=== PATIENT | female | born 1955 | race Caucasian/White ===

== ENCOUNTER 2020-07-20 13:57 | Outpatient (REF) | payer MEDICARE, SELFPAY | END 2020-07-20 13:58 | disposition home or self-care (01) | LOC: HO.LNP 13:57 | PROVIDERS: Visit Provider Hospitalist | DX: N39.0 Urinary tract infection, site not specified (principal) | CPT/HCPCS: 87086; 87088; 87186 ==

== ENCOUNTER 2020-11-23 07:56 | Outpatient (REF) | payer MEDICARE, SELFPAY ==
[2020-11-23 08:25] LABS: Glucose Urine UA NEG (NEG); Leukocyte Esterase Urine 1+ (NEG); Nitrite Urine POS (NEG); PH 5.5 (5.0-8.0); Urine Blood NEG (NEG); Urine Ketones NEG (NEG); Urine Protein NEG (NEG-TRACE)
[2020-11-23 08:26] LABS: Appearance Urine CLOUDY; Color Urine YELLOW
[2020-11-23 08:36] LABS: Bacteria Urine 4+ /LPF; RBC Urine 0 /HPF (0); Squamous Epithelial Cell Urine 1+ /LPF; Urine Talc Crystals 4+ /LPF
[2020-11-23 08:48] LABS: MANUAL DIFF FLAG NO
[2020-11-23 09:03] LABS: Basophils Absolute Auto 0.1 X10*3/uL (0.0-0.2); Basophils Percent Auto 0.8 % (0-2); Eosinophils Absolute Auto 0.3 X10*3/uL (0.0-0.4); Eosinophils Percent Auto 3.1 % (0-4); Hematocrit 47.1 % (37-47); Hemoglobin 15.6 g/dl (12.0-16.0); Imm Gran Abs Auto 0.02 X10*3/uL (0.00-0.03); Imm Gran Pct Auto 0.2 % (0.0-0.4); Lymphocytes Absolute Auto 3.2 X10*3/uL (1.2-4.9); Lymphocytes Percent Auto 37.9 % (20-40); Mean Corpuscular HGB Conc 33.1 g/dl (31.0-35.0); Mean Corpuscular Hemoglobin 30.2 pg (27.0-33.0); Mean Corpuscular Volume 91.3 fL (80-98); Mean Platelet Volume 9.6 fL (9.4-12.3); Monocytes Absolute Auto 0.8 X10*3/uL (0.1-1.2); Monocytes Percent Auto 9.6 % (2-11); Neutrophils Absolute Auto 4.1 X10*3/uL (2.0-8.3); Neutrophils Percent Auto 48.4 % (45-73); Platelet Count 308 X10*3/uL (160-400); Red Blood Count 5.16 X10*6/uL (4.20-5.50); Red Cell Distribution Width 13.6 % (11.0-16.0); White Blood Count 8.5 X10*3/uL (4.8-10.8)
[2020-11-23 09:15] LABS: Estimated Average Glucose 108 mg/dL; Hemoglobin A1c % 5.4 %
[2020-11-23 09:27] LABS: Alanine Aminotransferase 13 U/L (0-31); Albumin Level 4.6 g/dL (3.5-5.0); Alkaline Phosphatase 102 U/L (39-117); Anion Gap 12 (12-20); Aspartate Amino Transferase 17 U/L (5-31); Bilirubin Total 0.7 mg/dL (0.0-1.0); Blood Urea Nitrogen 14 mg/dL (9-16); Calcium 9.7 mg/dL (8.4-10.2); Carbon Dioxide 27 mmol/L (22-29); Chloride 105 mmol/L (96-108); Cholesterol 235 mg/dL; Estimated Glomerular Filt Rate > 60; Glucose Random 92 mg/dL (60-115); HDL Cholesterol 74 mg/dL; LDL Cholesterol Calculated 135 mg/dl; Potassium 4.3 mmol/L (3.3-5.1); Sodium 140 mmol/L (135-145); Total Protein 7.3 g/dL (6.5-8.0); Triglycerides 132 mg/dL
[2020-11-23 09:48] LABS: Free T4 (Free Thyroxine) 0.95 ng/dL (0.71-1.85); Thyroid Stimulating Hormone 1.79 uIU/mL (0.32-4.0); Vitamin D 25-OH Total 25.4 ng/mL (>30)
[2020-11-23 09:58] LABS: Folate 12.7 ng/mL (> or = 4.0); Vitamin B12 713 pg/mL (200-900)
== END 2020-11-23 07:57 | disposition home or self-care (01) ==
LOC: HO.LAB 07:56
PROVIDERS: PCP Internal Medicine; Visit Provider Internal Medicine
DX: E78.00 Pure hypercholesterolemia, unspecified (principal); R30.0 Dysuria
CPT/HCPCS: 36415; 80053; 80061; 81001; 82306; 82607; 82746; 83036; 84439; 84443; 85025; 87086; 87088; 87186

== ENCOUNTER 2021-02-19 14:42 | Outpatient (REF) | payer MEDICARE, SELFPAY ==
--- NOTE | ~2021-02-19 | US_ITS ---
EXAMINATION: US ABDOMEN LIMITED CLINICAL INFORMATION: Abnormal LFTs. COMPARISON: None TECHNIQUE: Real-time imaging of the right upper quadrant abdominal viscera. FINDINGS: PANCREAS: Normal. LIVER: Liver is of increased echogenicity consistent with fatty infiltration. The liver is normal in size. The liver contour is normal. No focal hepatic lesion. There is no intrahepatic biliary duct dilatation seen. GALLBLADDER: Normal. The gallbladder is physiologically distended without evidence of stones, sludge, polyps, wall thickening or pericholecystic fluid. COMMON BILE DUCT: Normal in caliber measuring 0.60 cm in diameter. RIGHT KIDNEY: Normal. No hydronephrosis. No renal calculi or focal parenchymal lesions. The kidney measures 9.9 cm in maximum dimension. FREE FLUID: None. US/US abdomen limited IMPRESSION: Fatty infiltration of the liver.
== END 2021-02-19 14:43 | disposition home or self-care (01) ==
LOC: HO.HMGCX 14:42
PROVIDERS: PCP Internal Medicine; Visit Provider Internal Medicine
DX: R10.11 Right upper quadrant pain (principal); R79.89 Other specified abnormal findings of blood chemistry
CPT/HCPCS: 76705

== ENCOUNTER 2021-11-12 07:57 | Outpatient (REF) | payer MEDICARE, SELFPAY ==
[2021-11-12 08:51] LABS: MANUAL DIFF FLAG NO
[2021-11-12 08:53] LABS: Basophils Absolute Auto 0.1 X10*3/uL (0.0-0.2); Basophils Percent Auto 1.2 % (0-2); Eosinophils Absolute Auto 0.4 X10*3/uL (0.0-0.4); Eosinophils Percent Auto 4.7 % (0-4); Hematocrit 47.3 % (37.0-47.0); Hemoglobin 15.5 g/dl (12.0-16.0); Imm Gran Abs Auto 0.01 X10*3/uL (0.00-0.03); Imm Gran Pct Auto 0.1 % (0.0-0.4); Lymphocytes Absolute Auto 3.1 X10*3/uL (1.2-4.9); Lymphocytes Percent Auto 40.6 % (20-40); Mean Corpuscular HGB Conc 32.8 g/dl (31.0-35.0); Mean Corpuscular Hemoglobin 30.3 pg (27.0-33.0); Mean Corpuscular Volume 92.6 fL (80.0-98.0); Mean Platelet Volume 9.1 fL (9.4-12.3); Monocytes Absolute Auto 0.8 X10*3/uL (0.1-1.2); Monocytes Percent Auto 9.9 % (2-11); Neutrophils Absolute Auto 3.3 x10*3/uL (2.0-8.3); Neutrophils Percent Auto 43.5 % (45-73); Platelet Count 289 X10*3/uL (160-400); Red Blood Count 5.11 X10*6/uL (4.20-5.50); Red Cell Distribution Width 13.4 % (11.0-16.0); White Blood Count 7.7 X10*3/uL (4.8-10.8)
[2021-11-12 09:17] LABS: Estimated Average Glucose 108 mg/dL; Hemoglobin A1c % 5.4 %
[2021-11-12 09:23] LABS: Alanine Aminotransferase 11 U/L (0-31); Albumin Level 4.4 g/dL (3.5-5.0); Alkaline Phosphatase 88 U/L (39-117); Anion Gap 11 (12-20); Aspartate Amino Transferase 18 U/L (5-31); Bilirubin Total 0.7 mg/dL (0.0-1.0); Blood Urea Nitrogen 14 mg/dL (9-16); Calcium 9.7 mg/dL (8.4-10.2); Carbon Dioxide 30 mmol/L (22-29); Chloride 106 mmol/L (96-108); Cholesterol 222 mg/dL; Estimated Glomerular Filt Rate > 60; Glucose Random 98 mg/dL (60-115); HDL Cholesterol 70 mg/dL; LDL Cholesterol Calculated 125 mg/dl; Potassium 4.5 mmol/L (3.3-5.1); Sodium 142 mmol/L (135-145); Total Protein 7.1 g/dL (6.5-8.0); Triglycerides 135 mg/dL
[2021-11-12 09:38] LABS: Free T4 (Free Thyroxine) 1.04 ng/dL (0.71-1.85); Vitamin D 25-OH Total 39.9 ng/mL (>30)
[2021-11-12 09:40] LABS: Appearance Urine HAZY; Color Urine YELLOW; Glucose Urine UA NEG (NEG); Leukocyte Esterase Urine 1+ (NEG); Nitrite Urine NEG (NEG); PH 5.5 (5.0-8.0); Specific Gravity - Urine <= 1.005 (1.005-1.025); Urine Blood TRACE (NEG); Urine Ketones NEG (NEG); Urine Protein NEG (NEG-TRACE)
[2021-11-12 10:01] LABS: RBC Urine 0-2 /HPF (0); Squamous Epithelial Cell Urine 2+ /LPF
[2021-11-12 10:06] LABS: Bacteria Urine 1+ /LPF; Mucus Urine 1+ /LPF
[2021-11-12 10:08] LABS: Folate 17.2 ng/mL (> or = 4.0); Vitamin B12 619 pg/mL (200-900)
== END 2021-11-12 07:58 | disposition home or self-care (01) ==
LOC: HO.LAB 07:57
PROVIDERS: PCP Internal Medicine; Visit Provider Internal Medicine
DX: E78.00 Pure hypercholesterolemia, unspecified (principal); R73.01 Impaired fasting glucose; R30.0 Dysuria
CPT/HCPCS: 36415; 80053; 80061; 81001; 82306; 82607; 82746; 83036; 84439; 84443; 85025

== ENCOUNTER 2022-04-23 08:41 | Outpatient (REF) | payer MEDICARE, SELFPAY ==
[2022-04-23 08:56] LABS: MANUAL DIFF FLAG NO
[2022-04-23 09:26] LABS: Basophils Absolute Auto 0.1 X10*3/uL (0.0-0.2); Basophils Percent Auto 0.7 % (0-2); Eosinophils Absolute Auto 0.1 X10*3/uL (0.0-0.4); Eosinophils Percent Auto 1.5 % (0-4); Hematocrit 45.8 % (37.0-47.0); Hemoglobin 15.1 g/dl (12.0-16.0); Imm Gran Abs Auto 0.03 X10*3/uL (0.00-0.03); Imm Gran Pct Auto 0.4 % (0.0-0.4); Lymphocytes Percent Auto 35.4 % (20-40); Mean Corpuscular Hemoglobin 30.5 pg (27.0-33.0); Mean Corpuscular Volume 92.5 fL (80.0-98.0); Mean Platelet Volume 9.4 fL (9.4-12.3); Monocytes Absolute Auto 0.9 X10*3/uL (0.1-1.2); Neutrophils Absolute Auto 4.4 x10*3/uL (2.0-8.3); Platelet Count 287 X10*3/uL (160-400); Red Blood Count 4.95 X10*6/uL (4.20-5.50); Red Cell Distribution Width 13.7 % (11.0-16.0); White Blood Count 8.5 X10*3/uL (4.8-10.8)
[2022-04-23 10:36] LABS: Folate 16.9 ng/mL (> or = 4.0); Vitamin B12 542 pg/mL (200-900)
[2022-04-23 10:54] LABS: Appearance Urine CLEAR; Color Urine STRAW; Glucose Urine UA NEG (NEG); Leukocyte Esterase Urine 1+ (NEG); Nitrite Urine NEG (NEG); Specific Gravity - Urine <= 1.005 (1.005-1.025); Urine Blood NEG (NEG); Urine Ketones NEG (NEG); Urine Protein NEG (NEG-TRACE)
[2022-04-23 11:09] LABS: Bacteria Urine TRACE /LPF; RBC Urine 0-2 /HPF (0); Squamous Epithelial Cell Urine 2+ /LPF
[2022-04-23 13:55] LABS: Alanine Aminotransferase 16 U/L (0-31); Albumin Level 4.5 g/dL (3.5-5.0); Alkaline Phosphatase 79 U/L (39-117); Anion Gap 15 (12-20); Aspartate Amino Transferase 20 U/L (5-31); Bilirubin Total 0.7 mg/dL (0.0-1.0); Blood Urea Nitrogen 16 mg/dL (9-16); Calcium 9.3 mg/dL (8.4-10.2); Carbon Dioxide 27 mmol/L (22-29); Chloride 105 mmol/L (96-108); Cholesterol 234 mg/dL; Estimated Glomerular Filt Rate > 60; Glucose Random 96 mg/dL (60-115); HDL Cholesterol 72 mg/dL; LDL Cholesterol Calculated 137 mg/dl; Potassium 4.5 mmol/L (3.3-5.1); Sodium 142 mmol/L (135-145); Triglycerides 127 mg/dL
[2022-04-23 14:00] LABS: Estimated Average Glucose 105 mg/dL; Hemoglobin A1c % 5.3 %
[2022-04-23 14:03] LABS: Free T4 (Free Thyroxine) 0.94 ng/dL (0.71-1.85); Vitamin D 25-OH Total 39.6 ng/mL (>30)
== END 2022-04-23 08:42 | disposition home or self-care (01) ==
LOC: HO.LAB 08:41
PROVIDERS: PCP Internal Medicine; Visit Provider Internal Medicine
DX: R73.01 Impaired fasting glucose (principal); R30.0 Dysuria; E78.00 Pure hypercholesterolemia, unspecified
CPT/HCPCS: 36415; 80053; 80061; 81001; 82306; 82607; 82746; 83036; 84439; 84443; 85025

== ENCOUNTER 2022-07-04 07:19 | Emergency (ER) | payer MEDICARE, SELFPAY ==
--- NOTE | ~2022-07-04 | XR_ITS ---
EXAMINATION: XR WRIST, LEFT XR FOREARM, LEFT CLINICAL INFORMATION: Status post fall. COMPARISON: None TECHNIQUE: 3 views of the left wrist. 2 views of the left forearm. FINDINGS: Mild osseous demineralization is noted. Although not clearly appreciated on the wrist x-rays I do suspect nondisplaced fracture of the distal radial metaphysis on the lateral view of the forearm, with questionable intra-articular extension. No additional definite acute fractures are noted in the left wrist and left forearm. Elbow joint and wrist joint alignments are maintained. No evidence of soft tissue air or radiopaque foreign body. No evidence of elbow joint effusion. XR/XR forearm LT 2V IMPRESSION: Nondisplaced left distal radial metaphyseal fracture with probable intra-articular extension is suspected. Recommend clinical correlation. No additional acute fractures are noted in the left wrist and left forearm.
--- NOTE | ~2022-07-04 | XR_ITS ---
EXAMINATION: XR WRIST, LEFT XR FOREARM, LEFT CLINICAL INFORMATION: Status post fall. COMPARISON: None TECHNIQUE: 3 views of the left wrist. 2 views of the left forearm. FINDINGS: Mild osseous demineralization is noted. Although not clearly appreciated on the wrist x-rays I do suspect nondisplaced fracture of the distal radial metaphysis on the lateral view of the forearm, with questionable intra-articular extension. No additional definite acute fractures are noted in the left wrist and left forearm. Elbow joint and wrist joint alignments are maintained. No evidence of soft tissue air or radiopaque foreign body. No evidence of elbow joint effusion. XR/XR wrist LT 2V IMPRESSION: Nondisplaced left distal radial metaphyseal fracture with probable intra-articular extension is suspected. Recommend clinical correlation. No additional acute fractures are noted in the left wrist and left forearm.
[2022-07-04 07:26] VITALS: BP 147/94; PULSE 84; RESP 16; TEMP 36.8; O2SAT 94; BMI 26.0
[2022-07-04 07:37] VITALS: BP 150/92; PULSE 91; RESP 14; TEMP 36.7; O2SAT 94
[2022-07-04] MEDS: Acetaminophen 325 MG TABLET 975 MG PO (08:40)
[2022-07-04] MEDS: Ibuprofen 400 MG TABLET PO (08:41)
--- NOTE | 2022-07-04 08:42 | PC.NURSE ---
patient a/ox4 . jimrla . heart rate regular at 88 beats per minute . lungs clear . skin pink warm and dry . patient came in for a fall out of bed this AM onto left wrist , reports pain 8 out of 10 .Obtained order for Tylenol 975 and 400mg of Motrin administered to patient as ordered . positive CMS . Patient has had Xray done . patient aware of plan of care .
--- NOTE | 2022-07-04 09:46 | ED_ITS ---
HPI - Extremity Problem General Chief complaint: Extremity Injury, Upper Stated complaint: fall L hand INJ/swollen Time Seen by Provider: 07/04/22 08:05 Source: patient Mode of arrival: ambulatory History of Present Illness HPI Narrative: 67-year-old female with history of COPD presents with left wrist pain after she states she fell out of bed catching herself on her left wrist. She notes that it was painful thereafter but denies any numbness or tingling. Related Data Home Medications Medication Instructions Recorded Confirmed diazepam 10 mg tablet 10 mg PO TID PRN 07/20/20 04/29/22 fluticasone furoate 200 inhalation 07/20/20 04/29/22 mcg-vilanterol 25 mcg/dose inhalation powder ipratropium 0.5 mg-albuterol 3 mg ml inhalation Q6H 07/20/20 04/29/22 (2.5 mg base)/3 mL nebulization soln ipratropium 20 mcg-albuterol 100 inhalation 07/20/20 04/29/22 mcg/actuation mist for inhalation ipratropium bromide 0.02 % 1 inhalation Q8H 07/20/20 04/29/22 solution for inhalation Allergies Allergy/AdvReac Type Severity Reaction Status Date / Time doxycycline Allergy Intermediate unknown Verified 07/04/22 07:26 meperidine [Demerol] Allergy Intermediate nausea and Verified 07/04/22 07:26 vomiting morphine [MORPHINE] Allergy Intermediate NAUSEA & Verified 07/04/22 07:26 VOMITING, nausea and vomiting oxycodone [OXYCODONE] Allergy Intermediate NAUSEA & Verified 07/04/22 07:26 VOMITING OxyContin Allergy Unknown nausea and Uncoded 04/29/22 09:46 vomiting Review of Systems Review of Systems: Pertinent positives and negatives as stated in HPI 10 point review of systems is otherwise negative. PMFSH Past Medical History Source: nursing notes reviewed Medical History Allergic rhinitis COPD (chronic obstructive pulmonary disease) Generalized anxiety disorder Hypercholesterolemia Right rib fracture Surgical History History of ankle surgery History of pubovaginal sling History of repair of rotator cuff History of tonsillectomy History of tubal ligation Family History Family History Father CVD (cardiovascular disease) Myocardial infarction Mother Hypertension Sister No problems noted. Son No problems noted. Son No problems noted. Daughter No problems noted. Daughter No problems noted. Social History Social History Housing: House Alcohol intake: never Patient Tobacco Use Status: Former Tobacco user e-Cigarette/Vaping Use: Never Used Advance Directives: Yes Advance Directives Information Provided: Yes Advance Directives on File: No service: No Cognitive needs: No Hearing needs: No Vision needs: Yes Physical Exam Vital Signs: Vital Signs: Last Vital Signs Temp 98.1 F 07/04/22 07:37 Pulse 91 07/04/22 07:37 Resp 14 07/04/22 07:37 BP 150/92 H 07/04/22 07:37 Pulse Ox 94 07/04/22 07:37 O2 Del Method 07/04/22 07:37 BMI result Body Mass Index 26.0 VITAL SIGNS: Reviewed. GENERAL: Well developed, well nourished, in no acute distress. HEAD: Normocephalic/atraumatic EYES: PERRLA, EOMI EARS: Ext canals without abnormality OROPHARYNX: no oral lesions noted, posterior pharynx clear LUNGS: Normal breath sounds. No adventitious sounds or accessory muscle use. SpO2<94> CARDIOVASCULAR: Regular rate and rhythm without noted murmurs ABDOMEN: Soft, non-tender, non-distended with bowel sounds. MUSCULOSKELETAL: No tenderness, deformities, or effusions noted on gross inspection. EXTREMITIES: No cyanosis, clubbing or edema;LUE: Mild swelling at the radial aspect of left upper extremity minimal deformity sensation pulses intact hand is warm. SKIN: Inspection of the skin reveals no rashes NEUROLOGIC: Alert and oriented x 4. Strength and sensation to light touch were grossly intact x 4. Course Course Course Narrative: 67-year-old female with history and clinical presentation consistent with suspected fracture and on review of imaging studies there is in nondisplaced distal radial fracture, patient received combination analgesics as well as ice for pain control and on re-evaluation her pain has completely resolved. Sugar- tong splint was put in place and patient will receive a referral to follow-up with orthopedic surgery. She is aware of all results and acknowledges the plan. Discharge Plan Discharge Clinical Impression: Nondisplaced fracture of head of left radius Patient Disposition: Home, Self-Care Instructions: Arm Fracture in Adults (ED), Splint Care (ED) Additional Instructions: 1. Resume all home medications as prescribed. 2. Recommend [id number] Tylenol/ibuprofen as needed for pain control. Also apply ice to unexposed skin for 10-15 minutes, 3 to 4 times a day. 3. You have been provided with a referral to follow-up with orthopedic surgery. Return to the ER for worsening symptoms. Prescriptions: No Action Breo Ellipta 200-25 mcg/dose blister with device inhalation Combivent Respimat 20-100 mcg/actuation mist inhalation diazepam 10 mg tablet 10 mg PO TID PRN ipratropium bromide 0.02 % solution 1 inhalation Q8H ipratropium-albuterol 0.5 mg-3 mg(2.5 mg base)/3 mL solution for nebulization inhalation Q6H Referrals: Otoniel Maki MD [Physician] - (Left is nondominant hand, not displaced left radius fracture, sugar-tong splint is in place) Po,Daniel Lowery MD [Primary Care Provider] -
[2022-07-04 10:41] VITALS: BP 148/88; PULSE 88; RESP 16; TEMP 36.7; O2SAT 96
--- NOTE | 2022-07-04 10:42 | PC.NURSE ---
patient a/ox4 . went over discharge instructions as ordered by provider . patient given contact information for follow up with orthopedics . Given education on CMS checks on left hand and when to return to ED . Patient has no questions at this time .
== END 2022-07-04 10:45 | disposition home or self-care (01) ==
PROVIDERS: Emergency Provider Student in an Organized Health Care Education/Training Program; PCP Internal Medicine
DX: S52.122A Displaced fracture of head of left radius, initial encounter for closed fracture (principal); W06.XXXA Fall from bed, initial encounter; Y93.9 Activity, unspecified; Y92.003 Bedroom of unspecified non-institutional (private) residence as the place of occurrence of the external cause; Y99.9 Unspecified external cause status; Z79.899 Other long term (current) drug therapy; Z87.891 Personal history of nicotine dependence
CPT/HCPCS: 29105; 73090; 73100; 99284

== ENCOUNTER 2022-07-09 05:17 | Outpatient (REF) | payer MEDICARE, SELFPAY ==
--- NOTE | ~2022-07-09 | XR_ITS ---
EXAMINATION: XR WRIST, LEFT CLINICAL INFORMATION: Pain. COMPARISON: Left wrist radiograph 07/04/2022. TECHNIQUE: PA, lateral, and oblique views of the left wrist. FINDINGS: Again noted very subtle nondisplaced distal radial fracture with intra-articular extension. No new injuries. Anatomic alignment is maintained. 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 No erosions. Nonspecific diffuse soft tissue swelling. XR/XR wrist LT min 3V IMPRESSION: 1. Redemonstration of a very subtle nondisplaced distal radial fracture with intra-articular extension. 2. No new injuries.
== END 2022-07-09 05:18 | disposition home or self-care (01) ==
LOC: HO.HOSX 05:17
PROVIDERS: Visit Provider Physician Assistant
DX: M25.532 Pain in left wrist (principal); S52.502A Unspecified fracture of the lower end of left radius, initial encounter for closed fracture; W06.XXXA Fall from bed, initial encounter; Y93.9 Activity, unspecified; Y92.9 Unspecified place or not applicable; Y99.8 Other external cause status
CPT/HCPCS: 29085; 73110; 99202

== ENCOUNTER 2022-08-20 08:07 | Outpatient (REF) | payer MEDICARE, SELFPAY ==
--- NOTE | ~2022-08-20 | XR_ITS ---
EXAMINATION: XR WRIST, LEFT CLINICAL INFORMATION: Left wrist pain. COMPARISON: July 09, 2022 and July 04, 2022. TECHNIQUE: PA, lateral, and oblique views of the left wrist. XR/XR wrist LT min 3V FINDINGS/IMPRESSION: Decreased bone mineral density limits sensitivity for subtle fracture. Lucencies overlying the distal radius and ulna appear to represent skin folds. No definite acute fracture is identified as such. If clinical suspicion for nondisplaced fracture persists, nuclear bone scan or MRI may be of use for further evaluation. The trapezium appears surgically absent. No dislocation is seen. The soft tissues appear unremarkable.
== END 2022-08-20 08:08 | disposition home or self-care (01) ==
LOC: HO.HOSX 08:07
PROVIDERS: Visit Provider Physician Assistant
DX: M25.532 Pain in left wrist (principal)
CPT/HCPCS: 73110; 99212

== ENCOUNTER → 2022-08-20 13:17 | Outpatient (BNVA) | payer MEDICARE, SELFPAY | PROVIDERS: PCP Internal Medicine; Visit Provider Physician Assistant | DX: S52.502D Unspecified fracture of the lower end of left radius, subsequent encounter for closed fracture with routine healing (principal) | CPT/HCPCS: 99212 ==

== ENCOUNTER 2022-09-16 09:18 | Outpatient (REF) | payer MEDICARE, SELFPAY ==
--- NOTE | ~2022-09-16 | XR_ITS ---
EXAMINATION: XR HAND, RIGHT CLINICAL INFORMATION: Pain. COMPARISON: None TECHNIQUE: PA, lateral, and oblique views of the right hand. FINDINGS: There is diffuse osteopenia. No visible fracture, dislocation or subluxation seen. There is loss of PIP and DIP joint space. The soft tissues are normal. XR/XR hand RT min 3V IMPRESSION: Mild degenerative osteoarthritic changes without any acute fracture or dislocation. Diffuse osteopenia.
== END 2022-09-16 09:19 | disposition home or self-care (01) ==
LOC: HO.HOSX 09:18
PROVIDERS: Visit Provider Orthopaedic Surgery
DX: S52.502A Unspecified fracture of the lower end of left radius, initial encounter for closed fracture (principal); M18.11 Unilateral primary osteoarthritis of first carpometacarpal joint, right hand
CPT/HCPCS: 20600; 73130; 99212; J1020

== ENCOUNTER 2022-10-01 06:17 | Outpatient (REF) | payer MEDICARE, SELFPAY ==
--- NOTE | ~2022-10-01 | XR_ITS ---
EXAMINATION: XR WRIST, LEFT CLINICAL INFORMATION: Left wrist pain COMPARISON: 08/20/2022 TECHNIQUE: PA, lateral, and oblique views of the left wrist. FINDINGS: Subtle residual evidence with linear sclerosis of the healed distal radius fracture. There has been resection of the trapezium with radiocarpal and carpal degenerative changes that appear similar. Calcinosis at the radial aspect of the 5th metacarpal head again noted. There is no acute osseous abnormality. XR/XR wrist LT min 3V IMPRESSION: Healed distal radius fracture. No acute osseous abnormality. Degenerative and postoperative changes as described.
== END 2022-10-01 06:18 | disposition home or self-care (01) ==
LOC: HO.HOSX 06:17
PROVIDERS: Visit Provider Physician Assistant
DX: S52.502D Unspecified fracture of the lower end of left radius, subsequent encounter for closed fracture with routine healing (principal); X58.XXXD Exposure to other specified factors, subsequent encounter; Z98.890 Other specified postprocedural states
CPT/HCPCS: 73110; 99212

== ENCOUNTER 2023-01-28 06:56 | Outpatient (REF) | payer MEDICARE, SELFPAY ==
--- NOTE | ~2023-01-28 | XR_ITS ---
EXAMINATION: XR SHOULDER, RIGHT CLINICAL INFORMATION: Pain in right shoulder COMPARISON: None available. TECHNIQUE: AP external rotation, Grashey, scapular Y, and axillary views of the right shoulder. FINDINGS: Patient is status post rotator cuff tear repair with 3 anchors in the region of greater tuberosity. The joint space is preserved. There is widening of right acromioclavicular joint. There are mild degenerative changes at greater tuberosity. XR/XR shoulder RT min 2V IMPRESSION: Postsurgical changes. AC joint degenerative changes
== END 2023-01-28 06:57 | disposition home or self-care (01) ==
LOC: HO.HOSX 06:56
PROVIDERS: Visit Provider Physician Assistant
DX: M75.81 Other shoulder lesions, right shoulder (principal); M25.511 Pain in right shoulder
CPT/HCPCS: 20610; 73030; 99212; J1040

== ENCOUNTER 2023-02-03 10:06 | Outpatient (REF) | payer MEDICARE, SELFPAY ==
--- NOTE | ~2023-02-03 | MM_ITS ---
EXAMINATION: MM SCREENING DIGITAL BREAST TOMOSYNTHESIS, BILATERAL CLINICAL INFORMATION: Screening. Asymptomatic. The lifetime risk of breast cancer based on the Tyrer-Cuzick Model is 3%. COMPARISON: Mammography: 10/25/2019, 06/13/2014 TECHNIQUE: Digital breast tomosynthesis is performed in both the craniocaudal and mediolateral oblique views along with computer-aided detection (CAD). Synthesized 2D images are generated from the tomosynthesis. FINDINGS: There are scattered areas of fibroglandular density (ACR BI-RADS breast composition Category b). There are no significant masses, abnormal calcifications, or other abnormalities. Parenchymal pattern is similar to prior studies. There is no developing density or architectural abnormality. The axilla and skin contours are unremarkable. No significant changes. MM/MM tomosynthesis screening BI IMPRESSION: No mammographic evidence of malignancy. ASSESSMENT: BI-RADS 1: Negative RECOMMENDATION: Routine annual mammography screening. This patient's information was entered into a reminder system with a target due date for their next mammogram.
--- NOTE | ~2023-02-03 | MM_ITS ---
EXAMINATION: BONE DENSITOMETRY CLINICAL INDICATION: Age-related osteoporosis without current pathological fracture. COMPARISON: Baseline BD dated 10/25/2019. TECHNIQUE: Using a [employer]uff[employer] DXA System (software version: 13.1) manufactured by [employer], dual-energy x-ray absorptiometry was performed of the lumbar spine and left hip. The images are of good technical quality. Summary results are attached. FINDINGS: AP SPINE L1-L3 (excluding L4): The data of L1-L4 has been changed to exclude the L4 vertebral body, because degenerative changes at this level may cause overestimation of lumbar spine density. Current: BMD 0.880 g/cm2, Z-score -1.0, T-score -2.4, osteopenia, 0.7% decrease from baseline (<5% change is not significant). Baseline: BMD 0.886 g/cm2. LEFT FEMUR, NECK: Current: BMD 0.673 g/cm2, Z-score -1.2, T-score -2.6, osteoporosis. Baseline: BMD 0.851 g/cm2. LEFT FEMUR, TOTAL: Current: BMD 0.760 g/cm2, Z-score -0.8, T-score -2.0, osteopenia, 8.8% decrease from baseline (<5% change is not significant). Baseline: BMD 0.833 g/cm2. IDENTIFIED RISK FACTORS: Early menopause, secondary osteoporosis, history of fracture (adult), glucocorticoids (chronic). HISTORY OF FRACTURE: Wrist. Rib. MEDICATIONS: None listed. MM/XR DEXA axial skeleton IMPRESSION: 1. DIAGNOSIS: Osteoporosis based on the lowest T-score value of -2.6 in the femoral neck applying World Health Organization criteria. 2. 10-YEAR FRACTURE RISK PREDICTION, FRAX: According to the guidelines, FRAX calculation should only be performed on patients in the osteopenia bone density category. Therefore, FRAX was not performed on this patient. 3. Treatment Recommendations: NOF guidelines recommend consideration for treatment in postmenopausal women and men age 50 and older presenting with the following: -A hip or vertebral (clinical or morphometric) fracture. -T-score less than or equal to -2.5 at the femoral neck or spine after appropriate evaluation to exclude secondary causes. -Low bone mass at the hip or spine and a 10-year fracture probability by FRAX of greater than or equal to 3% for hip fracture or greater than or equal to 20% for major osteoporotic fracture based on the [place] adapted WHO algorithm. 4. Other Recommendations: All treatment decisions require clinical judgment and consideration of individual patient factors, including patient preferences, comorbidities, previous drug use, risk factors not captured in the FRAX model (e.g. frailty, falls, vitamin D deficiency, increased bone turnover, interval significant decline in bone density) and possible under or overestimation of fracture risk by FRAX. Additional medical evaluation for secondary cause of low bone mineral density may be appropriate. FUTURE SCAN RECOMMENDATION: People with diagnosed cases of osteoporosis or at high risk for fracture should have regular bone mineral density tests. For patients eligible for Medicare, routine testing is allowed once every 2 years. The testing frequency can be increased to one year for patients who have rapidly progressing disease, those who are receiving or discontinuing medical therapy to restore bone mass, or have additional risk factors.
== END 2023-02-03 10:07 | disposition home or self-care (01) ==
LOC: HO.MAMMO 10:06
PROVIDERS: PCP Internal Medicine; Visit Provider Internal Medicine
DX: Z12.31 Encounter for screening mammogram for malignant neoplasm of breast (principal); Z13.820 Encounter for screening for osteoporosis; Z78.0 Asymptomatic menopausal state; M81.0 Age-related osteoporosis without current pathological fracture
CPT/HCPCS: 77063; 77067; 77080

== ENCOUNTER 2023-02-08 10:01 | Emergency (ER) | payer MEDICARE, SELFPAY ==
--- NOTE | ~2023-02-08 | XR_ITS ---
EXAMINATION: XR CHEST CLINICAL INFORMATION: Cough, shortness of breath. COMPARISON: 09/15/2019 chest and rib radiographs. TECHNIQUE: 2 views of the chest were obtained. FINDINGS: A small hazy opacity overlies the right lower lung. Mild linear markings are seen at the left lung base. The upper lung rosas are clear. There are no pleural effusions. The heart and mediastinal structures are unremarkable. XR/XR chest 2V IMPRESSION: Right middle lobe infiltrate.
[2023-02-08 10:08] VITALS: BP 149/84; PULSE 77; RESP 18; TEMP 36.8; O2SAT 96; BMI 27.7
--- NOTE | 2023-02-08 10:50 | ED_ITS ---
HPI - General Adult General Chief complaint: Upper Respiratory Symptoms Stated complaint: Diff breathing Time Seen by Provider: 02/08/23 10:34 Source: patient Limitations: no limitations History of Present Illness HPI narrative: 68-year-old female with longstanding history of COPD presents with increasing cough congestion since sick contacts with at home. Patient denies history of hypertension or diabetes. Patient quit smoking many years prior. Cough is mostly nonproductive and she has chest wall discomfort with coughing. No recent travel history. Symptoms mild to moderate. No other complaints at this time. Related Data Home Medications Medication Instructions Recorded Confirmed diazepam 10 mg tablet 10 mg PO TID PRN 07/20/20 12/18/22 fluticasone furoate 200 inhalation 07/20/20 12/18/22 mcg-vilanterol 25 mcg/dose inhalation powder ipratropium 0.5 mg-albuterol 3 mg ml inhalation Q6H 07/20/20 12/18/22 (2.5 mg base)/3 mL nebulization soln ipratropium 20 mcg-albuterol 100 inhalation 07/20/20 12/18/22 mcg/actuation mist for inhalation ipratropium bromide 0.02 % 1 inhalation Q8H 07/20/20 12/18/22 solution for inhalation Previous Rx's Medication Instructions Recorded azithromycin 250 mg tablet 250 mg PO DAILY 5 days #6 tabs 02/08/23 benzonatate 100 mg capsule 100 mg PO BID PRN cough #10 caps 02/08/23 prednisone 20 mg tablet 40 mg PO DAILY 5 days #10 tabs 02/08/23 Allergies Allergy/AdvReac Type Severity Reaction Status Date / Time doxycycline Allergy Intermediate unknown Verified 02/08/23 10:08 meperidine [Demerol] Allergy Intermediate nausea and Verified 02/08/23 10:08 vomiting morphine [MORPHINE] Allergy Intermediate NAUSEA & Verified 02/08/23 10:08 VOMITING, nausea and vomiting oxycodone [OXYCODONE] Allergy Intermediate NAUSEA & Verified 02/08/23 10:08 VOMITING OxyContin Allergy Unknown nausea and Uncoded 08/20/22 13:34 vomiting Review of Systems Review of Systems: General: No fever, no chills Ophthalmology: No vision changes, no discharge ENT: No sore throat, no ear pain Cardiovascular: Chest wall pain with coughing slight Respiratory: Positive cough positive shortness of breath sputum production minimal Muscle skeletal: No malaise, no back pain, no neck pain, no extremity pain GI: No abdominal pain: no nausea vomiting, no diarrhea Skin: No rash PMFSH Past Medical History Attestation statement: The following information was validated with the patient. Medical History Allergic rhinitis COPD (chronic obstructive pulmonary disease) Generalized anxiety disorder Hypercholesterolemia Right rib fracture Surgical History History of ankle surgery History of pubovaginal sling History of repair of rotator cuff History of tonsillectomy History of tubal ligation Family History Family History Father CVD (cardiovascular disease) Myocardial infarction Mother Hypertension Sister No problems noted. Son No problems noted. Son No problems noted. Daughter No problems noted. Daughter No problems noted. Social History Social History Housing: House Alcohol intake: never Patient Tobacco Use Status: Former Tobacco user e-Cigarette/Vaping Use: Never Used Advance Directives: No Advance Directives Information Provided: Yes service: No Current occupational status: retired Cognitive needs: No Hearing needs: No Vision needs: Yes Physical Exam ED Vital Signs: Vital Signs - 24 hr 02/08/23 10:08 Temperature 98.2 F Pulse Rate 77 Respiratory Rate 18 Blood Pressure 149/84 H Pulse Oximetry 96 Oxygen Delivery Method Room Air BMI result Body Mass Index 27.7 General appearance: Awake, alert, cooperative, in no acute distress Skin: Warm, dry, no rash Eyes: PERRL, EOMI, no icterus ENT: Oropharynx normal, uvula midline bilateral ear is no erythema TM intact Neck: Soft supple full range of motion Pulmonary: S sounds coarse few wheezes no accessory muscle use Cardiovascular: Regular rate and rhythm, no murmurs and rubs Abdomen: Soft nontender, no rebound or guarding, positive bowel sounds Extremities: No deformity, nontender, no peripheral edema noted Neuro: Alert oriented x3, no focal deficit Psych: Normal affect Course Course Course Narrative: Pneumonia Acute bronchitis COPD exacerbation Viral syndrome COVID-19 Influenza 68-year-old female with longstanding history of COPD presents with asthma simil ar symptoms cough chest congestion and wheezes. Difficulty sleeping at night cough is mostly nonproductive DuoNeb x1 40 mg prednisone Chest x-ray pending 100 mg Tessalon Perles 11:44 improved aeration status post treatments patient's x-ray showed right middle lobe pneumonia will treat with Z-Yuval at this time Tessalon Perles for cough and a short course of prednisone. Will also treat as he has been, contaminated with her. Although his chest x-ray was negative case discussed with both and at length. Medications Administered Discontinued Medications Generic Name Dose Route Start Last Admin Trade Name Curtis PRN Reason Stop Dose Admin Benzonatate 200 mg 02/08/23 10:44 02/08/23 10:59 Benzonatate 100 Mg Capsule PO 02/08/23 10:45 200 mg ONCE ONE Administration Benzonatate 200 mg 02/08/23 10:48 02/08/23 10:59 Benzonatate 100 Mg Capsule PO 02/08/23 10:49 Not Given ONCE ONE Albuterol Sulfate 2.5 mg/ 0 mg 02/08/23 10:42 02/08/23 10:53 Albuterol/Ipratropium 3 ml INHALE 02/08/23 10:43 1 each ONCE ONE Administration Prednisone 40 mg 02/08/23 10:42 02/08/23 10:59 Prednisone 20 Mg Tablet PO 02/08/23 10:43 40 mg ONCE ONE Administration Medical Decision Making Lab Data Labs: Lab Results 02/08/23 Range/Units 10:20 Influenza Type A (PCR) NEGATIVE (Negative) Influenza Type B (PCR) NEGATIVE (Negative) RSV RNA Qual (PCR) NEGATIVE (Negative) SARS-CoV-2 RNA (RT-PCR) NEGATIVE (Negative) Radiology Impression Discussion of test interpretation with radiology: I have reviewed the radiologist's reading. Radiologist Impression: Chest x-ray right middle lobe pneumonia Discharge Plan Discharge Clinical Impression: Pneumonia, COPD exacerbation Patient Disposition: Home, Self-Care Instructions: COPD (Chronic Obstructive Pulmonary Disease) (ED), Community Acquired Pneumonia (ED) Additional Instructions: Respiratory swab swab was negative for COVID-19 influenza and RSV Symptoms are consistent with COPD exacerbation with a right middle lobe pneumonia that was seen on chest x-ray Increase fluids rest call PCP for follow-up Return if symptoms worsen Prescriptions: New azithromycin 250 mg tablet 250 mg PO DAILY 5 Days Qty: 6 0RF Rx Instructions: 500 mg day 1 250mg day 2 through 5 benzonatate 100 mg capsule 100 mg PO BID PRN (Reason: cough) Qty: 10 0RF prednisone 20 mg tablet 40 mg PO DAILY 5 Days Qty: 10 0RF Rx Instructions: Start prednisone 02/09/2023 No Action Breo Ellipta 200-25 mcg/dose blister with device inhalation Combivent Respimat 20-100 mcg/actuation mist inhalation diazepam 10 mg tablet 10 mg PO TID PRN ipratropium bromide 0.02 % solution 1 inhalation Q8H ipratropium-albuterol 0.5 mg-3 mg(2.5 mg base)/3 mL solution for nebulization inhalation Q6H
[2023-02-08] MEDS: predniSONE 20 MG TABLET 40 MG PO (10:59)
[2023-02-08] MEDS: Benzonatate 100 MG CAPSULE 200 MG PO (10:59)
--- NOTE | 2023-02-08 11:00 | PC.NURSE ---
patient a&ox3, lungs clear/diminished pt medicated per order, RT at bedside for updraft, will continue to monitor
[2023-02-08 11:05] LABS: Influenza A PCR NEGATIVE (Negative); Influenza B PCR NEGATIVE (Negative); Resp Syncy Virus RNA Qual PCR NEGATIVE (Negative); SARS COV2 PCR INHOUSE NEGATIVE (Negative)
== END 2023-02-08 12:11 | disposition home or self-care (01) ==
PROVIDERS: Emergency Provider Emergency Medicine Emergency Medical Services; PCP Internal Medicine
DX: J18.9 Pneumonia, unspecified organism (principal); J44.1 Chronic obstructive pulmonary disease with (acute) exacerbation; R06.02 Shortness of breath; Z87.891 Personal history of nicotine dependence; Z20.822 Contact with and (suspected) exposure to COVID-19; Z20.828 Contact with and (suspected) exposure to other viral communicable diseases
CPT/HCPCS: 0241U; 71046; 94640; 99283

== ENCOUNTER 2023-02-17 09:37 | Emergency (ER) | payer MEDICARE, SELFPAY ==
--- NOTE | ~2023-02-17 | XR_ITS ---
EXAMINATION: XR CHEST CLINICAL INFORMATION: Cough. COMPARISON: Chest 02/08/2023 TECHNIQUE: 2 views of the chest were obtained. FINDINGS: The lungs are well-expanded with minimal platelike atelectatic changes in the lingula.. The heart size and pulmonary vascularity is normal. No gross bony abnormality seen. XR/XR chest 2V IMPRESSION: Platelike atelectasis in the lingula. No acute infiltrate.
[2023-02-17 09:50] VITALS: BP 119/83; PULSE 74; RESP 16; TEMP 36.4; O2SAT 96; BMI 26.4
[2023-02-17 10:19] VITALS: O2SAT 96
[2023-02-17] MEDS: Albuterol/Iprat 2.5/0.5MG 3 ML AMPUL.NEB INHALE (11:23)
[2023-02-17 12:04] LABS: COVID-19 Test Negative (Negative); IDNOW Serial# BCCEAD1C
--- NOTE | 2023-02-17 13:05 | ED.URI ---
HPI - URI/Sore Throat General Chief Complaint: Upper Respiratory Symptoms Stated Complaint: Wheezing/Congestion Time Seen by Provider: 02/17/23 10:11 History of Present Illness HPI Narrative: Patient complains of cough and wheezing for past week now cough is productive of sputum, she does have a history of COPD and asthma, she has been using albuterol at home with some relief of symptoms She denies fever chills she has no chest pain, no abdominal pain no nausea or vomiting no fainting or feeling faint no dysuria no leg pain no leg swelling Related Data Home Medications Medication Instructions Recorded Confirmed diazepam 10 mg tablet 10 mg PO TID PRN 07/20/20 12/18/22 fluticasone furoate 200 inhalation 07/20/20 12/18/22 mcg-vilanterol 25 mcg/dose inhalation powder ipratropium 0.5 mg-albuterol 3 mg ml inhalation Q6H 07/20/20 12/18/22 (2.5 mg base)/3 mL nebulization soln ipratropium 20 mcg-albuterol 100 inhalation 07/20/20 12/18/22 mcg/actuation mist for inhalation ipratropium bromide 0.02 % 1 inhalation Q8H 07/20/20 12/18/22 solution for inhalation Previous Rx's Medication Instructions Recorded azithromycin 250 mg tablet 250 mg PO DAILY 5 days #6 tabs 02/08/23 benzonatate 100 mg capsule 100 mg PO BID PRN cough #10 caps 02/08/23 prednisone 20 mg tablet 40 mg PO DAILY 5 days #10 tabs 02/08/23 amoxicillin 875 mg-potassium 1 tab PO Q12H 5 days #10 tabs 02/17/23 clavulanate 125 mg tablet benzonatate 200 mg capsule 200 mg PO BID PRN cough #14 caps 02/17/23 prednisone 20 mg tablet 60 mg PO DAILY 4 days #12 tabs 02/17/23 Allergies Allergy/AdvReac Type Severity Reaction Status Date / Time doxycycline Allergy Intermediate unknown Verified 02/08/23 10:08 meperidine [Demerol] Allergy Intermediate nausea and Verified 02/08/23 10:08 vomiting morphine [MORPHINE] Allergy Intermediate NAUSEA & Verified 02/08/23 10:08 VOMITING, nausea and vomiting oxycodone [OXYCODONE] Allergy Intermediate NAUSEA & Verified 02/08/23 10:08 VOMITING OxyContin Allergy Unknown nausea and Uncoded 08/20/22 13:34 vomiting PMF Past Medical History Source: nursing notes reviewed Medical History Allergic rhinitis COPD (chronic obstructive pulmonary disease) Generalized anxiety disorder Hypercholesterolemia Right rib fracture Surgical History History of ankle surgery History of pubovaginal sling History of repair of rotator cuff History of tonsillectomy History of tubal ligation Family History Family History Father CVD (cardiovascular disease) Myocardial infarction Mother Hypertension Sister No problems noted. Son No problems noted. Son No problems noted. Daughter No problems noted. Daughter No problems noted. Social History Social History Housing: House Alcohol intake: never Patient Tobacco Use Status: Former Tobacco user e-Cigarette/Vaping Use: Never Used service: No Current occupational status: retired Cognitive needs: No Hearing needs: No Vision needs: Yes Physical Exam Vital Signs: Vital Signs: Last Vital Signs Temp 97.5 F 02/17/23 09:50 Pulse 74 02/17/23 09:50 Resp 16 02/17/23 09:50 BP 119/83 02/17/23 09:50 Pulse Ox 96 02/17/23 10:19 O2 Del Method Room Air 02/17/23 10:19 BMI result Body Mass Index 26.4 General appearance no distress The eyes no redness or discharge The pharynx is clear no redness swelling or exudate Neck is supple Chest had faint wheezing bilaterally but good air entry The heart no murmur Abdomen soft nontender Extremities no edema no calf swelling or tenderness Skin no rash Course Course Course Narrative: COVID testing was negative Chest x-ray negative Patient's wheezing was treated with albuterol with relief of all shortness of breath, on rear exam wheezing he is gone and chest exam is clear to auscultation bilateral Patient is discharged with treatment for bronchitis and asthma Medications Administered Discontinued Medications Generic Name Dose Route Start Last Admin Trade Name Freq PRN Reason Stop Dose Admin Albuterol/Ipratropium 3 ml 02/17/23 11:08 02/17/23 11:23 Albuterol/Iprat 2.5/0.5mg 3 Ml Ampul.Neb INHALE 02/17/23 11:09 3 ml ONCE ONE Administration Prednisone 60 mg 02/17/23 13:15 02/17/23 13:22 Prednisone 20 Mg Tablet PO 02/17/23 13:16 60 mg ONCE ONE Administration Medical Decision Making Lab Data Labs: Lab Results 02/17/23 Range/Units 11:43 COVID-19 (DEANNA) Negative (Negative) COVID-19 Clin Com See Note Discharge Plan Discharge Clinical Impression: Bronchitis, COPD (chronic obstructive pulmonary disease) Patient Disposition: Home, Self-Care Additional Instructions: COVID test was negative Chest x-ray no pneumonia today We treated wheezing with albuterol and prednisone For the possibility that you have a bacterial bronchitis I wrote for doxycycline, but there is a good chance this is viral and it may not help and may have to run its course Follow with primary doctor Return any time for difficulty breathing any worse condition or any concerns Prescriptions: New prednisone 20 mg tablet 60 mg PO DAILY 4 Days Qty: 12 0RF benzonatate 200 mg capsule 200 mg PO BID PRN (Reason: cough) Qty: 14 0RF amoxicillin-pot clavulanate 875-125 mg tablet 1 tab PO Q12H 5 Days Qty: 10 0RF No Action azithromycin 250 mg tablet 250 mg PO DAILY 5 Days Qty: 6 0RF Rx Instructions: 500 mg day 1 250mg day 2 through 5 benzonatate 100 mg capsule 100 mg PO BID PRN (Reason: cough) Qty: 10 0RF prednisone 20 mg tablet 40 mg PO DAILY 5 Days Qty: 10 0RF Rx Instructions: Start prednisone 02/09/2023 Breo Ellipta 200-25 mcg/dose blister with device inhalation Combivent Respimat 20-100 mcg/actuation mist inhalation diazepam 10 mg tablet 10 mg PO TID PRN ipratropium bromide 0.02 % solution 1 inhalation Q8H ipratropium-albuterol 0.5 mg-3 mg(2.5 mg base)/3 mL solution for nebulization inhalation Q6H Interventions: ED Discharge Assessment Last Done: 02/17/23 13:29 Discharge Date/Time: 02/17/23 13:29
[2023-02-17] MEDS: predniSONE 20 MG TABLET 60 MG PO (13:22)
--- NOTE | 2023-02-17 13:29 | PC.NURSE ---
pt medicated per MAR.
== END 2023-02-17 13:29 | disposition home or self-care (01) ==
PROVIDERS: Physician Assistant Medical; Emergency Provider Emergency Medicine; PCP Internal Medicine
DX: J44.9 Chronic obstructive pulmonary disease, unspecified (principal); Z20.822 Contact with and (suspected) exposure to COVID-19; Z79.899 Other long term (current) drug therapy; Z87.891 Personal history of nicotine dependence
CPT/HCPCS: 71046; 87635; 99283; 99284

== ENCOUNTER 2023-03-09 09:16 | Outpatient (REF) | payer MEDICARE, SELFPAY | END 2023-03-09 09:17 | disposition home or self-care (01) | LOC: HO.HOSX 09:16 | PROVIDERS: Visit Provider Physician Assistant | DX: Z13.89 Encounter for screening for other disorder (principal) ==

== ENCOUNTER 2023-03-11 09:23 | Outpatient (REF) | payer MEDICARE, SELFPAY | END 2023-03-11 09:24 | disposition home or self-care (01) | LOC: HO.HOSX 09:23 | PROVIDERS: PCP Internal Medicine; Visit Provider Physician Assistant | DX: M22.2X2 Patellofemoral disorders, left knee (principal); M22.2X1 Patellofemoral disorders, right knee | CPT/HCPCS: 20610; 73560; 73562; 73565; 99212; J1040 ==

== ENCOUNTER 2023-04-30 10:34 | Outpatient (AMB) | payer MEDICARE, SELFPAY ==
--- NOTE | 2023-04-30 10:38 | MHC.PC.OV ---
Vital Signs 04/30/23 10:39 Height 5 ft 1 in Weight 147 lb 8 oz BMI 27.9 BP 108/64 Blood Pressure Location Rt brachial Position Sitting Pulse 61 Pulse Source Pulse Oximeter Pulse Oximetry (%) 98 Intake Visit Reasons: COPD Intake Note: pt is here for COPD Senior Controller Required: No Accompanied by: Self / Same As Patient Allergies doxycycline Allergy (Intermediate, Verified 04/30/23 10:39) unknown meperidine [Demerol] Allergy (Intermediate, Verified 04/30/23 10:39) nausea and vomiting morphine [MORPHINE] Allergy (Intermediate, Verified 04/30/23 10:39) NAUSEA & VOMITING, nausea and vomiting oxycodone [OXYCODONE] Allergy (Intermediate, Verified 04/30/23 10:39) NAUSEA & VOMITING OxyContin Allergy (Unknown, Uncoded 03/11/23 09:29) nausea and vomiting Tobacco use date assessed: 02/26/23 Fall risk assessment: No Falls in past year Last assessed Fall Risk: 04/30/23 Dental Screening Dental Screen Date: 04/30/23 Did you have a dental visit in the last 12 months?: Yes Did you have a dental problem in the last 6 months where you did not have access to dental care?: No Was dental information given to patient?: Patient has dentist HPI HPI Comments History of Present Illness Details 68-year-old female past medical history significant for impaired fasting glucose, hypercholesteremia, COPD and generalized anxiety disorder.?Patient last seen in February for hospital discharge follow-up for COPD exacerbation and pneumonia, patient presents today for follow-up visit. Patient reports overall her breathing is doing better. Patient states due to humidity still having some sob at times. Patient reports occasionally takes have a Benadryl at bedtime if she is having allergy symptoms. Recommended daily allergy pill however patient reports that she does not like the side effects of Claritin, Nreeida does not work for her and Zyrtec puts her to sleep. Recommended trying Xyzal however patient states she is unable to afford this medication. Patient also reports previously on singular but it was causing her to have leg cramping. Patient advised to follow-up with pulmonology to see the recommend restarting singular. FORMERLY [facility], [facility] Medical History Allergic rhinitis COPD (chronic obstructive pulmonary disease) Generalized anxiety disorder Hypercholesterolemia Right rib fracture Surgical History History of ankle surgery History of pubovaginal sling History of repair of rotator cuff History of tonsillectomy History of tubal ligation Family History Father CVD (cardiovascular disease) Myocardial infarction Mother Hypertension Sister No problems noted. Son No problems noted. Son No problems noted. Daughter No problems noted. Daughter No problems noted. Social History Housing: House Alcohol intake: never Patient Tobacco Use Status: Former Tobacco user e-Cigarette/Vaping Use: Never Used service: No Current occupational status: retired Cognitive needs: No Hearing needs: No Vision needs: Yes Questionnaire Thrive Questionnaire Date Thrive assessed: 02/26/23 KENZIE-7 AMB Questionnaire KENZIE-7 Date KENZIE - 7 assessed: 02/26/23 Source: Developed by Drs. Fredrick Peter, Ashwini Mckeon, Isma Santiago and colleagues, with an educational albino from [employer]. Review of Systems Const Denies chills, Denies fatigue, Denies fever(s) and Denies poor appetite Eyes Denies no additional complaints ENT Reports Normal hearing present Card Denies chest pain, Denies syncope, Denies rapid heart rate and Denies dyspnea Resp Denies cough and Denies dyspnea GI Denies change in stool character, Denies constipation, Denies diarrhea, Denies nausea and Denies vomiting Denies urinary frequency, Denies dysuria and Denies urinary urgency Neuro Reports Normal hearing present, Denies confusion and Denies syncope Psych Denies confusion Endo Denies fatigue Physical exam (Primary Care) Vital Signs: Last Vital Signs Pulse 61 04/30/23 10:39 BP 108/64 04/30/23 10:39 Pulse Ox 98 04/30/23 10:39 BMI result Body Mass Index 27.9 Tobacco/Smoking Status: Tobacco use Status Tobacco use date assessed 02/26/23 04/30/23 10:39 Patient Tobacco Use Status Former Tobacco user 04/30/23 10:39 e-Cigarette/Vaping Use Never Used 04/30/23 10:39 Thrive Assessment: Date of Thrive Assessment Date Thrive assessed 02/26/23 04/30/23 10:39 Const General: No confusion Orientation/consciousness: No confusion HENMT Head: Yes normocephalic and Yes atraumatic Eyes Conjunctivae: conjunctivae normal Chest Chest palpation & inspection: normal inspection of the chest Resp Effort & Inspection: normal respiratory effort Auscultation: clear to auscultation bilaterally, no crackles, no rhonchi and no wheezes Cardio Rate: regular rate Rhythm: regular rhythm Heart sounds: S1 normal heart sound present and S2 normal heart sound present GI Inspection: Yes normal to inspection Neuro General: No confusion Cranial nerves: Yes Normal hearing present Extrem General: No edema Assessment and Plan Assessment & Plan (1) COPD (chronic obstructive pulmonary disease): Code(s): J44.9 - Chronic obstructive pulmonary disease, unspecified Qualifiers: COPD type: emphysema Emphysema type: panlobular Qualified Code(s): J43.1 - Panlobular emphysema Plan: Continue on current inhalers. Continue to follow-up with kiln door repairer. (2) Hypercholesterolemia: Code(s): E78.00 - Pure hypercholesterolemia, unspecified Plan: Avoid fried foods, chicken skin, eggs, butter,margarine, pastries and? red meat. Coding Level of Care Code Est Pt Level 3 (23720) Diagnoses COPD (chronic obstructive pulmonary disease) J43.1 COPD type: emphysema Emphysema type: panlobular Hypercholesterolemia E78.00
[2023-04-30 10:39] VITALS: BP 108/64; PULSE 61; O2SAT 98; BMI 27.9
== END 2023-04-30 11:14 | disposition home or self-care (01) ==
PROVIDERS: PCP Internal Medicine; Visit Provider Nurse Practitioner Family
DX: J43.1 Panlobular emphysema (principal); E78.00 Pure hypercholesterolemia, unspecified
CPT/HCPCS: 99213

== ENCOUNTER 2023-06-11 07:36 | Outpatient (REF) | payer MEDICARE, SELFPAY ==
[2023-06-11 07:52] LABS: MANUAL DIFF FLAG NO
[2023-06-11 09:14] LABS: Basophils Absolute Auto 0.1 X10*3/uL (0.0-0.2); Basophils Percent Auto 1.1 % (0-2); Eosinophils Absolute Auto 0.2 X10*3/uL (0.0-0.4); Eosinophils Percent Auto 2.3 % (0-4); Hematocrit 43.2 % (37.0-47.0); Hemoglobin 14.4 g/dl (12.0-16.0); Imm Gran Abs Auto 0.01 X10*3/uL (0.00-0.03); Imm Gran Pct Auto 0.2 % (0.0-0.4); Lymphocytes Absolute Auto 2.5 X10*3/uL (1.2-4.9); Lymphocytes Percent Auto 39.4 % (20-40); Mean Corpuscular HGB Conc 33.3 g/dl (31.0-35.0); Mean Corpuscular Hemoglobin 31.2 pg (27.0-33.0); Mean Corpuscular Volume 93.5 fL (80.0-98.0); Mean Platelet Volume 9.7 fL (9.4-12.3); Monocytes Absolute Auto 0.7 X10*3/uL (0.1-1.2); Monocytes Percent Auto 10.2 % (2-11); Neutrophils Percent Auto 46.8 % (45-73); Platelet Count 287 X10*3/uL (160-400); Red Blood Count 4.62 X10*6/uL (4.20-5.50); Red Cell Distribution Width 13.8 % (11.0-16.0); White Blood Count 6.4 X10*3/uL (4.8-10.8)
[2023-06-11 09:20] LABS: Appearance Urine Clear; Color Urine Yellow; Glucose Urine UA Negative (Negative); Leukocyte Esterase Urine Moderate (2+) (Negative); Nitrite Urine Negative (Negative); Specific Gravity - Urine <= 1.005 (1.005-1.025); UMIC TRIGGER UA YES; Urine Blood Negative (Negative); Urine Ketones Negative (Negative); Urine Protein Negative (Neg-Trace)
[2023-06-11 09:25] LABS: Bacteria Urine None Seen (None Seen); Hyaline Casts Urine 0-2 /LPF (0-2); RBC Urine 0-2 /HPF (0-2)
[2023-06-11 10:02] LABS: Alanine Aminotransferase 12 U/L (0-31); Alkaline Phosphatase 80 U/L (39-117); Anion Gap 14 (12-20); Aspartate Amino Transferase 16 U/L (5-31); Bilirubin Total 0.6 mg/dL (0.0-1.0); Blood Urea Nitrogen 11 mg/dL (9-16); Carbon Dioxide 27 mmol/L (22-29); Chloride 104 mmol/L (96-108); Cholesterol 212 mg/dL (<200); Estimated Glomerular Filt Rate > 60; Glucose Random 94 mg/dL (60-115); HDL Cholesterol 65 mg/dL (>40); LDL Cholesterol Calculated 124 mg/dL (<100); Potassium 3.9 mmol/L (3.3-5.1); Sodium 141 mmol/L (135-145); Total Protein 6.6 g/dL (6.5-8.0); Triglycerides 119 mg/dL (<150)
[2023-06-11 10:03] LABS: Free T4 (Free Thyroxine) 0.93 ng/dL (0.71-1.85); Thyroid Stimulating Hormone 1.88 uIU/mL (0.32-4.0); Vitamin D 25-OH Total 39.3 ng/mL (>30)
[2023-06-11 10:28] LABS: Folate 12.2 ng/mL (> or = 4.0); Vitamin B12 616 pg/mL (200-900)
== END 2023-06-11 07:37 | disposition home or self-care (01) ==
LOC: HO.LAB 07:36
PROVIDERS: PCP Internal Medicine; Visit Provider Internal Medicine
DX: E78.00 Pure hypercholesterolemia, unspecified (principal); M81.0 Age-related osteoporosis without current pathological fracture
CPT/HCPCS: 36415; 80053; 80061; 81001; 82306; 82607; 82746; 84439; 84443; 85025

== ENCOUNTER 2023-07-02 08:19 | Outpatient (AMB) | payer MEDICARE, SELFPAY ==
[2023-07-02 08:24] VITALS: BP 130/78; PULSE 75; O2SAT 98; BMI 27.0
--- NOTE | 2023-07-02 08:24 | A.OFFPC_ITS ---
Vital Signs 07/02/23 08:24 Height 5 ft 1 in Weight 64.864 kg BMI 27.0 BP 130/78 Blood Pressure Location Lt brachial Position Sitting Pulse 75 Pulse Source Pulse Oximeter Pulse Oximetry (%) 98 Oxygen Delivery Method Room Air Intake Visit Reasons: COPD Intake Note: Patient has not taken BP med yet. Allergies doxycycline Allergy (Intermediate, Verified 07/02/23 08:24) unknown meperidine [Demerol] Allergy (Intermediate, Verified 07/02/23 08:24) nausea and vomiting morphine [MORPHINE] Allergy (Intermediate, Verified 07/02/23 08:24) NAUSEA & VOMITING, nausea and vomiting oxycodone [OXYCODONE] Allergy (Intermediate, Verified 07/02/23 08:24) NAUSEA & VOMITING OxyContin Allergy (Unknown, Uncoded 07/02/23 08:24) nausea and vomiting Medication List - Last Reconciled 07/02/23 by Daniel Lowery Po, diazepam 10 mg PO TID PRN fluticasone furoate-vilanterol 200-25 mcg/dose inhalation ipratropium bromide 1 inhalation Q8H ipratropium-albuterol 0.5 mg-3 mg(2.5 mg base)/3 mL mL inhalation Q6H ipratropium-albuterol 20-100 mcg/actuation inhalation Tobacco use date assessed: 02/26/23 Fall risk assessment: No Falls in past year Last assessed Fall Risk: 07/02/23 Dental Screening Dental Screen Date: 07/02/23 Did you have a dental visit in the last 12 months?: Yes Did you have a dental problem in the last 6 months where you did not have access to dental care?: No Was dental information given to patient?: Patient has dentist HPI COPD HPI Details 68-year-old overweight female with histo ry of COPD hypercholesterolemia impaired glucose tolerance and generalized anxiety disorder last seen in April 2023. Patient had declined colonoscopy mammograms up-to-date bone density is up-to-date. Patient follows up with Pulmonary also seen in May 2023 patient is interested in lung cancer screening program and will be getting the CT low-dose patient is on Breo 200 mcg once a day and Combivent Respimat. Patient did follow-up with nurse practitioner in April continuing with the inhalers. Patient also saw the Orthopedics February 2023 for the bilateral knee patellofemoral disorders injections given. Also was seen in January 2023 for right rotator cuff tendonitis and also an injection. Also was a follow-up from ER visits COPD exacerbation and pneumonia FORMERLY [facility] Medical History Allergic rhinitis COPD (chronic obstructive pulmonary disease) Generalized anxiety disorder Hypercholesterolemia Right rib fracture Surgical History History of ankle surgery History of pubovaginal sling History of repair of rotator cuff History of tonsillectomy History of tubal ligation Family History Father CVD (cardiovascular disease) Myocardial infarction Mother Hypertension Sister No problems noted. Son No problems noted. Son No problems noted. Daughter No problems noted. Daughter No problems noted. Social History Housing: House Alcohol intake: never Patient Tobacco Use Status: Former Tobacco user Tobacco use type: Cigarette e-Cigarette/Vaping Use: Never Used service: No Current occupational status: retired Cognitive needs: No Hearing needs: No Vision needs: Yes Questionnaire PHQ-9 Over the last 2 weeks, how often have you been bothered by any of the following problems? 1. Little interest or pleasure in doing things: not at all 2. Feeling down, depressed, or hopeless: not at all 3. Trouble falling or staying asleep, or sleeping too much: not at all 4. Feeling tired or having little energy: several days 5. Poor appetite or overeating: not at all 6. Feeling bad about yourself - or that you are a failure or have let yourself or your family down: not at all 7. Trouble concentrating on things, such as reading the newspaper or watching television: not at all 8. Moving or speaking so slowly that other people could have noticed. Or the opposite - being so fidgety or restless that you have been moving around a lot more than usual: not at all 9. Thoughts that you would be better off or of hurting yourself in some way: not at all Total score: 1 Depression Screening Interpretation: Positive Depression Screening Done: Yes Source: Developed by Chay Oliveret B.W. Mike, Isma Santiago and colleagues, with an educational albino from [employer]. Thrive Questionnaire Date Thrive assessed: 02/26/23 AUDIT C Alcohol Use Questionnaire (AUDIT-C) 1. How often do you have a drink containing alcohol?: Never 3. How often do you have six or more drinks on one occasion?: Never Total Score: 0 KENZIE-7 AMB Questionnaire KENZIE-7 Date KENZIE - 7 assessed: 02/26/23 Source: Developed by Drs. Fredrick Peter, Ashwini Mckeon, Isma Santiago and colleagues, with an educational albino from [employer]. Physical exam (Primary Care) Vital Signs: Last Vital Signs Pulse 75 07/02/23 08:24 BP 130/78 07/02/23 08:24 Pulse Ox 98 07/02/23 08:24 Oxygen Delivery Method Room Air 07/02/23 08:24 BMI result Body Mass Index 27.0 Tobacco/Smoking Status: Tobacco use Status Tobacco use date assessed 02/26/23 07/02/23 08:26 Patient Tobacco Use Status Former Tobacco user 07/02/23 08:26 Tobacco use type Cigarette 07/02/23 08:26 e-Cigarette/Vaping Use Never Used 07/02/23 08:26 PHQ-9: PHQ-9 Score PHQ-9: Total score 1 07/02/23 09:18 Depression Screening Interpretation: Positive Thrive Assessment: Date of Thrive Assessment Date Thrive assessed 02/26/23 07/02/23 08:26 Const General: alert; No acute distress Eyes Conjunctivae: conjunctivae normal Resp Auscultation: clear to auscultation bilaterally Cardio Rate: regular rate Rhythm: regular rhythm GI Inspection: Yes normal to inspection Extrem General: Yes normal to inspection and No edema Office Procedures Flu Questionnaire Does the patient have a severe egg allergy?: No Does the patient have severe life threatening allergies?: No Does the patient have a fever or illness today?: No Has the patient ever had Guillain-[place] Syndrome?: No Has the patient ever had any past reaction to a flu shot?: No Results AMB Urinalysis, Automated UA Leukoctes 125 [place]/uL Last Edit by Shira Aragon CMA on 07/02/23 09: 19 UA Nitrite Negative Last Edit by Shira Aragon CMA on 07/02/23 09:19 UA Urobilinogen 0.2 mg/dL Last Edit by Shira Aragon, SERENA on 07/02/23 0 9: 19 UA Protein 0 mg/dL Last Edit by Shira Aragon, SERENA on 07/02/23 09:19 UA pH 6.0 Last Edit by Shira Aragon, SERENA on 07/02/23 09:19 UA Blood 0 Yovanny/uL Last Edit by Shira Aragon, SERENA on 07/02/23 09:19 UA Specific [place] 1.010 Last Edit by Shira Aragon, SERENA on 07/02/23 09:19 UA Ketone Negative Last Edit by Shira Aragon, SERENA on 07/02/23 09:19 UA Bilirubin 0 mg/dL Last Edit by Shira Aragon, SERENA on 07/02/23 09:19 UA Glucose 0 mg/dL Last Edit by Shira Aragon CMA on 07/02/23 09:19 Immunizations flu vacc [id number] 6mos up(PF) 60 mcg(15 mcgx4)/0.5 mL IM syringe Performing Provider: Daniel García MD [facility] Administered by: Shira Aragon CMA on 07/02/23 09:30 Dose Route Admin Location Dispensed Lot Number Expiration Date NDC Batch Freezer Operator 0.5 mL IM Left Deltoid 0.5 mL [id number] 03/20/24 86360-476-13 [employer] VIS Given Date VIS Provided VIS Publication Date 07/02/23 Single Vaccine 21 Eligibility Eligibility Date Funding Source Not [facility] Eligible 07/02/23 Private Results Reviewed Results Reviewed: Laboratory Last Values Urine pH (Auto) 6.0 07/02/23 09:18 Specific [place] (Auto) 1.010 07/02/23 09:18 Urine Protein (Auto) 0 mg/dL 07/02/23 09:18 Glucose (UA)(Auto) 0 mg/dL 07/02/23 09:18 Urine Ketones (Auto) Negative 07/02/23 09:18 Urine Blood (Auto) 0 Yovanny/uL 07/02/23 09:18 Urine Nitrite (Auto) Negative 07/02/23 09:18 Urine Bilirubin (Auto) 0 mg/dL 07/02/23 09:18 Urine Urobilinogen (Auto) 0.2 mg/dL 07/02/23 09:18 Leukocyte Esterase (Auto) 125 [place]/uL 07/02/23 09:18 Assessment and Plan Assessment & Plan (1) COPD (chronic obstructive pulmonary disease): Code(s): J44.9 - Chronic obstructive pulmonary disease, unspecified Qualifiers: COPD type: emphysema Emphysema type: panlobular Qualified Code(s): J43.1 - Panlobular emphysema Plan: Patient follows up with Pulmonary with Valery and Chirag (2) Hypercholesterolemia: Code(s): E78.00 - Pure hypercholesterolemia, unspecified Plan: Avoid fried foods, chicken skin, eggs, butter margarine, pastries and meat. Be it pork or beef they have a lot of cholesterol LDL goal of less than 130 and triglyceride of less than 150 patient Cynthia blood work is good (3) Impaired fasting glucose: Code(s): R73.01 - Impaired fasting glucose Plan: Decrease the amount of carbohydrate intake, pasta, bread, rice and potatoes are all sugar and that is aside from all the sweet stuff, remember that fruits are good but they are Sweet also. (4) Generalized anxiety disorder: Comment: Maria Teresa Santos once a year counselling Code(s): F41.1 - Generalized anxiety disorder Plan: Continue with as a Leigh as needed (5) Overweight (BMI 25.0-29.9): Code(s): E66.3 - Overweight Plan: Diet and exercise (6) Tendinitis of right rotator cuff: Code(s): M75.81 - Other shoulder lesions, right shoulder Plan: Patient follows up with Orthopedics January 2023 had injections done (7) Patellofemoral arthralgia of both knees: Code(s): M22.2X1 - Patellofemoral disorders, right knee; M22.2X2 - Patellofemoral disorders, left knee Plan: Patient follows up with orthopedics had injections done (8) Osteoporosis: Code(s): M81.0 - Age-related osteoporosis without current pathological fracture Plan: Discussed about vitamin-D and calcium and treatments. (9) UTI (urinary tract infection): Code(s): N39.0 - Urinary tract infection, site not specified Orders: Orders Influenza [id number] Immunization Today Z23 - Encounter for immunization AMB Urinalysis Automated Today N39.0 - Urinary tract infection, site not specified Medications: New diazepam 10 mg PO TID PRN 90 tabs 0RF anxiety F41.1 - Generalized anxiety disorder sulfamethoxazole-trimethoprim 800-160 mg (Bactrim DS) 1 tab PO BID 10 tabs 0RF N39.0 - Urinary tract infection, site not specified Coding Level of Care Code Est Pt Level 4 (35473) Diagnoses 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 Emphysema type: panlobular Hypercholesterolemia E78.00 Impaired fasting glucose R73.01 Generalized anxiety disorder F41.1 Overweight (BMI 25.0-29.9) E66.3 Tendinitis of right rotator cuff M75.81 Patellofemoral arthralgia of both knees M22.2X1; M22.2X2 Osteoporosis M81.0 UTI (urinary tract infection) N39.0 Additional Codes PHQ-9 - 18034 - PHQ-9 Billing: ([id number])
== END 2023-07-02 09:45 | disposition home or self-care (01) ==
PROVIDERS: Visit Provider Internal Medicine
DX: Z23 Encounter for immunization (principal); J43.1 Panlobular emphysema; E78.00 Pure hypercholesterolemia, unspecified; N39.0 Urinary tract infection, site not specified; F41.1 Generalized anxiety disorder
CPT/HCPCS: 81003; 90471; 90686; 99214

== ENCOUNTER 2023-08-17 11:35 | Outpatient (AMB) | payer MEDICARE, SELFPAY ==
[2023-08-17 13:03] VITALS: BP 122/70; PULSE 76; TEMP 36.1; O2SAT 96; BMI 27.2
--- NOTE | 2023-08-17 13:03 | MHC.OFFWIV ---
Intake Vital Signs 08/17/23 13:03 Height 5 ft 1 in Weight 144 lb BMI 27.2 BP 122/70 Blood Pressure Location Lt brachial Position Sitting Pulse 76 Pulse Source Pulse Oximeter Temp 97.0 F Temp Source Temporal Artery Scan Pulse Oximetry (%) 96 Intake Visit Reasons: est/UPPER RESP? [id number] Intake Note: pt is here for c/o upper resp issues Patient Tobacco Use Status: Former Tobacco user Allergies doxycycline Allergy (Intermediate, Verified 08/17/23 13:04) unknown meperidine [Demerol] Allergy (Intermediate, Verified 08/17/23 13:04) nausea and vomiting morphine [MORPHINE] Allergy (Intermediate, Verified 08/17/23 13:04) NAUSEA & VOMITING, nausea and vomiting oxycodone [OXYCODONE] Allergy (Intermediate, Verified 08/17/23 13:04) NAUSEA & VOMITING sulfamethoxazole [From Bactrim] Adverse Reaction (Intermediate, Verified 08/17/23 13:04) Rash trimethoprim [From Bactrim] Adverse Reaction (Intermediate, Verified 08/17/23 13:04) Rash OxyContin Allergy (Unknown, Uncoded 07/02/23 08:24) nausea and vomiting Do you need a note to return to daycare/school/sports/work: Yes HPI HPI Comments History of Present Illness Details The patient presents to urgent care for evaluation of cough and shortness of breath nasal congestion. She feels as though she has a COPD exacerbation. Both her and her present with similar symptoms. They were outside in the cold several days ago and both came down with similar shortness of breath. She has been using her albuterol inhaler and occasional nebulizer but infrequently. Denies fever chills denies chest pain [facility] Medical History Allergic rhinitis COPD (chronic obstructive pulmonary disease) Generalized anxiety disorder Hypercholesterolemia Right rib fracture Surgical History History of ankle surgery History of pubovaginal sling History of repair of rotator cuff History of tonsillectomy History of tubal ligation Family History Father CVD (cardiovascular disease) Myocardial infarction Mother Hypertension Sister No problems noted. Son No problems noted. Son No problems noted. Daughter No problems noted. Daughter No problems noted. Housing: House Alcohol intake: never Patient Tobacco Use Status: Former Tobacco user Tobacco use type: Cigarette e-Cigarette/Vaping Use: Never Used service: No Current occupational status: retired Cognitive needs: No Hearing needs: No Vision needs: Yes Review of Systems Card Denies rapid heart rate, Denies dyspnea and Denies dyspnea on exertion Resp Denies dyspnea and Denies dyspnea on exertion GI Denies dyspepsia and Denies heartburn Musc Denies arthralgias and Denies muscle cramps Neuro Denies focal weakness and Denies Other visual disturbances Physical Exam Vital Signs: Last Vital Signs Temp 97.0 F 08/17/23 13:03 Pulse 76 08/17/23 13:03 BP 122/70 08/17/23 13:03 Pulse Ox 96 08/17/23 13:03 BMI result Body Mass Index 27.2 Const General: healthy appearing and no acute distress HEENT Mouth: Normal oral and palatal mucosa present Resp Other: Bilateral expiratory wheezes Effort & Inspection: normal respiratory effort and able to speak in complete sentences Cardio Rate: regular rate Rhythm: regular rhythm Assessment & Plan Assessment & Plan (1) COPD exacerbation: Code(s): J44.1 - Chronic obstructive pulmonary disease with (acute) exacerbation Plan Symptoms consistent with COPD exacerbation. Recommend course of oral steroids for patient. Recommend increased use of albuterol nebulizer. Patient feels strongly that she needs an antibiotic for her symptoms today. Will prescribe azithromycin. Medications: New prednisone Take 4 tabs p.o. daily x4 days 10 mg PO DAILY 16 tabs 0RF azithromycin For 250 mg dose pack: take 500 mg today (day 1), then 250 mg for 4 days (days 2-5) PO 6 tabs 0RF Coding Level of Care Code Est Pt Level 3 (32153) Diagnoses COPD exacerbation J44.1
== END 2023-08-17 13:47 | disposition home or self-care (01) ==
PROVIDERS: PCP Internal Medicine; Visit Provider Emergency Medicine
DX: J44.1 Chronic obstructive pulmonary disease with (acute) exacerbation (principal)
CPT/HCPCS: 99213

== ENCOUNTER 2023-09-08 14:26 | Outpatient (AMB) | payer MEDICARE, SELFPAY ==
--- NOTE | 2023-09-08 15:32 | MHC.OFFWIV ---
Intake Vital Signs 09/08/23 15:39 Height 5 ft 1 in Weight 142 lb 8 oz BMI 26.9 BP 128/76 Blood Pressure Location Lt brachial Position Sitting Pulse 96 Pulse Source Pulse Oximeter Temp 97.6 F Temp Source Oral Pulse Oximetry (%) 98 Oxygen Delivery Method Room Air Intake Visit Reasons: EP sinus congestion pressure [id number] Intake Note: Pt is here today c/o sinus congestion x1week Patient Tobacco Use Status: Former Tobacco user Allergies doxycycline Allergy (Intermediate, Verified 09/08/23 15:54) unknown meperidine [Demerol] Allergy (Intermediate, Verified 09/08/23 15:54) nausea and vomiting morphine [MORPHINE] Allergy (Intermediate, Verified 09/08/23 15:54) NAUSEA & VOMITING, nausea and vomiting oxycodone [OXYCODONE] Allergy (Intermediate, Verified 09/08/23 15:54) NAUSEA & VOMITING sulfamethoxazole [From Bactrim] Adverse Reaction (Intermediate, Verified 09/08/23 15:54) Rash trimethoprim [From Bactrim] Adverse Reaction (Intermediate, Verified 09/08/23 15:54) Rash OxyContin Allergy (Unknown, Uncoded 09/08/23 15:54) nausea and vomiting Medication List - Last Reconciled 09/08/23 by Kirill Modi MD diazepam 10 mg PO TID PRN fluticasone furoate-vilanterol 200-25 mcg/dose inhalation ipratropium-albuterol 0.5 mg-3 mg(2.5 mg base)/3 mL mL inhalation Q6H ipratropium-albuterol 20-100 mcg/actuation inhalation HPI EP sinus congestion pressure [id number] HPI Details Patient presents for a sick visit. Reporting symptoms of sinus congestion, sore throat and difficulty swallowing. Low-grade fever. No family member is sick. No recent travel. Patient reports symptoms of malaise and fatigue. [facility] Medical History Allergic rhinitis COPD (chronic obstructive pulmonary disease) Generalized anxiety disorder Hypercholesterolemia Right rib fracture Surgical History History of ankle surgery History of pubovaginal sling History of repair of rotator cuff History of tonsillectomy History of tubal ligation Family History Father CVD (cardiovascular disease) Myocardial infarction Mother Hypertension Sister No problems noted. Son No problems noted. Son No problems noted. Daughter No problems noted. Daughter No problems noted. Social History Housing: House Alcohol intake: never Patient Tobacco Use Status: Former Tobacco user Tobacco use type: Cigarette e-Cigarette/Vaping Use: Never Used service: No Current occupational status: retired Cognitive needs: No Hearing needs: No Vision needs: Yes Physical Exam Vital Signs: Last Vital Signs Temp 97.6 F 09/08/23 15:39 Pulse 96 09/08/23 15:39 BP 128/76 09/08/23 15:39 Pulse Ox 98 09/08/23 15:39 Oxygen Delivery Method Room Air 09/08/23 15:39 BMI result Body Mass Index 26.9 Const General: cooperative and healthy appearing Nutritional Appearance: well nourished Orientation/consciousness: patient oriented x3 Limitations: no limitations HEENT Head: Yes normal to inspection Eyes General: appearance normal, both eyes and all related structures Neck Neck: Yes normal visual inspection Chest Chest palpation & inspection: normal palpation of entire chest wall Resp Effort & Inspection: normal respiratory effort Neuro General: patient oriented x3 Assessment & Plan Assessment & Plan (1) Upper respiratory tract infection: Code(s): J06.9 - Acute upper respiratory infection, unspecified Plan: Antibiotics ordered. Increase fluid intake. Tylenol for aches and pains. If symptoms worsen, follow-up here for a recheck. Coding Level of Care Code Est Pt Level 3 (94054) Diagnoses Upper respiratory tract infection J06.9
[2023-09-08 15:39] VITALS: BP 128/76; PULSE 96; TEMP 36.4; O2SAT 98; BMI 26.9
== END 2023-09-08 16:18 | disposition home or self-care (01) ==
PROVIDERS: PCP Internal Medicine; Visit Provider Internal Medicine
DX: J06.9 Acute upper respiratory infection, unspecified (principal)
CPT/HCPCS: 99213

== ENCOUNTER 2023-10-07 08:15 | Outpatient (AMB) | payer MEDICARE, SELFPAY ==
[2023-10-07 08:23] VITALS: BP 124/78; PULSE 75; TEMP 36.4; O2SAT 97
--- NOTE | 2023-10-07 08:23 | AM.OFFWIN_ITS ---
Intake Vital Signs 10/07/23 08:23 Height 5 ft 1 in BP 124/78 Blood Pressure Location Lt brachial Position Sitting Pulse 75 Pulse Source Pulse Oximeter Temp 97.6 F Temp Source Oral Pulse Oximetry (%) 97 Oxygen Delivery Method Room Air Intake Visit Reasons: EP, sinus congestion ([phone]) Intake Note: pt is for c/o sinus, congestion since thursday Patient Tobacco Use Status: Former Tobacco user Allergies doxycycline Allergy (Intermediate, Verified 10/07/23 08:23) unknown meperidine [Demerol] Allergy (Intermediate, Verified 10/07/23 08:23) nausea and vomiting morphine [MORPHINE] Allergy (Intermediate, Verified 10/07/23 08:23) NAUSEA & VOMITING, nausea and vomiting oxycodone [OXYCODONE] Allergy (Intermediate, Verified 10/07/23 08:23) NAUSEA & VOMITING sulfamethoxazole [From Bactrim] Adverse Reaction (Intermediate, Verified 10/07/23 08:23) Rash trimethoprim [From Bactrim] Adverse Reaction (Intermediate, Verified 10/07/23 08:23) Rash OxyContin Allergy (Unknown, Uncoded 09/08/23 15:54) nausea and vomiting Do you need a note to return to daycare/school/sports/work: No HPI HPI Comments History of Present Illness Details This is a 68-year-old female with a past medical history of COPD not currently oxygen-dependent presenting for evaluation of sinus congestion that she has had for the past 4 days. Patient denies having any fevers but has had intermittent chills and right ear pain. Patient denies coughing or feeling short of breath. Patient has used steam baths only without relief of her sinus congestion. [facility] Medical History Generalized anxiety disorder Right rib fracture Hypercholesterolemia Allergic rhinitis COPD (chronic obstructive pulmonary disease) Surgical History History of ankle surgery History of pubovaginal sling History of repair of rotator cuff History of tonsillectomy History of tubal ligation Family History Father CVD (cardiovascular disease) Myocardial infarction Mother Hypertension Sister No problems noted. Son No problems noted. Son No problems noted. Daughter No problems noted. Daughter No problems noted. Social History Housing: House Alcohol intake: never Patient Tobacco Use Status: Former Tobacco user Tobacco use type: Cigarette e-Cigarette/Vaping Use: Never Used service: No Current occupational status: retired Cognitive needs: No Hearing needs: No Vision needs: Yes Review of Systems Const All systems reviewed & are unremarkable except as noted in HPI and below Reports chills (Intermittent), Denies fatigue and Denies fever(s) Eyes Reports as per HPI ENT Reports no additional complaints, Reports otalgia (right), Denies hoarseness, Reports nasal congestion and Reports sinus pressure Card Reports as per HPI and Denies dyspnea Resp Reports as per HPI, Denies cough and Denies dyspnea Endo Denies fatigue Physical Exam Vital Signs: Last Vital Signs Temp 97.6 F 10/07/23 08:23 Pulse 75 10/07/23 08:23 BP 124/78 10/07/23 08:23 Pulse Ox 97 10/07/23 08:23 Oxygen Delivery Method Room Air 10/07/23 08:23 Afebrile, 97% on room air Const General: cooperative, healthy appearing, comfortable and no acute distress Nutritional Appearance: average body habitus Orientation/consciousness: patient oriented x3 Limitations: no limitations HEENT Head: Yes normal to inspection Ears: hearing grossly normal bilaterally, external ears normal, right TM abnormal (erythema, bulging), TM normal on the left and EAC's normal General nose exam: Normal external nose present Face and sinus: Yes normal facial exam, No sinus tenderness and No Facial tenderness on exam of face and sinuses Mouth: Normal oral and palatal mucosa present Throat: Yes posterior oropharynx normal and No postnasal drainage Neck Lymphatic: no lymphadenopathy noted Resp Effort & Inspection: normal respiratory effort and no use of accessory muscles Auscultation: clear to auscultation bilaterally and diminished lung sounds bilateral Cardio Rate: regular rate Rhythm: regular rhythm Neuro General: patient oriented x3 Psych Appearance: grossly normal Mental Status: mental status grossly normal Insight: Good insight present (Psych) Judgement: Good judgement present (Psych) Assessment & Plan Assessment & Plan (1) Acute viral sinusitis: Code(s): J01.90 - Acute sinusitis, unspecified; B97.89 - Other viral agents as the cause of diseases classified elsewhere Plan: Increase fluids daily, ibuprofen as needed and nasal sinus spray daily. (2) Otitis media of right ear: Code(s): H66.91 - Otitis media, unspecified, right ear Plan: Amoxicillin t.i.d. x7 days, ibuprofen or Tylenol as needed. Medications: New amoxicillin 500 mg PO TID 21 caps 0RF Coding Level of Care Code Est Pt Level 3 (48258) Diagnoses Acute viral sinusitis J01.90; B97.89 Otitis media of right ear H66.91 Time Spent (min) 20
== END 2023-10-07 09:30 | disposition home or self-care (01) ==
PROVIDERS: PCP Internal Medicine; Visit Provider Physician Assistant
DX: J01.90 Acute sinusitis, unspecified (principal); B97.89 Other viral agents as the cause of diseases classified elsewhere; H66.91 Otitis media, unspecified, right ear
CPT/HCPCS: 99213

== ENCOUNTER 2023-11-10 09:41 | Outpatient (REF) | payer MEDICARE, SELFPAY ==
--- NOTE | ~2023-11-10 | XR_ITS ---
EXAMINATION: XR HAND, RIGHT CLINICAL INFORMATION: Pain in right hand, attention basal joint. COMPARISON: Right hand 09/16/2022. TECHNIQUE: PA, lateral, and oblique views of the right hand. FINDINGS: The bones are diffusely demineralized. Severe degenerative changes in the first carpometacarpal joint with joint space narrowing, hypertrophic change and subluxation. Narrowing of the radiocarpal space. Evaluation of the digits is limited due to overlap. Mild osteoarthritic changes in scattered IP joints. Moderate degenerative changes in the IP and MCP joints of the thumb with hypertrophic change and joint space narrowing. XR/XR hand RT min 3V IMPRESSION: 1. Severe degenerative changes first carpometacarpal joint. 2. Moderate degenerative changes IP and MCP joints of the thumb. Recommend follow-up imaging in 10-14 days if fracture is suspected.
== END 2023-11-10 09:42 | disposition home or self-care (01) ==
LOC: HO.HOSX 09:41
PROVIDERS: PCP Internal Medicine; Visit Provider Orthopaedic Surgery
DX: M18.11 Unilateral primary osteoarthritis of first carpometacarpal joint, right hand (principal)
CPT/HCPCS: 20600; 73130; 99212; J1020

== ENCOUNTER 2023-11-10 09:41 | Outpatient (AMB) | payer MEDICARE, SELFPAY ==
--- NOTE | 2023-11-10 10:22 | A.OFFVIS_ITS ---
Intake Vital Signs 11/10/23 10:23 Height 5 ft 1 in Weight 142 lb BMI 26.8 Intake Visit Reasons: O/V rt hand CMC jt s/p injecti Intake Note: Tiffanie 68 yr old female who is right hand dominant presents today for her right thumb basal joint pain s/p injection from 09/16/[address] Cisneros. States injection lasted about 6 months and would like to discuss repeat of injection vs surgical intervention. Allergies doxycycline Allergy (Intermediate, Verified 11/10/23 10:41) unknown meperidine [Demerol] Allergy (Intermediate, Verified 11/10/23 10:41) nausea and vomiting morphine [MORPHINE] Allergy (Intermediate, Verified 11/10/23 10:41) NAUSEA & VOMITING, nausea and vomiting oxycodone [OXYCODONE] Allergy (Intermediate, Verified 11/10/23 10:41) NAUSEA & VOMITING sulfamethoxazole [From Bactrim] Adverse Reaction (Intermediate, Verified 11/10/23 10:41) Rash trimethoprim [From Bactrim] Adverse Reaction (Intermediate, Verified 11/10/23 10:41) Rash OxyContin Allergy (Unknown, Uncoded 11/10/23 10:41) nausea and vomiting HPI O/V rt hand CMC jt s/p injecti HPI Details Tiffanie is a 68 year old right hand dominant woman who returns to discuss her right basal joint OA. She was last seen, and injected, on 09/16/22, which she says was helpful for ~6 months. She reports pain for 15+ years at the base of her right thumb, worse with pinching or gripping. 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 She found her duties caused her increased pain. She tries to stay active but does limit her activity when possible. She enjoys cooking, but finds this painful & difficult at times. She would like to discuss repeat injections vs surgery. She has a Hx of left CMC joint arthroplasty many years ago by Dr. Ferreira, this was after finding no relief from steroid injections. [facility] Medical History Generalized anxiety disorder Right rib fracture Hypercholesterolemia Allergic rhinitis COPD (chronic obstructive pulmonary disease) Surgical History History of pubovaginal sling History of repair of rotator cuff History of ankle surgery History of tonsillectomy History of tubal ligation Family History Father CVD (cardiovascular disease) Myocardial infarction Mother Hypertension Sister No problems noted. Son No problems noted. Son No problems noted. Daughter No problems noted. Daughter No problems noted. Social History (Updated 11/10/23 @ 10:42 by Raina [facility]) Housing: House Alcohol intake: never Patient Tobacco Use Status: Former Tobacco user Tobacco use type: Cigarette e-Cigarette/Vaping Use: Never Used service: No Current occupational status: retired Current occupation: rt hand Cognitive needs: No Hearing needs: No Vision needs: Yes Review of Systems Const All systems reviewed & are unremarkable except as noted in HPI and below Physical Exam Vital Signs: BMI result Body Mass Index 26.8 Const General: no acute distress and alert Orientation/consciousness: patient oriented x3 Neuro General: patient oriented x3 Extrem Other: Evaluation of Right Upper Extremity: The patient is alert, oriented, and in no acute distress Neuro: Median, Ulnar, Radial nerves motor and sensory intact and sensation is normal to the tips of all digits Vascular: Cap refill brisk ROM: Can bring fingers closed to a fist and back out to full extension. No locking or catching Mild tenderness over the right basal joint + shoulder sign + CMC grind Not particularly tender over the 1st dorsal compartment Not particularly tender over the MCP joint Radiographs: 3 views of the right hand were taken and viewed by me today in clinic. They show right Basal joint arthritis with joint space narrowing and early osteophyte formation. She also has some IP joint arthritis. No fractures or dislocations. Psych Appearance: grossly normal Affect: normal affect Attitude: cooperative Office Procedures Fracture Care Details: No fracture, injection Fracture Billing Code: Fracture Billing Code Assessment & Plan Assessment & Plan (1) Arthritis of carpometacarpal (CMC) joint of right thumb: Code(s): M18.11 - Unilateral primary osteoarthritis of first carpometacarpal joint, right hand Plan Assessment & Plan: 1. Right Basal joint arthritis, S/P injection Date of injections: 11/10/23, 09/16/22 I educated her about this condition I discussed operative and non-operative treatment options The patient would like to proceed with a repeat injection I discussed activity modification, she should limit or avoid any heavy pinching, gripping, or lifting activities. I discussed the use of gadgets to assist with daily activities, including in the kitchen as she likes to cook. She was fitted for a new [employer]fort Cool thumb brace to wear when symptomatic Injection #1 : The risks and benefits of a steroid injection including but not limited to risk of damage to blood vessels, nerve, tendon, infection, skin bleaching, persistent or worsening pain, and failure to improve symptoms were discussed with the patient and they wish to proceed with the steroid injection. Once consent was obtained the skin over the dorsum of the right basal joint was sterilely prepped. The joint was then injected with a combination of 1 mL of (40 mg/ml} Depo-Medrol and 1% plain Lidocaine. The patient appears to have tolerated the procedure well and with no complications. She had good early relief before leaving clinic today. She knows that they may not have another steroid injection into this joint for least 4 months. 2. Left Distal Radius fracture, intra-articular, minimally displaced DOI: 07/04/22 No complaints at this time 3. History of left Basal joint arthroplasty Performed by Dr. Ferreira several years ago, with good resolution. Scribed for Darlyn Cisneros MD by Gerald Narayan, certified medical technician, on 11/10/23 at 10:55 AM, EST. Orders: Orders XR hand RT min 3V Today M79.641 - Pain in right hand Coding Level of Care Code Est Pt Level 3 (84075) Diagnoses Arthritis of carpometacarpal (CMC) joint of right thumb M18.11 CPT Codes Fracture Care - Fracture Billing Code: Fracture Billing Code ([id number])
[2023-11-10 10:23] VITALS: BMI 26.8
== END 2023-11-10 11:32 | disposition home or self-care (01) ==
PROVIDERS: PCP Internal Medicine; Visit Provider Orthopaedic Surgery
DX: M18.11 Unilateral primary osteoarthritis of first carpometacarpal joint, right hand (principal)
CPT/HCPCS: 20600; 99213

== ENCOUNTER 2023-12-11 14:42 | Outpatient (AMB) | payer MEDICARE, SELFPAY ==
--- NOTE | 2023-12-11 14:44 | A.OFFPC_ITS ---
Vital Signs 12/11/23 14:46 Height 5 ft 1 in Weight 138 lb 8 oz BMI 26.2 BP 100/66 Blood Pressure Location Lt brachial Position Sitting Pulse 104 H Pulse Source Pulse Oximeter Pulse Oximetry (%) 95 Oxygen Delivery Method Room Air Intake Visit Reasons: COPD Intake Note: Patient is here to follow up on COPD. 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 Accompanied by: Spouse Allergies doxycycline Allergy (Intermediate, Verified 12/11/23 14:46) unknown meperidine [Demerol] Allergy (Intermediate, Verified 12/11/23 14:46) nausea and vomiting morphine [MORPHINE] Allergy (Intermediate, Verified 12/11/23 14:46) NAUSEA & VOMITING, nausea and vomiting oxycodone [OXYCODONE] Allergy (Intermediate, Verified 12/11/23 14:46) NAUSEA & VOMITING sulfamethoxazole [From Bactrim] Adverse Reaction (Intermediate, Verified 12/11/23 14:46) Rash trimethoprim [From Bactrim] Adverse Reaction (Intermediate, Verified 12/11/23 14:46) Rash OxyContin Allergy (Unknown, Uncoded 11/10/23 10:41) nausea and vomiting Medication List - Last Reconciled 12/11/23 by Daniel Lowery Po, amoxicillin-pot clavulanate 875-125 mg 1 tab PO BID azelastine (Astepro Allergy) 2 sprays intranasal BID diazepam 10 mg PO TID PRN fluticasone propion-salmeterol 250-50 mcg/dose (Wixela Inhub) 1 ea inhalation BID ipratropium-albuterol 0.5 mg-3 mg(2.5 mg base)/3 mL mL inhalation Q6H ipratropium-albuterol 20-100 mcg/actuation inhalation Tobacco use date assessed: 12/11/23 Fall risk assessment: No Falls in past year Last assessed Fall Risk: 12/11/23 Dental Screening Dental Screen Date: 12/11/23 Did you have a dental visit in the last 12 months?: Yes Did you have a dental problem in the last 6 months where you did not have access to dental care?: No Was dental information given to patient?: Patient has dentist HPI COPD HPI Details 68-year-old overweight female with COPD hypercholesterolemia impaired glucose tolerance generalized anxiety disorder coming in for follow-up last seen in June 2023. Patient has declined colonoscopy mammogram is up-to-date bone density done in January 2023 showing osteoporosis. Review of the notes has seen Orthopedics in October 2023 follow-up for right hand carpometacarpal osteoarthritis injections done August [address] Cisneros. Seen in the Urgent Center in September for sinus congestion treated with amoxicillin. August 2023 for sinus congestion again. July 2023 for COPD and was given Bactrim. Patient did see Pulmonary in May 2023 patient continues to use the Breo and Combivent ordered for CT scan by Dr. Ascencio patient also follows up with ortho for the knee pains. [facility] Medical History Generalized anxiety disorder Right rib fracture Hypercholesterolemia Allergic rhinitis COPD (chronic obstructive pulmonary disease) Surgical History History of pubovaginal sling History of repair of rotator cuff History of ankle surgery History of tonsillectomy History of tubal ligation Family History Father CVD (cardiovascular disease) Myocardial infarction Mother Hypertension Sister No problems noted. Son No problems noted. Son No problems noted. Daughter No problems noted. Daughter No problems noted. Social History Housing: House Alcohol intake: never Patient Tobacco Use Status: Former Tobacco user Tobacco use type: Cigarette e-Cigarette/Vaping Use: Never Used Second Hand Smoke Exposure: Yes service: No Current occupational status: retired Current occupation: rt hand Cognitive needs: No Hearing needs: No Vision needs: Yes Questionnaire PHQ-9 Over the last 2 weeks, how often have you been bothered by any of the following problems? 1. Little interest or pleasure in doing things: not at all 2. Feeling down, depressed, or hopeless: not at all 3. Trouble falling or staying asleep, or sleeping too much: not at all 4. Feeling tired or having little energy: not at all 5. Poor appetite or overeating: not at all 6. Feeling bad about yourself - or that you are a failure or have let yourself or your family down: not at all 7. Trouble concentrating on things, such as reading the newspaper or watching television: not at all 8. Moving or speaking so slowly that other people could have noticed. Or the opposite - being so fidgety or restless that you have been moving around a lot more than usual: not at all 9. Thoughts that you would be better off or of hurting yourself in some way: not at all Total score: 0 Depression Screening Interpretation: Negative Depression Screening Done: Yes Source: Developed by Drs. Fredrick Peter, Ashwini Mckeon, Isam Santiago and colleagues, with an educational albino from [employer]. Thrive Questionnaire Date Thrive assessed: 12/11/23 I am a: Patient What is your living situation today?: I have a steady place to live Within the past 12 months, did the food you bought not last and you didn't have the money to get more?: Never true Within the past 12 months, did you worry whether your food would run out before you got money to buy more?: Never true Do you have trouble paying for medicines?: No Do you have trouble getting transportation to medical appointments?: No Do you have trouble paying your heating and electricity bill?: No Do you have trouble taking care of your child, family member or friend?: No Do you have trouble with day-to-day activities such as bathing, preparing meals, shopping, managing finances, etc.?: No Are you currently unemployed and looking for a job?: No Are you interested in more education?: No Currently or been in a relationship where the following occur: no concerns reported THRIVE Score: 0 AUDIT C Alcohol Use Questionnaire (AUDIT-C) 1. How often do you have a drink containing alcohol?: Never Total Score: 0 KENZIE-7 AMB Questionnaire KENZIE-7 Date KENZIE - 7 assessed: 12/11/23 Feeling nervous, anxious, or on edge: 0 = Not at all Not being able to stop or control worryin = Not at all Worrying too much about different things: 0 = Not at all Trouble relaxin = Not at all Being so restless that it is hard to sit still: 0 = Not at all Becoming easily annoyed or irritable: 0 = Not at all Feeling afraid as if something awful might happen: 0 = Not at all Total KENZIE-7 score (0-4 normal; 5-9 mild; 10-14 moderate; 15-21 severe): 0 Source: Developed by Drs. Fredrick Peter, Ashwini Mckeon, Isma Santiago and colleagues, with an educational albino from [employer]. Physical exam (Primary Care) Vital Signs: Last Vital Signs Pulse 104 H 12/11/23 14:46 BP 100/66 12/11/23 14:46 Pulse Ox 95 12/11/23 14:46 Oxygen Delivery Method Room Air 12/11/23 14:46 BMI result Body Mass Index 26.2 Tobacco/Smoking Status: Tobacco use Status Tobacco use date assessed 12/11/23 12/11/23 14:48 Patient Tobacco Use Status Former Tobacco user 12/11/23 14:48 Tobacco use type Cigarette 12/11/23 14:48 e-Cigarette/Vaping Use Never Used 12/11/23 14:48 PHQ-9: PHQ-9 Score PHQ-9: Total score 0 12/11/23 14:48 Depression Screening Interpretation: Negative Thrive Assessment: Date of Thrive Assessment Date Thrive assessed 12/11/23 12/11/23 14:48 Currently or been in a relationship where the following occur: no concerns reported Const General: alert; No acute distress Eyes Conjunctivae: conjunctivae normal Resp Auscultation: clear to auscultation bilaterally Cardio Rate: regular rate Rhythm: regular rhythm GI Inspection: Yes normal to inspection Extrem General: Yes normal to inspection and No edema Assessment and Plan Assessment & Plan (1) COPD (chronic obstructive pulmonary disease): Code(s): J44.9 - Chronic obstructive pulmonary disease, unspecified Qualifiers: COPD type: emphysema Emphysema type: panlobular Qualified Code(s): J43.1 - Panlobular emphysema Plan: Patient follows up with Pulmonary on Wixela and Combivent (2) Hypercholesterolemia: Code(s): E78.00 - Pure hypercholesterolemia, unspecified Plan: Avoid fried foods, chicken skin, eggs, butter margarine, pastries and meat. Be it pork or beef they have a lot of cholesterol LDL goal of less than 130 and triglyceride of less than 150. May 2023 last blood work (3) Impaired fasting glucose: Code(s): R73.01 - Impaired fasting glucose Plan: Decrease the amount of carbohydrate intake, pasta, bread, rice and potatoes are all sugar and that is aside from all the sweet stuff, remember that fruits are good but they are Sweet also. (4) Generalized anxiety disorder: Comment: [facility] once a year counselling Code(s): F41.1 - Generalized anxiety disorder Plan: Continue with present medication diazepam as needed (5) Arthritis of carpometacarpal (CMC) joint of right thumb: Code(s): M18.11 - Unilateral primary osteoarthritis of first carpometacarpal joint, right hand Plan: Patient follows up with orthopedics and has had injection. (6) Osteoporosis: Code(s): M81.0 - Age-related osteoporosis without current pathological fracture Plan: Calcium vitamin-D discussed as important for the bones and discussion on other treatments. (7) Patellofemoral arthralgia of both knees: Code(s): M22.2X1 - Patellofemoral disorders, right knee; M22.2X2 - Patellofemoral disorders, left knee Plan: Keep active and lose the weight. (8) Sinusitis: Code(s): J32.9 - Chronic sinusitis, unspecified Medications: New amoxicillin-pot clavulanate 875-125 mg 1 tab PO BID 14 tabs 0RF J32.9 - Chronic sinusitis, unspecified azelastine (Astepro Allergy) administer into each nostril 2 sprays intranasal BID 30 mL 0RF J32.9 - Chronic sinusitis, unspecified Refilled diazepam 10 mg PO TID PRN 90 tabs 0RF anxiety F41.1 - Generalized anxiety disorder Coding Level of Care Code Est Pt Level 4 (33774) Diagnoses 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 Emphysema type: panlobular Hypercholesterolemia E78.00 Impaired fasting glucose R73.01 Generalized anxiety disorder F41.1 Arthritis of carpometacarpal (CMC) joint of right thumb M18.11 Osteoporosis M81.0 Patellofemoral arthralgia of both knees M22.2X1; M22.2X2 Sinusitis J32.9
[2023-12-11 14:46] VITALS: BP 100/66; PULSE 104; O2SAT 95; BMI 26.2
== END 2023-12-11 15:40 | disposition home or self-care (01) ==
PROVIDERS: PCP Internal Medicine; Visit Provider Internal Medicine
DX: J43.1 Panlobular emphysema (principal); E78.00 Pure hypercholesterolemia, unspecified; R73.01 Impaired fasting glucose; F41.1 Generalized anxiety disorder; M18.11 Unilateral primary osteoarthritis of first carpometacarpal joint, right hand; M81.0 Age-related osteoporosis without current pathological fracture; M22.2X1 Patellofemoral disorders, right knee; M22.2X2 Patellofemoral disorders, left knee; J32.9 Chronic sinusitis, unspecified
CPT/HCPCS: 99214

== ENCOUNTER 2024-04-13 10:03 | Outpatient (AMB) | payer MEDICARE, SELFPAY ==
[2024-04-13 10:08] VITALS: BP 130/78; PULSE 69; O2SAT 97; BMI 26.6
--- NOTE | 2024-04-13 10:08 | MHC.PC.OV ---
Vital Signs 04/13/24 10:08 Height 5 ft 1 in Weight 141 lb BMI 26.6 BP 130/78 Blood Pressure Location Lt brachial Position Sitting Pulse 69 Pulse Source Pulse Oximeter Pulse Oximetry (%) 97 Oxygen Delivery Method Room Air Intake Visit Reasons: COPD Allergies doxycycline Allergy (Intermediate, Verified 04/13/24 10:09) unknown meperidine [Demerol] Allergy (Intermediate, Verified 04/13/24 10:09) nausea and vomiting morphine [MORPHINE] Allergy (Intermediate, Verified 04/13/24 10:09) NAUSEA & VOMITING, nausea and vomiting oxycodone [OXYCODONE] Allergy (Intermediate, Verified 04/13/24 10:09) NAUSEA & VOMITING sulfamethoxazole [From Bactrim] Adverse Reaction (Intermediate, Verified 04/13/24 10:09) Rash trimethoprim [From Bactrim] Adverse Reaction (Intermediate, Verified 04/13/24 10:09) Rash OxyContin Allergy (Unknown, Uncoded 04/13/24 10:09) nausea and vomiting Medication List - Last Reconciled 04/13/24 by Daniel García MD diazepam 10 mg PO TID PRN fluticasone propion-salmeterol 250-50 mcg/dose (Wixela Inhub) 1 ea inhalation BID ipratropium-albuterol 0.5 mg-3 mg(2.5 mg base)/3 mL mL inhalation Q6H ipratropium-albuterol 20-100 mcg/actuation inhalation ipratropium-albuterol 20-100 mcg/actuation (Combivent Respimat) 1 puff inhalation Q6H loratadine (Claritin) 10 mg PO DAILY tobramycin 0.3% 1 appl ophthalmic (eye) 6XD 7 days Tobacco use date assessed: 12/11/23 Fall risk assessment: No Falls in past year Last assessed Fall Risk: 04/13/24 Dental Screening Dental Screen Date: 12/11/23 HPI COPD HPI Details 69-year-old overweight female with a history of COPD hypercholesterolemia impaired glucose tolerance generalized anxiety disorder coming in for follow-up. Last seen in November 2023. Patient has declined colonoscopy mammogram is due bone density is up-to-date. Patient had a vascular workup by Dr. Gamez in January 2024 showing reflux in the femoral vein with negative DVT. In February had x-ray of the knee showing bilateral degenerative changes with small left knee effusion . Procedure done last week [facility] Medical History Generalized anxiety disorder Right rib fracture Hypercholesterolemia Allergic rhinitis COPD (chronic obstructive pulmonary disease) Surgical History History of pubovaginal sling History of repair of rotator cuff History of ankle surgery History of tonsillectomy History of tubal ligation Family History Father CVD (cardiovascular disease) Myocardial infarction Mother Hypertension Sister No problems noted. Son No problems noted. Son No problems noted. Daughter No problems noted. Daughter No problems noted. Social History Housing: House Alcohol intake: never Patient Tobacco Use Status: Former Tobacco user Tobacco use type: Cigarette e-Cigarette/Vaping Use: Never Used Second Hand Smoke Exposure: Yes service: No Current occupational status: retired Current occupation: rt hand Cognitive needs: No Hearing needs: No Vision needs: Yes Questionnaire PHQ-9 Over the last 2 weeks, how often have you been bothered by any of the following problems? 1. Little interest or pleasure in doing things: not at all 2. Feeling down, depressed, or hopeless: not at all 3. Trouble falling or staying asleep, or sleeping too much: not at all 4. Feeling tired or having little energy: not at all 5. Poor appetite or overeating: not at all 6. Feeling bad about yourself - or that you are a failure or have let yourself or your family down: not at all 7. Trouble concentrating on things, such as reading the newspaper or watching television: not at all 8. Moving or speaking so slowly that other people could have noticed. Or the opposite - being so fidgety or restless that you have been moving around a lot more than usual: not at all 9. Thoughts that you would be better off or of hurting yourself in some way: not at all Total score: 0 Depression Screening Interpretation: Negative Depression Screening Done: Yes Source: Developed by Drs. Fredrick L. RomeAshwini mendoza Kurt Kroenke and colleagues, with an educational albino from [employer]. Thrive Questionnaire Date Thrive assessed: 12/11/23 AUDIT C Alcohol Use Questionnaire (AUDIT-C) 1. How often do you have a drink containing alcohol?: Never Total Score: 0 KENZIE-7 AMB Questionnaire KENZIE-7 Date KENZIE - 7 assessed: 12/11/23 Source: Developed by Ashwini Oliver Kurt Kroenke and colleagues, with an educational albino from [employer]. Physical exam (Primary Care) Vital Signs: Last Vital Signs Pulse 69 04/13/24 10:08 BP 130/78 04/13/24 10:08 Pulse Ox 97 04/13/24 10:08 Oxygen Delivery Method Room Air 04/13/24 10:08 BMI result Body Mass Index 26.6 Tobacco/Smoking Status: Tobacco use Status Tobacco use date assessed 12/11/23 04/13/24 10:09 Patient Tobacco Use Status Former Tobacco user 04/13/24 10:09 Tobacco use type Cigarette 04/13/24 10:09 e-Cigarette/Vaping Use Never Used 04/13/24 10:09 PHQ-9: PHQ-9 Score PHQ-9: Total score 0 04/13/24 10:09 Depression Screening Interpretation: Negative Thrive Assessment: Date of Thrive Assessment Date Thrive assessed 12/11/23 04/13/24 10:09 Const General: alert; No acute distress Eyes Conjunctivae: conjunctivae normal Resp Auscultation: clear to auscultation bilaterally Cardio Rate: regular rate Rhythm: regular rhythm GI Inspection: Yes normal to inspection Extrem General: Yes normal to inspection and No edema Assessment and Plan Assessment & Plan (1) COPD (chronic obstructive pulmonary disease): Code(s): J44.9 - Chronic obstructive pulmonary disease, unspecified Qualifiers: COPD type: emphysema Emphysema type: panlobular Qualified Code(s): J43.1 - Panlobular emphysema Plan: Continue with Combivent inhaler and Wixela. Reminded about rinsing mouth after using it (2) Hypercholesterolemia: Code(s): E78.00 - Pure hypercholesterolemia, unspecified Plan: Avoid fried foods, chicken skin, eggs, butter margarine, pastries and meat. Be it pork or beef they have a lot of cholesterol LDL goal of less than 130 and triglyceride of less than 150 will need blood work. (3) Impaired fasting glucose: Code(s): R73.01 - Impaired fasting glucose Plan: Decrease the amount of carbohydrate intake, pasta, bread, rice and potatoes are all sugar and that is aside from all the sweet stuff, remember that fruits are good but they are Sweet also. (4) Generalized anxiety disorder: Comment: [facility] once a year counselling Code(s): F41.1 - Generalized anxiety disorder Plan: Continue with counseling and therapy (5) Breast cancer screening by mammogram: Code(s): Z. - Encounter for screening mammogram for malignant neoplasm of breast Plan: Patient is reminded about mammogram but declined (6) Chalazion left eye, unspecified eyelid: Code(s): H00.16 - Chalazion left eye, unspecified eyelid Plan: eye ointment sent Orders: Orders Complete Blood Count Auto Diff Today E78.00 - Pure hypercholesterolemia, unspecified Comprehensive Met. Panel Today E78.00 - Pure hypercholesterolemia, unspecified Lipid Panel Today E78.00 - Pure hypercholesterolemia, unspecified Free T4 (Free Thyroxine) Today E78.00 - Pure hypercholesterolemia, unspecified Thyroid Stimulating Hormone Today E78.00 - Pure hypercholesterolemia, unspecified Vitamin B12 and Folate Today E78.00 - Pure hypercholesterolemia, unspecified Vitamin D 25-OH Total Today E78.00 - Pure hypercholesterolemia, unspecified Hemoglobin A1c Today R73.01 - Impaired fasting glucose Medications: New tobramycin 0.3% space evenly during waking hours 1 appl ophthalmic (eye) 6XD 7 days 3.5 grams 0RF H00.16 - Chalazion left eye, unspecified eyelid tobramycin 0.3% space evenly during waking hours 1 appl ophthalmic (eye) 6XD 7 days 3.5 grams 0RF H00.16 - Chalazion left eye, unspecified eyelid Coding Level of Care Code Est Pt Level 4 (64969) Diagnoses 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 Emphysema type: panlobular Hypercholesterolemia E78.00 Impaired fasting glucose R73.01 Generalized anxiety disorder F41.1 Breast cancer screening by mammogram Z. Chalazion left eye, unspecified eyelid H00.16
== END 2024-04-13 11:02 | disposition home or self-care (01) ==
PROVIDERS: PCP Internal Medicine; Visit Provider Internal Medicine
DX: J43.1 Panlobular emphysema (principal); E78.00 Pure hypercholesterolemia, unspecified; R73.01 Impaired fasting glucose; F41.1 Generalized anxiety disorder; Z12.31 Encounter for screening mammogram for malignant neoplasm of breast; H00.16 Chalazion left eye, unspecified eyelid
CPT/HCPCS: 99214

== ENCOUNTER 2024-06-21 08:50 | Outpatient (AMB) | payer MEDICARE, SELFPAY ==
--- NOTE | 2024-06-21 09:06 | AM.OFFVISNUR ---
Intake Visit Reasons: Flu Shot Allergies doxycycline Allergy (Intermediate, Verified 04/13/24 10:09) unknown meperidine [Demerol] Allergy (Intermediate, Verified 04/13/24 10:09) nausea and vomiting morphine [MORPHINE] Allergy (Intermediate, Verified 04/13/24 10:09) NAUSEA & VOMITING, nausea and vomiting oxycodone [OXYCODONE] Allergy (Intermediate, Verified 04/13/24 10:09) NAUSEA & VOMITING sulfamethoxazole [From Bactrim] Adverse Reaction (Intermediate, Verified 04/13/24 10:09) Rash trimethoprim [From Bactrim] Adverse Reaction (Intermediate, Verified 04/13/24 10:09) Rash OxyContin Allergy (Unknown, Uncoded 04/13/24 10:09) nausea and vomiting Office Procedures Flu Questionnaire Does the patient have a severe egg allergy?: No Does the patient have severe life threatening allergies?: No Does the patient have a fever or illness today?: No Has the patient ever had Guillain-[place] Syndrome?: No Has the patient ever had any past reaction to a flu shot?: No Assessment & Plan Assessment & Plan Orders: Orders Influenza [id number] Immunization Today Z23 - Encounter for immunization Medications: New Fluarix Triv [id number] (PF) (flu vacc [id number] 6mos up(PF)) 0.5 mL IM ONCE 0.5 mL 0RF NS Z23 - Encounter for immunization
== END 2024-06-21 09:10 | disposition home or self-care (01) ==
PROVIDERS: PCP Internal Medicine; Visit Provider Internal Medicine
DX: Z23 Encounter for immunization (principal)

== ENCOUNTER → 2024-06-21 08:50 | Outpatient (BNVA) | payer MEDICARE, SELFPAY | PROVIDERS: PCP Internal Medicine; Visit Provider Internal Medicine | DX: Z23 Encounter for immunization (principal) | CPT/HCPCS: 90471; 90656 ==

== ENCOUNTER 2024-08-22 08:00 | Outpatient (REF) | payer MEDICARE, SELFPAY ==
[2024-08-22 08:15] LABS: MANUAL DIFF FLAG NO
[2024-08-22 08:26] LABS: Basophils Absolute Auto 0.1 X10*3/uL (0.0-0.2); Basophils Percent Auto 0.8 % (0-2); Eosinophils Absolute Auto 0.2 X10*3/uL (0.0-0.4); Eosinophils Percent Auto 3.3 % (0-4); Hematocrit 43.9 % (37.0-47.0); Hemoglobin 14.3 g/dl (12.0-16.0); Imm Gran Abs Auto 0.02 X10*3/uL (0.00-0.03); Imm Gran Pct Auto 0.3 % (0.0-0.4); Lymphocytes Absolute Auto 3.1 X10*3/uL (1.2-4.9); Lymphocytes Percent Auto 44.1 % (20-40); Mean Corpuscular HGB Conc 32.6 g/dl (31.0-35.0); Mean Corpuscular Volume 92.2 fL (80.0-98.0); Mean Platelet Volume 8.9 fL (9.4-12.3); Monocytes Absolute Auto 0.8 X10*3/uL (0.1-1.2); Monocytes Percent Auto 11.5 % (2-11); Neutrophils Absolute Auto 2.8 x10*3/uL (2.0-8.3); Platelet Count 255 X10*3/uL (160-400); Red Blood Count 4.76 X10*6/uL (4.20-5.50); Red Cell Distribution Width 14.4 % (11.0-16.0); White Blood Count 7.1 X10*3/uL (4.8-10.8)
[2024-08-22 08:49] LABS: Estimated Average Glucose 108 mg/dL; Hemoglobin A1C 131.8846 umol/L; Hemoglobin A1c % 5.4 % (<6.0); Total Hemoglobin (HGBA1C) 3687.9508 umol/L
[2024-08-22 09:01] LABS: Alanine Aminotransferase 19 U/L (0-31); Albumin Level 4.1 g/dL (3.5-5.0); Alkaline Phosphatase 83 U/L (39-117); Anion Gap 12 (12-20); Aspartate Amino Transferase 27 U/L (5-31); Bilirubin Total 0.4 mg/dL (0.0-1.0); Blood Urea Nitrogen 15 mg/dL (9-16); Calcium 9.7 mg/dL (8.4-10.2); Carbon Dioxide 28 mmol/L (22-29); Chloride 105 mmol/L (96-108); Cholesterol 228 mg/dL (<200); Estimated Glomerular Filt Rate > 60; Glucose Random 105 mg/dL (60-115); HDL Cholesterol 74 mg/dL (>40); LDL Cholesterol Calculated 123 mg/dL (<100); Potassium 4.3 mmol/L (3.3-5.1); Sodium 141 mmol/L (135-145); Total Protein 6.6 g/dL (6.5-8.0); Triglycerides 157 mg/dL (<150)
[2024-08-22 09:20] LABS: Free T4 (Free Thyroxine) 0.94 ng/dL (0.71-1.85); Thyroid Stimulating Hormone 2.89 uIU/mL (0.32-4.0); Vitamin D 25-OH Total 38.3 ng/mL (>30)
[2024-08-22 09:30] LABS: Folate 13.3 ng/mL (> or = 4.0); Vitamin B12 565 pg/mL (200-900)
== END 2024-08-22 08:01 | disposition home or self-care (01) ==
LOC: HO.LAB 08:00
PROVIDERS: PCP Internal Medicine; Visit Provider Internal Medicine
DX: E78.00 Pure hypercholesterolemia, unspecified (principal); R73.01 Impaired fasting glucose
CPT/HCPCS: 36415; 80053; 80061; 82306; 82607; 82746; 83036; 84439; 84443; 85025

== ENCOUNTER 2024-08-24 10:02 | Outpatient (AMB) | payer MEDICARE, SELFPAY ==
[2024-08-24 10:07] VITALS: BP 112/68; PULSE 62; O2SAT 97; BMI 28.7
--- NOTE | 2024-08-24 10:07 | A.OFFPC_ITS ---
Vital Signs 08/24/24 10:07 Height 5 ft 1 in Weight 152 lb BMI 28.7 BP 112/68 Blood Pressure Location Lt brachial Position Sitting Pulse 62 Pulse Source Pulse Oximeter Pulse Oximetry (%) 97 Oxygen Delivery Method Room Air Intake Visit Reasons: Peripheral vascular disease Allergies doxycycline Allergy (Intermediate, Verified 08/24/24 10:07) unknown meperidine [Demerol] Allergy (Intermediate, Verified 08/24/24 10:07) nausea and vomiting morphine [MORPHINE] Allergy (Intermediate, Verified 08/24/24 10:07) NAUSEA & VOMITING, nausea and vomiting oxycodone [OXYCODONE] Allergy (Intermediate, Verified 08/24/24 10:07) NAUSEA & VOMITING sulfamethoxazole [From Bactrim] Adverse Reaction (Intermediate, Verified 08/24/24 10:07) Rash trimethoprim [From Bactrim] Adverse Reaction (Intermediate, Verified 08/24/24 10:07) Rash OxyContin Allergy (Unknown, Uncoded 08/24/24 10:07) nausea and vomiting Medication List - Last Reconciled 08/24/24 by Daniel García MD ascorbate calcium (vitamin C) 500 mg PO DAILY cholecalciferol (vitamin D3) 25 mcg PO DAILY cyanocobalamin (vitamin B-12) 1,000 mcg PO DAILY diazepam 10 mg PO TID PRN fluticasone propion-salmeterol 250-50 mcg/dose (Wixela Inhub) 1 ea inhalation BID ipratropium-albuterol 0.5 mg-3 mg(2.5 mg base)/3 mL mL inhalation Q6H ipratropium-albuterol 20-100 mcg/actuation inhalation ipratropium-albuterol 20-100 mcg/actuation (Combivent Respimat) 1 puff inhalation Q6H loratadine (Claritin) 10 mg PO DAILY magnesium 250 mg PO DAILY tobramycin 0.3% 1 appl ophthalmic (eye) 6XD 7 days Tobacco use date assessed: 08/24/24 Fall risk assessment: No Falls in past year Last assessed Fall Risk: 08/24/24 Dental Screening Dental Screen Date: 08/24/24 Did you have a dental visit in the last 12 months?: Yes Did you have a dental problem in the last 6 months where you did not have access to dental care?: No Was dental information given to patient?: Patient has dentist HPI Peripheral vascular disease HPI Details The patient is a 69-year-old female presenting for a follow-up of her chronic conditions, specifically COPD, hypercholesterolemia, impaired glucose tolerance, generalized anxiety disorder, osteoporosis, peripheral vascular disease, and management of bilateral arthritic thumbs. She reports an 11-pound weight gain, attributed partly to reduced mobility due to sciatica. She has noted an elevated fasting blood sugar although her hemoglobin A1c remains within normal limits. The patient declined both a colonoscopy and mammogram. She had a recent bone density test in January 2023, revealing osteoporosis with a T-score of negative 2.6, specifically affecting the hip. The patient also experienced bilateral arthritic pain in her thumbs, with notable interventions including a left basal joint injection and considerations for right thumb surgery scheduled for October 26. A recent ultrasound of the lower extremities showed no evidence of deep vein thrombosis or significant reflux in saini veins but did reveal occlusion and reflux in certain tributaries. - Reports having a sedentary lifestyle d ue to sciatic nerve pain, influencing her weight gain and reduced mobility. - Takes care of her health by managing h er medications, including the use of vitamin supplements. - Son resides with her occasionally, inf luencing dietary choices, which currently includes increased intake of less healthy foods. - Prefers to manage anxiety without the involvement of therapy or psychiatric consultations. - Musculoskeletal: Reports increased use of Comvivent inhaler this month. - Gastrointestinal: Denies recent issues with bowel movements. - Genitourinary: Occasionally wakes up a t night to urinate, varies between 0 to 2 times. - Respiratory: Reports regular use of Vi xella inhaler and Dooneb nebulizer as needed. [facility] Medical History Generalized anxiety disorder Right rib fracture Hypercholesterolemia Allergic rhinitis COPD (chronic obstructive pulmonary disease) Surgical History History of pubovaginal sling History of repair of rotator cuff History of ankle surgery History of tonsillectomy History of tubal ligation Family History Father CVD (cardiovascular disease) Myocardial infarction Mother Hypertension Sister No problems noted. Son No problems noted. Son No problems noted. Daughter No problems noted. Daughter No problems noted. Social History Housing: House Alcohol intake: never Patient Tobacco Use Status: Former Tobacco user Tobacco use type: Cigarette e-Cigarette/Vaping Use: Never Used Second Hand Smoke Exposure: Yes service: No Current occupational status: retired Current occupation: rt hand Cognitive needs: No Hearing needs: No Vision needs: Yes Questionnaire PHQ-9 Over the last 2 weeks, how often have you been bothered by any of the following problems? 1. Little interest or pleasure in doing things: not at all 2. Feeling down, depressed, or hopeless: not at all 3. Trouble falling or staying asleep, or sleeping too much: not at all 4. Feeling tired or having little energy: not at all 5. Poor appetite or overeating: not at all 6. Feeling bad about yourself - or that you are a failure or have let yourself or your family down: not at all 7. Trouble concentrating on things, such as reading the newspaper or watching television: not at all 8. Moving or speaking so slowly that other people could have noticed. Or the opposite - being so fidgety or restless that you have been moving around a lot more than usual: not at all 9. Thoughts that you would be better off or of hurting yourself in some way: not at all Total score: 0 Depression Screening Interpretation: Negative Depression Screening Done: Yes Source: Developed by Drs. Fredrick Peter, Ashwini Mckeon, Isma Santiago and colleagues, with an educational albino from [employer]. Thrive Questionnaire Date Thrive assessed: 08/24/24 I am a: Patient What is your living situation today?: I have a steady place to live Within the past 12 months, did the food you bought not last and you didn't have the money to get more?: Never true Within the past 12 months, did you worry whether your food would run out before you got money to buy more?: Never true Do you have trouble paying for medicines?: No Do you have trouble getting transportation to medical appointments?: No Do you have trouble paying your heating and electricity bill?: No Do you have trouble taking care of your child, family member or friend?: No Do you have trouble with day-to-day activities such as bathing, preparing meals, shopping, managing finances, etc.?: No Are you currently unemployed and looking for a job?: No Are you interested in more education?: No Currently or been in a relationship where the following occur: No concerns reported THRIVE Score: 0 AUDIT C Alcohol Use Questionnaire (AUDIT-C) 1. How often do you have a drink containing alcohol?: Never Total Score: 0 KENZIE-7 AMB Questionnaire KENZIE-7 Date KENZIE - 7 assessed: 08/24/24 Feeling nervous, anxious, or on edge: 0 = Not at all Not being able to stop or control worryin = Not at all Worrying too much about different things: 0 = Not at all Trouble relaxin = Not at all Being so restless that it is hard to sit still: 0 = Not at all Becoming easily annoyed or irritable: 0 = Not at all Feeling afraid as if something awful might happen: 0 = Not at all Total KENZIE-7 score (0-4 normal; 5-9 mild; 10-14 moderate; 15-21 severe): 0 Source: Developed by Drs. Fredrick Peter, Ashwini Mckeon, Isma Santiago and colleagues, with an educational albino from [employer]. Physical exam (Primary Care) Vital Signs: Last Vital Signs Pulse 62 08/24/24 10:07 BP 112/68 08/24/24 10:07 Pulse Ox 97 08/24/24 10:07 Oxygen Delivery Method Room Air 08/24/24 10:07 BMI result Body Mass Index 28.7 Tobacco/Smoking Status: Tobacco use Status Tobacco use date assessed 08/24/24 08/24/24 10:08 Patient Tobacco Use Status Former Tobacco user 08/24/24 10:08 Tobacco use type Cigarette 08/24/24 10:08 e-Cigarette/Vaping Use Never Used 08/24/24 10:08 PHQ-9: PHQ-9 Score PHQ-9: Total score 0 08/24/24 10:44 Depression Screening Interpretation: Negative Thrive Assessment: Date of Thrive Assessment Date Thrive assessed 08/24/24 08/24/24 10:08 Currently or been in a relationship where the following occur: No concerns reported Coding Level of Care Code Est Pt Level 4 (65626) Diagnoses 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 Emphysema type: panlobular Hypercholesterolemia E78.00 Impaired fasting glucose R73.01 Overweight (BMI 25.0-29.9) E66.3 Generalized anxiety disorder F41.1 Peripheral vascular disease I73.9 Assessment & Plan Assessment & Plan (1) COPD (chronic obstructive pulmonary disease): Code(s): J44.9 - Chronic obstructive pulmonary disease, unspecified Category: Medical Qualifiers: COPD type: emphysema Emphysema type: panlobular Qualified Code(s): J43.1 - Panlobular emphysema Plan: Continue with the inhalers on Wixela and Combivent (2) Hypercholesterolemia: Code(s): E78.00 - Pure hypercholesterolemia, unspecified Category: Medical Plan: Avoid fried foods, chicken skin, eggs, butter margarine, pastries and meat. Be it pork or beef they have a lot of cholesterol LDL goal of less than 130 and triglyceride of less than 150 (3) Impaired fasting glucose: Code(s): R73.01 - Impaired fasting glucose Category: Medical Plan: Decrease the amount of carbohydrate intake, pasta, bread, rice and potatoes are all sugar and that is aside from all the sweet stuff, remember that fruits are good but they are Sweet also. (4) Overweight (BMI 25.0-29.9): Code(s): E66.3 - Overweight Category: Medical Plan: Diet and exercise (5) Generalized anxiety disorder: Comment: Maria Teresa Santos once a year counselling Code(s): F41.1 - Generalized anxiety disorder Category: Medical Plan: Continue with counseling and therapy (6) Peripheral vascular disease: Comment: April 2024 GSV left leg occluded proximal calf and proximal thigh to mid thigh, AAA GSV proximal thigh to mid thigh, reflux posterior proximal calf saphenous tributary Code(s): I73.9 - Peripheral vascular disease, unspecified Category: Medical Plan: When sitting down elevate the legs, exercise, and support stockings Plan - COPD: Continue current inhaler therapy and emphasize cleaning techniques post- use. - Hypercholesterolemia: Maintain lifestyle modifications with routine monitoring of lipid profile. - Impaired Glucose Tolerance: Reinforce dietary modifications to reduce sugar intake and monitor fasting glucose levels periodically. - Generalized Anxiety Disorder: Continue use of diazepam as needed, with provision for a medication refill. - Osteoporosis: Continue vitamin D supplementation, monitor bone health via regular bone density evaluations. - Peripheral Vascular Disease: Monitor for any new symptoms and address within regular follow-up appointments. - Bilateral Arthritic Thumb: Proceed with planned surgery for the right thumb on October 26. - Sciatica: Encourage light activities as tolerated by the patient to manage weight gain and instigate discussion on possible interventions for sciatic nerve pain management. During the consultation, I reviewed the patient's recent laboratory and ultrasound results, clarifying her elevated fasting blood sugar does not currently indicate diabetes but requires attention to diet. We discussed her bone density test results, indicating osteoporosis predominantly in her hip. I addressed her concerns regarding anxiety medication availability and finalized a refill of diazepam. The patient is scheduled for right thumb surgery and was counseled on her current medication regimen and the importance of continuing her vitamin D and other supplements. Preventative measures were reinforced, including flu vaccination adherence despite patient apprehensions regarding other vaccines due to past reactions. - Maintain dietary adjustments targeting reduced sugar and fat intake. - Continue prescribed medications, including inhalers, with proper usage. - Schedule and attend right thumb surgery on October 26. - Engage in physical activities as tolerated to manage weight and alleviate sciatica. - Follow up in six months for routine evaluation and additional laboratory testing if needed. - Report any new symptoms or medication side effects promptly. Medications: Refilled diazepam 10 mg PO TID PRN 90 tabs 0RF anxiety F41.1 - Generalized anxiety disorder
--- OUTSIDE RECORDS SUMMARY | 2024-08-30 17:25 | XMS_ITS | Continuity of Care Document ---
Author Organization [facility] Address [address] [place] [address] Phone Care Team Providers Care Lining Presser Name Role Phone Franco ARNOLD, RVT, LARRY, [...] Diagnoses Date Provider Providers Copied on Encounter [facility] Veronica GUZMAN, [address] [place] [address] [address], [id number], [place] tel:[phone] [facility] Encounter for cosmetic surgery 4 Franco ARNOLD RVT, RPVI Robert. [address] [place] [address], [facility] [place] [id number], [place]. tel:[phone] Referring Provider: Daniel García MD, [address] [place] [address] [address] [facility], [place], [address]. tel:[phone] Office/Outpt E&M Established 15 Mins- [place] & [place] [facility] MD GUZMAN, [address] [place] [address] Dr [address]ata [address]ael [place], [id number], [place] tel:[phone] R [facility] Venous insufficienc y (chronic) (peripheral) 4 Franco ARNOLD RVT, RPVI Robert. [address] [place] [address], [facility] [place] [place], [id number], [place]. tel:[phone] [facility] Veronica ARNOLD [facility], [address] [place] [address] Dr Plata [address]Suite Abimael Ni [place], [id number], [place] tel:[phone] R [facility] Encounter for follow-up examination after completed treatment for conditions other than malignant nePain in left leg 4 Franco ARNOLD RVT, RPVI Robert. [address] [place] [address] [place], [id number], [place]. tel:[phone] Referring Provider: Fredrick Gamez MD, RVT, RPVI, [address] [place] [address], [id number]. tel:[phone] [facility] MD GUZMAN, [address] [place] [address] Dr [address]ata [address]Abimael [place], [id number], [place] tel:[phone] [facility] - [place] [facility] [place] Encounter for follow-up examination after completed treatment for conditions other than malignant neVaricose veins of left lower extremity with pain 4 Franco ARNOLD RVT, RPVI Robert. [address] [facility], Suite [facility], [place], [place], [id number], [place]. tel:[phone] Referring Provider: Fredrick Gamez MD, MARNIE, LARRY, [address] [place] [address], [place], [address]. tel:[phone] [facility], [address] [place] [address] [address]Abimael [place], [id number], [place] tel:[phone] [facility] - [facility] Encounter for follow-up examination after completed treatment for conditions other than malignant neoplasmPain in left leg 4 Franco ARNOLD RVT, RPVI Robert. [address] [place] [address], [place] [address], [place], [place], [id number], [place]. tel:[phone] Referring Provider: Daniel García MD, [address] [place] [address] Dr [address] [facility], [place], [address]. tel:[phone] [facility], [address] [place] [address] [address]Ab[place]el [place], [id number], [place] tel:[phone] [facility] - [facility] Varicose veins of left lower extremity with other complication s 4 Mathew Wick. [facility], Suite [facility], [place], [place], [id number], [place]. tel:[phone] Referring Provider: Shamika Carmona NP, [address] [place] [address], [id number]. tel:[phone] [facility], [address] [place] [address] [address]ael [place], [id number], [place] tel:[phone] CVR - [facility] Varicose veins of left lower extremity with other complication s 4 Franco ARNOLD RVT, RPVI Robert. [address] [place] [address], [place], [place], [id number], [place]. tel:[phone] Offic/outpt E&m Estab 5 Min Trial- Telemedicine CT & [place] [facility], [address] [place] [address] Dr [address]ata [address] 1000[place]imael [place], [id number], [place] tel:[phone] [facility] [place] [facility] [place] Cramp and spasmVenous insufficienc y (chronic) (peripheral) Pruritus, unspecified 4 Mallika Mercedes. [address] [place] [address], [place], [place], [id number], [place]. tel:[phone] [facility], [address] [place] [address] Dr Plata 1000[facility] [address], [id number], [place] tel:[phone] [facility] [place] No Information 4 Franco ARNOLD RVT, LARRY [place]. [address] [place] [address], [facility] [place], [place], [id number], [place]. tel:[phone] Office/Oupt E&M New Pt 45 Mins- [facility] & [place] [facility], [address] [place] [address] Dr [address]ata [address] 1000[place]imael [place], [id number], [place] tel:[phone] [facility] - [place] Varicose veins of bilateral lower extremities with other complication sCramp and spasm 4 Franco ARNLOD RVT, LARRY [place]. [address] [place] [address], [facility] [place], [id number], [place]. tel:[phone] [facility], [address] [place] [address] Dr [address]ata [address] 1000[place]ael [place], [id number], [place] tel:[phone] [facility] - [place] [facility] [place] Chronic venous hypertension (idiopathic) with other complication s of left lower extremity 4 Franco ARNOLD RVT, LARRY [place]. [address] [place] [address], [facility] [place], [id number], [place]. tel:[phone] Referring Provider: Fredrick Gamez MD, RVT, RPVI, [address] [facility] [address], [place], [address]. tel:[phone] Family History Family Member Type Diagnosis Age At Onset No Information Payers Payer name Insurance type Covered green party ID Authoriza tion(s) Medicare DOMINGA NELSON [id number] BCBS DOMINGA JOSIAS [id number] Social History Type Description Quantity Date Captured [...]
== END 2024-08-24 11:20 | disposition home or self-care (01) ==
PROVIDERS: PCP Internal Medicine; Visit Provider Internal Medicine
DX: J43.1 Panlobular emphysema (principal); I73.9 Peripheral vascular disease, unspecified; E78.00 Pure hypercholesterolemia, unspecified; R73.01 Impaired fasting glucose; E66.3 Overweight; F41.1 Generalized anxiety disorder

== ENCOUNTER → 2024-08-24 10:02 | Outpatient (BNVA) | payer MEDICARE, SELFPAY | PROVIDERS: PCP Internal Medicine; Visit Provider Internal Medicine | DX: J43.1 Panlobular emphysema (principal); E78.00 Pure hypercholesterolemia, unspecified; R73.01 Impaired fasting glucose; E66.3 Overweight; F41.1 Generalized anxiety disorder; I73.9 Peripheral vascular disease, unspecified | CPT/HCPCS: 96127; 99212 ==

== ENCOUNTER 2024-10-18 14:39 | Outpatient (REF) | payer MEDICARE, SELFPAY ==
--- OUTSIDE RECORDS SUMMARY | 2024-10-18 15:35 | XMS_ITS | Continuity of Care Document ---
Author Organization [facility] Address [address] [place] [address] Phone Care Team Providers Care Etl Programmer Name Role Phone Franco ARNOLD, RVT, LARRY, [...] Diagnoses Date Provider Providers Copied on Encounter [facility] Veronica GUZMAN, [address] [place] [address] Dr [address]Abimael [place], [id number], [place] tel:[phone] [facility] Encounter for cosmetic surgery 4 Franco ARNOLD RVT, RPVI Robert. [address] [place] [address], [facility] [place] [id number], [place]. tel:[phone] Referring Provider: Daniel García MD, [address] [place] [address] [address] [facility], [place], [address]. tel:[phone] Office/Outpt E&M Established 15 Mins- CT & [place] [facility] MD GUZMAN, [address] [place] [address] Dr [address]ata [address] 1000Abimael [place], [id number], [place] tel:[phone] R [facility] Venous insufficienc y (chronic) (peripheral) 4 Franco ARNOLD RVT, RPVI Robert. [address] [place] [address], [facility] [place] [id number], [place]. tel:[phone] [facility] Veronica ARNOLD [facility], [address] [place] [address] Dr Plata 1000Suite Abimael Ni [place], [id number], [place] tel:[phone] R [facility] Encounter for follow-up examination after completed treatment for conditions other than malignant nePain in left leg 4 Franco ARNOLD RVT, RPVI Robert. [address] [place] [address] [place], [id number], [place]. tel:[phone] Referring Provider: Fredrick Gamez MD, RVT, RPVI, [address] [place] [address], [id number]. tel:[phone] [facility] Hindu MD GUZMAN, [address] [place] [address] Dr [address] 1000Abimael [place], [id number], [place] tel:[phone] [facility] - [place] [facility] Encounter for follow-up examination after completed treatment for conditions other than malignant neVaricose veins of left lower extremity with pain 4 Franco ARNOLD RVT, RPVI Robert. [address] [facility], Suite [facility], [place], [place], [id number], [place]. tel:[phone] Referring Provider: Fredrick Gamez MD, MARNIE, LARRY, [address] [place] [address], [place], [address]. tel:[phone] [facility], [address] [place] [address] [address] 1000Abimael [place], [id number], [place] tel:[phone] [facility] - [facility] Encounter for follow-up examination after completed treatment for conditions other than malignant neoplasmPain in left leg 4 Franco ARNOLD RVT, RPVI Robert. [address] [place] [address], [place] [address], [place], [place], [id number], [place]. tel:[phone] Referring Provider: Daniel García MD, [address] [place] [address] Dr [address] [facility], [place], [address]. tel:[phone] [facility], [address] [place] [address] [address] 1000Abimael [place], [id number], [place] tel:[phone] CVR - [facility] Varicose veins of left lower extremity with other complication s 4 Mathew Wick. [facility], Suite [facility], [place], [place], [id number], [place]. tel:[phone] Referring Provider: Shamika Carmona NP, [address] [place] [address], [id number]. tel:[phone] [facility], [address] [place] [address] [address] 1000Abimael [place], [id number], [place] tel:[phone] CVR - [facility] Varicose veins of left lower extremity with other complication s 4 Franco ARNOLD RVT, RPVI Robert. [address] [place] [address], [place], [place], [id number], [place]. tel:[phone] Offic/outpt E&m Estab 5 Min Trial- Telemedicine CT & [place] [facility], [address] [place] [address] Dr [address]ata [address] 1000Abimael [place], [id number], [place] tel:[phone] [facility] - [place] [facility] Cramp and spasmVenous insufficienc y (chronic) (peripheral) Pruritus, unspecified 4 Mallika Mercedes. [address] [place] [address], [place], [place], [id number], [place]. tel:[phone] [facility], [address] [place] [address] Dr Plata 1000[facility] 1000Abimael [place], [id number], [place] tel:[phone] [facility] - [place] [facility] [place] No Information 4 Franco ARNOLD RVT, LARRY [place]. [address] [place] [address], [facility] [place], [id number], [place]. tel:[phone] Office/Oupt E&M New Pt 45 Mins- CT & [place] [facility], [address] [place] [address] Dr [address]ata 1000[address] 1000Abimael [place], [id number], [place] tel:[phone] CV[facility] - [place] [facility] [place] Varicose veins of bilateral lower extremities with other complication sCramp and spasm 4 Franco ARNODL RVT, LARRY [place]. [address] [place] [address], [facility] [place], [id number], [place]. tel:[phone] [facility]aj[facility], [address] [place] [address] Dr [address] 1000Abimael [place], [id number], [place] tel:[phone] CV[facility] - [place] [facility] [place] Chronic venous hypertension (idiopathic) with other complication s of left lower extremity 4 Franco ARNOLD RVT, LARRY [place]. [address] [place] [address], [facility] [place], [id number], [place]. tel:[phone] Referring Provider: Fredrick Gamez MD, RVT, RPVI, [address] [facility] [address], [place], [address]. tel:[phone] Family History Family Member Type Diagnosis Age At Onset No Information Payers Payer name Insurance type Covered democrat ID Authoriza tion(s) Medicare DOMINGA NELSON [id number] BCBS DOMINGA JOSIAS [id number] Social History Type Description Quantity Date Captured [...]
--- OUTSIDE RECORDS SUMMARY | 2024-10-18 15:35 | XMS_ITS | Encounter Summary ---
Author Organization [facility] Address [address] [place] [address] Care Team Providers Care Boring Machine Operator Double End Name Role Phone Daniel García MD Primary Care Provider [phone] Reason for Visit * Reason Onset Date Comments cancel pre op today 10/18/2024 Encounter Details Date Type Department Care Team ([facility] st Contact Info) Description 10/18/2024 Telephone Orthopedic Surgery - [place] 250 [address] [facility] [address] [place] [address] Liza Ferreira MD 175 [facility] [address] [place] [address] cancel pre op today Social History Tobacco Use Types Packs/Day Years Used Date Smoking Tobacco: Never Assessed Sex and Gender Information Value Date Recorded Sex Assigned at Not on file Gender Identity Not on file Sexual Orientation Not on file Job Start Date Occupation Industry Not on file Not on file Not on file documented as of this encounter Progress Notes * Liza Ferreira MD - 10/18/2024 9:43 AM EST I called the patient. I spoke with her . They both are feeling a little under the weather and are seeing her doctor later today. He said he would let us know what is decided. A lot will dependon if the patient is feeling better come Thursday. If she still not well by Thursday then certainly we should postpone surgery. For right now we will keep her in the schedule but again I informed him that best to wait that ever once feeling better before proceeding. * Isis Wetzel - 10/18/2024 8:47 AM EST Patient is calling to Cancel her Pre Op appt today., her spouse has Covid , and she did test Negative ,but has some symptoms a Cough and Stuffiness. She has an appt with her PCP today @ 1:30 , so sheis requesting a call back after 3:30 PM. to see if she can RS her Pre OP appt depending on the out come of her PCP appt. Her SX date is . Please call her back @ [phone] . Thanks. documented in this encounter Plan of Treatment Upcoming Encounters Date Type Department Care Team (Latest Contact Info) Description 10/26/2024 8:30 AM EST Hospital Encounter [facility] OR [address] [place] [phone] Liza Ferreira MD [address] [phone] 10/26/2024 8:30 AM EST - 10/26/2024 12:00 PM EST Surgery [facility] OR [address] [place] [phone] Liza Ferreira MD [address] [phone] RIGHT THUMB, INTERPOSITIONAL ARTHROPLASTY [20202 (CPT??)] 11/07/2024 10:00 AM EST Office Visit Orthopedic Surgery [place] [address] [phone] Savi Armenta PA [address] [phone] Scheduled Procedures Name Priority Associated Diagnoses Date/Ti me ARTHROPLASTY CARPOMETACARPAL Osteoarthritis of first carpometacarpal joint, unspecified 10/26/2024 8:30 AM EST TRANSFER TENDON Osteoarthritis of first carpometacarpal joint, unspecified 10/26/2024 8:30 AM EST documented as of this encounter Visit Diagnoses Not on filedocumented in this encounter Care Teams Boring Machine Operator Double End Relationship Specialty Start Date End Date Daniel García MD [address] [facility] [place] [address] PCP - General 02/16/24 documented as of this encounter
--- OUTSIDE RECORDS SUMMARY | 2024-10-18 15:35 | XMS_ITS | Clinical Summary ---
Author Organization [facility] Address [address] [place] [address] Phone Care Team Providers Care Automobile Body Repair Chief Name Role Phone Daniel García MD Primary Care Provider [phone] Allergies Active Allergy Reactions Criticality Noted Date Comments Oxycodone 06/07/2024 Avoid opiates, doesn't react well Medications Medication Sig Dispensed Refills Start Date End Date Status ipratropium-albutero L (COMBIVENT RESPIMAT) 20-100 mcg/actuation inhaler Inhale by mouth. Active diazePAM (VALIUM) 10 mg tablet Take 1 tablet (10 mg total) by mouth every 8 (eight) hours if needed. Max Daily Amount: 30 mg Active fluticasone-salmeter ol (ADVAIR DISKUS) 250-50 mcg/dose diskus inhaler Inhale 1 puff by mouth 2 (two) times a day. Rinse mouth with water after use to reduce aftertaste and incidence of candidiasis. Do not swallow. Active cholecalciferol (VITAMIN D-3) 25 mcg (1,000 unit) tablet Take 1 tablet (1,000 Units total) by mouth 1 (one) time each day. Active magnesium 250 mg tablet Take by mouth. Active Encounters Date Type Department Care Team Description 10/18/2024 Telephone Orthopedic Surgery - [place] 250 175 [facility] [address] [place] [address] Liza Ferreira MD cancel pre op today from Last 3 Months Surgical History Surgery Date Site/Laterality Comments HAND SURGERY 2002 Left PROCEDURE: HISTORICAL HAND SURGERY; COMMENT: thumb [facility] Medical History Medical History Date Comments COPD (chronic obstructive pu lmonary disease) ([facility]/HCC) DX:COPD (chronic obstructive pulmonary disease) ([facility]) PONV (postoperative nausea and vomiting) Social History Tobacco Use Types Packs/Day Years Used Date Smoking Tobacco: Never Assessed Sex and Gender Information Value Date Recorded Sex Assigned at Not on file Gender Identity Not on file Sexual Orientation Not on file Job Start Date Occupation Industry Not on file Not on file Not on file Obstetrics History Last Filed Vital Signs Vital Sign Reading Time Taken Comments Blood Pressure - - Pulse - - Temperature - - Respiratory Rate - - Oxygen Saturation - - Inhaled Oxygen Concentration - - Weight 67.1 kg (148 lb) 06/07/2024 10:22 AM EDT Height 154.9 cm (5' 1 ) 06/07/2024 10:22 AM EDT Body Mass Index 27.96 06/07/2024 10:22 AM EDT Plan of Treatment Upcoming Encounters Date Type Department Care Team (Latest Contact Info) Description 10/26/2024 8:30 AM EST Hospital Encounter [facility] OR [address] [place] [phone] Liza Ferreira MD [address] [phone] 10/26/2024 8:30 AM EST - 10/26/2024 12:00 PM EST Surgery [facility] OR [address] [place] [phone] Liza Ferreira MD [address] [phone] RIGHT THUMB, INTERPOSITIONAL ARTHROPLASTY [[id number] (CPT??)] 11/07/2024 10:00 AM EST Office Visit Orthopedic Surgery - [place] [address] [phone] Savi Armenta PA [address] [phone] Scheduled Procedures Name Priority Associated Diagnoses Date/Ti me ARTHROPLASTY CARPOMETACARPAL Osteoarthritis of first carpometacarpal joint, unspecified 10/26/2024 8:30 AM EST TRANSFER TENDON Osteoarthritis of first carpometacarpal joint, unspecified 10/26/2024 8:30 AM EST Health Maintenance Due Date Last Done Comments Breast Cancer Screening 1955 Pneumococcal Vaccine: 65+ Ye ars (1 of 2 - PCV) 1961 DTaP,Tdap,and Td Vaccines (1 - Tdap) 1974 Zoster Vaccines (1 of 2) 2005 RSV Immunization Patients 60 + Years Old (1 - Risk 60-74 years 1-dose series) 2015 Colorectal Cancer Screening: Colonoscopy 04/15/2024 Depression Screening 04/15/2024 Falls Risk Assessment 04/15/2024 Hepatitis C Screening 04/15/2024 Medicare Annual Wellness Visit 04/15/2024 Osteoporosis Screening (Bone Density Screening) 04/15/2024 Social Influencers of Health Screening 04/15/2024 COVID-19 Vaccine ( - 2023-2 5 season) 2024 Influenza Vaccine (#1) 2024 HIB Vaccines Aged Out No longer eligi ble based on patient's age to complete this topic HPV Vaccines Aged Out No longer eligi ble based on patient's age to complete this topic Hepatitis A Vaccines Aged Out No long er eligible based on patient's age to complete this topic Hepatitis B Vaccines Aged Out No long er eligible based on patient's age to complete this topic IPV Vaccines Aged Out No longer eligi ble based on patient's age to complete this topic MMR Vaccines Aged Out No longer eligi ble based on patient's age to complete this topic Meningococcal ACWY Vaccine Aged Out N o longer eligible based on patient's age to complete this topic RSV Immunization Patients Un anuja 20 months Aged Out No longer eligible b ased on patient's age to complete this topic Varicella Vaccines Aged Out No longer eligible based on patient's age to complete this topic Care Teams Automobile Body Repair Chief Relationship Specialty Start Date End Date Daniel García MD [address] [facility] [address] [facility] [place] [id number] PCP - General 02/16/24
[2024-10-18 16:03] LABS: Influenza A PCR NEGATIVE (Negative); Influenza B PCR NEGATIVE (Negative); Resp Syncy Virus RNA Qual PCR NEGATIVE (Negative); SARS COV2 PCR INHOUSE POSITIVE (Negative)
== END 2024-10-18 14:40 | disposition home or self-care (01) ==
LOC: HO.LAB 14:39
PROVIDERS: PCP Internal Medicine; Visit Provider Internal Medicine
DX: U07.1 COVID-19 (principal)
CPT/HCPCS: 0241U; 96127

== ENCOUNTER 2024-10-18 17:08 | Outpatient (AMB) | payer MEDICARE, SELFPAY ==
--- NOTE | 2024-10-18 17:08 | A.OFFPC_ITS ---
Intake Visit Reasons: Exposure to Covid (+) Pipeline Welder Required: No Information Interpreted: non-clinical & clinical Coin Dealer: Not Required per policy Accompanied by: Self / Same As Patient Allergies doxycycline Allergy (Intermediate, Verified 10/18/24 17:09) unknown meperidine [Demerol] Allergy (Intermediate, Verified 10/18/24 17:09) nausea and vomiting morphine [MORPHINE] Allergy (Intermediate, Verified 10/18/24 17:09) NAUSEA & VOMITING, nausea and vomiting oxycodone [OXYCODONE] Allergy (Intermediate, Verified 10/18/24 17:09) NAUSEA & VOMITING sulfamethoxazole [From Bactrim] Adverse Reaction (Intermediate, Verified 10/18/24 17:09) Rash trimethoprim [From Bactrim] Adverse Reaction (Intermediate, Verified 10/18/24 17:09) Rash OxyContin Allergy (Unknown, Uncoded 10/18/24 17:09) nausea and vomiting Tobacco use date assessed: 10/18/24 Dental Screening Dental Screen Date: 08/24/24 HPI Exposure to Covid (+) HPI Details The patient is a 69-year-old female presenting with a confirmed COVID- 19 infection. She reports feeling sick and extremely fatigued, symptoms that have been ongoing for an unspecified duration. She is aware of her diagnosis based on test results communicated to her during the conversation. Antiviral therapy with Paxlovid has been initiated for her COVID-19 infection. She was also provided with instructions regarding adequate hydration and the potential use of mucolytics and antitussives to manage symptoms if needed. Additionally, she mentioned having had to cancel a scheduled surgery due to her current illness to prevent exposure to others. [facility] Medical History Generalized anxiety disorder Right rib fracture Hypercholesterolemia Allergic rhinitis COPD (chronic obstructive pulmonary disease) Surgical History History of pubovaginal sling History of repair of rotator cuff History of ankle surgery History of tonsillectomy History of tubal ligation Family History Father CVD (cardiovascular disease) Myocardial infarction Mother Hypertension Sister No problems noted. Son No problems noted. Son No problems noted. Daughter No problems noted. Daughter No problems noted. Social History Housing: House Alcohol intake: never Patient Tobacco Use Status: Former Tobacco user Tobacco use type: Cigarette e-Cigarette/Vaping Use: Never Used Second Hand Smoke Exposure: Yes service: No Current occupational status: retired Current occupation: rt hand Cognitive needs: No Hearing needs: No Vision needs: Yes Questionnaire PHQ-9 Over the last 2 weeks, how often have you been bothered by any of the following problems? 1. Little interest or pleasure in doing things: not at all 2. Feeling down, depressed, or hopeless: not at all 3. Trouble falling or staying asleep, or sleeping too much: not at all 4. Feeling tired or having little energy: not at all 5. Poor appetite or overeating: not at all 6. Feeling bad about yourself - or that you are a failure or have let yourself or your family down: not at all 7. Trouble concentrating on things, such as reading the newspaper or watching television: not at all 8. Moving or speaking so slowly that other people could have noticed. Or the opposite - being so fidgety or restless that you have been moving around a lot more than usual: not at all 9. Thoughts that you would be better off or of hurting yourself in some way: not at all Total score: 0 Depression Screening Interpretation: Negative Depression Screening Done: Yes 64589 - PHQ-9 Billing: Yes Source: Developed by Drs. Fredrick Peter, Ashwini Mckeon, Isma Santiago and colleagues, with an educational albino from [employer]. Thrive Questionnaire Date Thrive assessed: 10/18/24 I am a: Patient What is your living situation today?: I have a steady place to live Within the past 12 months, did the food you bought not last and you didn't have the money to get more?: Never true Within the past 12 months, did you worry whether your food would run out before you got money to buy more?: Never true Do you have trouble paying for medicines?: No Do you have trouble getting transportation to medical appointments?: No Do you have trouble paying your heating and electricity bill?: No Do you have trouble taking care of your child, family member or friend?: No Do you have trouble with day-to-day activities such as bathing, preparing meals, shopping, managing finances, etc.?: No Are you currently unemployed and looking for a job?: No Are you interested in more education?: No Please select the resources that you would like help with: None Currently or been in a relationship where the following occur: No concerns reported THRIVE Score: 0 AUDIT C Alcohol Use Questionnaire (AUDIT-C) 1. How often do you have a drink containing alcohol?: Never 3. How often do you have six or more drinks on one occasion?: Never Total Score: 0 Score Reviewed/Action Taken: Yes KENZIE-7 AMB Questionnaire KENZIE-7 Date KENZIE - 7 assessed: 10/18/24 Feeling nervous, anxious, or on edge: 0 = Not at all Not being able to stop or control worryin = Not at all Worrying too much about different things: 0 = Not at all Trouble relaxin = Not at all Being so restless that it is hard to sit still: 0 = Not at all Becoming easily annoyed or irritable: 0 = Not at all Feeling afraid as if something awful might happen: 0 = Not at all Total KENZIE-7 score (0-4 normal; 5-9 mild; 10-14 moderate; 15-21 severe): 0 Source: Developed by Drs. Fredrick Peter, Ashwini Mckeon, Isma Santiago and colleagues, with an educational albino from [employer]. KENZIE-7 Assessment Billing KENZIE-7 Assessment Tool: KENZIE-7 Assessment 14429 Physical exam (Primary Care) Tobacco/Smoking Status: Tobacco use Status Tobacco use date assessed 10/18/24 10/18/24 17:09 Patient Tobacco Use Status Former Tobacco user 10/18/24 17:09 Tobacco use type Cigarette 10/18/24 17:09 e-Cigarette/Vaping Use Never Used 10/18/24 17:09 PHQ-9: PHQ-9 Score PHQ-9: Total score 0 10/18/24 17:09 Depression Screening Interpretation: Negative Thrive Assessment: Date of Thrive Assessment Date Thrive assessed 10/18/24 10/18/24 17:09 Currently or been in a relationship where the following occur: No concerns reported Telehealth Telehealth Telehealth Platform: Telephone Location of provider rendering services: practice address Location of patient: address on file Patient Identification confirmed using: Name, : Yes Telehealth method: voice only Patient verbally consented to treatment: Yes Patient verbally consented to billing insurance company: Yes Patient informed of any privacy concerns related to visit: Yes Minutes spent on Phone/Video with Pt.: 15 Coding Level of Care Code Tele Est Pt Level 3 (43652) Diagnoses COVID-19 virus infection U07.1 Additional Codes KENZIE-7 Assessment Billing - KENZIE-7 Assessment Tool: KENZIE-7 Assessment 78790 ([id number]) PHQ-9 - 35460 - PHQ-9 Billing: Yes ([id number]) Assessment & Plan Assessment & Plan (1) COVID-19 virus infection: Comment: 10/18/2024 Code(s): U07.1 - COVID-19 Category: Medical Plan: For the sore throat can take Cepacol lozenges, discussed about Delsym to help with dry cough so she can rest and advised to increase oral fluids. Patient also can take Tylenol for chills and fever. antiviral se Plan - Initiate antiviral treatment with Paxlovid for COVID-19 infection. - Educate on the importance of hydration; recommend water and Gatorade to ensure fluid intake. - Discuss potential use of tessalon pills for cough and Mucinex for phlegm if symptoms arise. - Advise delaying any scheduled surgical procedures due to the current infection to prevent transmission. - Patient was informed and verbally consented to the use of an ambient scribe for clinic note documentation during this visit. During our discussion, I informed the patient of her positive COVID-19 diagnosis and the need for antiviral treatment, specifically Paxlovid. I explained that it should be taken even if it might not be palatable, emphasizing the importance of starting it promptly to manage the infection. We discussed the need to maintain adequate hydration during this period. I advised postponing her scheduled surgery to avoid potential spread to others. The patient acknowledged understanding the connection between her high blood pressure, elevated leonel sterol, and the importance of managing these to prevent further complications. - Take the prescribed Paxlovid as directed. - Stay well-hydrated with water and Gatorade. - Use tessalon pills for cough and Mucinex for phlegm as needed based on symptoms. - Delay any surgery until cleared from COVID-19 to avoid spreading the infection. - - Contact healthcare provider if symptoms worsen or new symptoms develop. Medications: New nirmatrelvir-ritonavir 300 mg (150 mg x 2)-100 mg (Paxlovid) take TWO 150 mg tablets of nirmatrelvir with ONE 100 mg tablet of ritonavir twice daily for 5 days PO 30 ea 0RF U07.1 - COVID-19
--- OUTSIDE RECORDS SUMMARY | 2024-10-18 17:09 | XMS_ITS | Encounter Summary ---
Author Organization [facility] Address [address] [place] [address] Care Team Providers Care Lithograph Press Operator Name Role Phone Daniel García MD Primary Care Provider [phone] Reason for Visit * Reason Onset Date Comments cancel pre op today 10/18/2024 Encounter Details Date Type Department Care Team ([facility] st Contact Info) Description 10/18/2024 Telephone Orthopedic Surgery - [place] 250 175 [facility] [address] [place] [address] Liza Ferreira MD 175 [facility] [address] [place] [address] cancel pre op today Social [...] as of this encounter Progress Notes * Savi [place] - 10/18/2024 4:29 PM EST Pt still pending results and will call when she hears from * Liza Ferreira MD - 10/18/2024 9:43 [...] is . Please call her back @ [phone] . Thanks. documented in this encounter Plan of Treatment Upcoming Encounters Date Type Department Care Team (Latest Contact Info) Description 10/26/2024 8:30 AM EST Hospital Encounter [facility] OR [address] [place] [phone] Liza Ferreira MD [address] [address] 10/26/2024 8:30 AM EST - 10/26/2024 12:00 PM EST Surgery [address] [phone] Liza Ferreira MD [address] [phone] RIGHT THUMB, INTERPOSITIONAL ARTHROPLASTY [[id number] (CPT??)] 11/07/2024 10:00 AM EST Office Visit Orthopedic Surgery [facility] [address] [phone] Savi Armenta PA [address] [phone] Scheduled Procedures Name Priority Associated Diagnoses Date/Ti me ARTHROPLASTY CARPOMETACARPAL Osteoarthritis of first carpometacarpal joint, unspecified 10/26/2024 8:30 AM EST TRANSFER TENDON Osteoarthritis of first carpometacarpal joint, unspecified 10/26/2024 8:30 AM EST documented as of this encounter Visit Diagnoses Not on filedocumented in this encounter Care Teams Lithograph Press Operator Relationship Specialty Start Date End Date Daniel García MD [address] [place] [address] Dr [address] [facility] [place] [address] PCP - General 02/16/24 documented as of this encounter
--- OUTSIDE RECORDS SUMMARY | 2024-10-18 17:09 | XMS_ITS | Continuity of Care Document ---
Author Organization [facility] Address [address] [place] [address] Phone Care Team Providers Care Insurance Manager Name Role Phone Franco ARNOLD, RVT, LARRY, [...] Diagnoses Date Provider Providers Copied on Encounter [facility] Veronica GUZMAN, [address] [place] [address] Dr [address], [id number], [place] tel:[phone] [facility] Encounter for cosmetic surgery 4 Franco ARNOLD RVT, RPVI Robert. [address] [place] [address], [facility] [place] [id number], [place]. tel:[phone] Referring Provider: Daniel García MD, [address] [place] [address] [address] [facility], [place], [address]. tel:[phone] Office/Outpt E&M Established 15 Mins- CT & [place] [facility] MD GUZMAN, [address] [place] [address] Dr [address]ael [place], [id number], [place] tel:[phone] [facility] Venous insufficienc y (chronic) (peripheral) 4 Franco ARNOLD RVT, RPVI Robert. [address] [place] [address], [facility] [place], [id number], [place]. tel:[phone] [facility] Veronica ARNOLD [facility], [address] [place] [address] Dr Plata [address]Suite [place]im[place] Ni [place], [id number], [place] tel:[phone] [facility] Encounter for follow-up examination after completed treatment for conditions other than malignant nePain in left leg 4 Franco ARNOLD RVT, RPVI Robert. [address] [place] [address] [place], [id number], [place]. tel:[phone] Referring Provider: Fredrick Gamez MD, RVT, RPVI, [address] [place] [address], [address]. tel:[phone] [facility] Presy[facility] MD GUZMAN, [address] [place] [address] [address] 1000[place]imael [place], [id number], [place] tel:[phone] [facility] - [place] [facility] Encounter for follow-up examination after completed treatment for conditions other than malignant neVaricose veins of left lower extremity with pain 4 Franco ARNOLD RVT, RPVI Robert. [address] [facility], Suite [facility], [place], [place], [id number], [place]. tel:[phone] Referring Provider: Fredrick Gamez MD, MARNIE, LARRY, [address] [place] [address], [place], [address]. tel:[phone] [facility], [address] [place] [address] [address]Abimael [place], [id number], [place] tel:[phone] [facility] - [facility] Encounter for follow-up examination after completed treatment for conditions other than malignant neoplasmPain in left leg 4 Franco ARNOLD RVT, RPVI Robert. [address] [place] [address], [place] [address], [place], [place], [id number], [place]. tel:[phone] Referring Provider: Daniel García MD, [address] [place] [address] Dr [address] [facility], [place], [address]. tel:[phone] [facility], [address] [place] [address] [address] 1000Abimael [place], [id number], [place] tel:[phone] CV[facility] - [facility] Varicose veins of left lower extremity with other complication s 4 Mathew Wick. [facility], Suite [facility], [place], [place], [id number], [place]. tel:[phone] Referring Provider: Shamika Carmona NP, [address] [place] [address], [address]. tel:[phone] [facility], [address] [place] [address] [address] 1000Abimael [place], [id number], [place] tel:[phone] CVR - [facility] Varicose veins of left lower extremity with other complication s 4 Franco ARNOLD RVT, RPVI Robert. [address] [place] [address], [place], [place], [id number], [place]. tel:[phone] Offic/outpt E&m Estab 5 Min Trial- Telemedicine CT & [place] [facility], [address] [place] [address] Dr [address]ata [address] 1000Abimael [place], [id number], [place] tel:[phone] [facility] - [place] [facility] Cramp and spasmVenous insufficienc y (chronic) (peripheral) Pruritus, unspecified 4 Mallika Mercedes. [address] [place] [address], [place], [place], [id number], [place]. tel:[phone] [facility], [address] [place] [address] Dr Plata 1000[facility] 1000[place]im[place], [id number], [place] tel:[phone] [facility] - [place] [facility] No Information 4 Franco ARNOLD RVT, LARRY [place]. [address] [place] [address], [facility] [place], [id number], [place]. tel:[phone] Office/Oupt E&M New Pt 45 Mins- CT & [place] [facility], [address] [place] [address] Dr [address] 1000Abimael [place], [id number], [place] tel:[phone] [facility] - [place] [facility] [place] Varicose veins of bilateral lower extremities with other complication sCramp and spasm 4 Franco ARNOLD RVT, LARRY [place]. [address] [place] [address], [facility] [place], [id number], [place]. tel:[phone] [facility], [address] [place] [address] Dr [address] 1000[place]imael [place], [id number], [place] tel:[phone] [facility] [place] [facility] Chronic venous hypertension (idiopathic) with other complication s of left lower extremity 4 Franco ARNOLD RVT, LARRY [place]. [address] [place] [address], [facility] [place], [id number], [place]. tel:[phone] Referring Provider: Fredrick Gamez MD, RVT, RPVI, [address] [facility] [address], [place], [address]. tel:[phone] Family History Family Member Type Diagnosis Age At Onset No Information Payers Payer name Insurance type Covered libertarian ID Authoriza tion(s) Medicare DOMINGA NELSON [id number] BCBS DOMINGA JOSIAS [id number] Social History Type Description Quantity Date Captured [...] Dates (start - stop) Status Members No Information"
== END 2024-10-18 17:36 | disposition home or self-care (01) ==
LOC: HO.HMCH 17:08
PROVIDERS: PCP Internal Medicine; Visit Provider Internal Medicine
DX: U07.1 COVID-19 (principal)

== ENCOUNTER 2024-11-09 09:16 | Outpatient (AMB) | payer MEDICARE, SELFPAY ==
--- NOTE | 2024-11-09 09:24 | MHC.OFFWIV ---
Intake Vital Signs 11/09/24 09:25 Weight 148 lb BP 130/90 H Blood Pressure Location Rt brachial Position Sitting Pulse 75 Pulse Source Pulse Oximeter Temp 98.0 F Temp Source Oral Pulse Oximetry (%) 97 Oxygen Delivery Method Room Air Intake Visit Reasons: EP Sinus infection? Intake Note: Patient here for sinus pressure, cough that has been present for 4-5 days. Patient Tobacco Use Status: Former Tobacco user Allergies doxycycline Allergy (Intermediate, Verified 11/09/24 09:26) unknown meperidine [Demerol] Allergy (Intermediate, Verified 11/09/24 09:26) nausea and vomiting morphine [MORPHINE] Allergy (Intermediate, Verified 11/09/24:) NAUSEA & VOMITING, nausea and vomiting oxycodone [OXYCODONE] Allergy (Intermediate, Verified 11/09/24:) NAUSEA & VOMITING sulfamethoxazole [From Bactrim] Adverse Reaction (Intermediate, Verified 11/09/24:) Rash trimethoprim [From Bactrim] Adverse Reaction (Intermediate, Verified 11/09/24:) Rash OxyContin Allergy (Unknown, Uncoded 11/09/24:) nausea and vomiting Do you need a note to return to daycare/school/sports/work: No HPI HPI Comments History of Present Illness Details History - The patient is a 69-year-old female presenting with sinus congestion and pain. - Symptoms: The patient reports nasal congestion, crusty eyes, redness in eyes, and ear discomfort due to wax buildup. Associated with a productive cough with yellow sputum. - Previous Treatments: Utilizes inhalers and nebulizers to manage COPD symptoms. Avoids nasal sprays as they cause discomfort. Relies on antibiotics during sinus infection incidents. - Allergic Management: Refrains from using Flonase due to existing steroid usage in inhalers - Social History: Former smoker, quit 15 years prior. COPD history acknowledged. - Current Concerns: Attempting to avoid medications like prednisone to prepare for surgery scheduled for January 12. - Diagnosed with Covid on 10/18. Physical Exam General: Cooperative, healthy appearing, comfortable and no acute distress Orientation/consciousness: Patient oriented x3 Limitations: No limitations Head: Normal to inspection Ears: Hearing grossly normal bilaterally, external ears normal, TM's normal left, right with cerumen, erythematous (post removal) Nose: Normal external nose present, Normal nares present, and some nasal discharge present Face and sinus: Normal facial exam and Yes sinuses tender Mouth: Normal oral and palatal mucosa present and moist mucous membranes Throat: Yes tonsils normal, Yes uvula midline. Posterior oropharynx erythema Eyes: Appearance normal, both eyes and all related structures. Neck: Normal visual inspection Respiratory: Clear to auscultation bilaterally. Normal respiratory effort, able to speak in complete sentences, no respiratory distress, not tachypneic, no tripod positioning and no use of accessory muscles Cardiovascular: Regular rate and rhythm. Normal S1 and S2 Skin: No rashes or lesions noted Neuro: Patient oriented x3 Extremities: Normal to inspection and Yes no clubbing, cyanosis or edema [facility] Medical History Generalized anxiety disorder Right rib fracture Hypercholesterolemia Allergic rhinitis COPD (chronic obstructive pulmonary disease) Surgical History History of pubovaginal sling History of repair of rotator cuff History of ankle surgery History of tonsillectomy History of tubal ligation Family History Father CVD (cardiovascular disease) Myocardial infarction Mother Hypertension Sister No problems noted. Son No problems noted. Son No problems noted. Daughter No problems noted. Daughter No problems noted. Social History Housing: House Alcohol intake: never Patient Tobacco Use Status: Former Tobacco user Tobacco use type: Cigarette e-Cigarette/Vaping Use: Never Used Second Hand Smoke Exposure: Yes service: No Current occupational status: retired Current occupation: rt hand Cognitive needs: No Hearing needs: No Vision needs: Yes Review of Systems Const All systems reviewed & are unremarkable except as noted in HPI and below Physical Exam Vital Signs: Last Vital Signs Temp 98.0 F 11/09/24 09:25 Pulse 75 11/09/24 09:25 BP 130/90 H 11/09/24 09:25 Pulse Ox 97 11/09/24 09:25 Oxygen Delivery Method Room Air 11/09/24 09:25 Office Procedures Cerumen Removal From which ear canal was the cerumen removed: right Removal: cerumen loop/spoon Notes: patient tolerated procedure well, no complications and ear canal clear [id number] Wax Removal by Spoon/Curette Assessment & Plan Assessment & Plan (1) Sinusitis: Code(s): J32.9 - Chronic sinusitis, unspecified Qualifiers: Chronicity: acute Recurrence: non-recurrent Sinusitis location: maxillary Qualified Code(s): J01.00 - Acute maxillary sinusitis, unspecified Plan: To address the suspected bacterial sinusitis s/p Covid infection on 10/18. Sent flu, COVID-19, and RSV will be conducted to be thorough. Augmentin was prescribed. Benadryl is recommended at night as a drying agent to alleviate symptoms. The patient's current COPD management with inhalers and nebulizer will continue as there are no signs of exacerbation. Prednisone is avoided owing to an upcoming surgical procedure the patient has scheduled. After the results of diagnostic tests, further treatment and changes will be communicated. Patient was informed and verbally consented to the use of an ambient scribe for clinic note documentation during this visit (2) Excessive cerumen in right ear canal: Code(s): H61.21 - Impacted cerumen, right ear Plan: Removed. Wax buildup in the ear is addressed with continuing use of Debrox drops. Orders: Orders SARS-CoV2/FLU/RSV Today J32.9 - Chronic sinusitis, unspecified Medications: New amoxicillin-pot clavulanate 875-125 mg 1 tab PO Q12H 14 tabs 0RF Coding Level of Care Code Est Pt Level 4 (72082) Diagnoses Acute non-recurrent maxillary sinusitis J01.00 Chronicity: acute Recurrence: non-recurrent Sinusitis location: maxillary Excessive cerumen in right ear canal H61.21 CPT Codes Office Procedure - CPT: 18245-Fts Wax Removal by Spoon/Curette ([id number])
[2024-11-09 09:25] VITALS: BP 130/90; PULSE 75; TEMP 36.7; O2SAT 97
--- OUTSIDE RECORDS SUMMARY | 2024-11-09 09:28 | XMS_ITS | Continuity of Care Document ---
Author Organization [facility] Address [address] [place] [address] Phone Care Team Providers Care Department Clinician Name Role Phone Franco ARNOLD, RVT, LARRY, [...] Guidan Needle Bx-rad- CT & [place] J Duplex Scan-extrem Veins; Uni/ CT & [place] J Endovenous Laser, 1st [...] Diagnoses Date Provider Providers Copied on Encounter [facility] Veronica GUZMAN, [address] [place] [address] Dr Plata 1000[address] 1000Abimael [place], [id number], [place] tel:[phone] [facility] Encounter for cosmetic surgery 4 Franco ARNOLD RVT, RPVI Robert. [address] [place] [address], [facility] [place], [id number], [place]. tel:[phone] Referring Provider: Daniel García MD, [address] [place] [address] [address] [facility], [place], [address]. tel:[phone] Office/Outpt E&M Established 15 Mins- CT & [place] [facility] MD GUZMAN, [address] [place] [address] Dr [address]ata 1000[address] 1000Abimael MD, [id number], [place] tel:[phone] R [facility] Venous insufficienc y (chronic) (peripheral) 4 Franco ARNOLD RVT, RPVI Robert. [address] [place] [address], [facility] [place], [id number], [place]. tel:[phone] [facility] Veronica [facility]NOLD [facility], [address] [place] [address] Dr Plata 1000Suite Abimael Ni [place], [id number], [place] tel:[phone] R [facility] Encounter for follow-up examination after completed treatment for conditions other than malignant nePain in left leg 4 Franco ARNOLD RVT, RPVI Robert. [address] [place] [address] [place], [id number], [place]. tel:[phone] Referring Provider: Fredrick Gamez MD, RVT, RPVI, [address] [place] [address], [address]. tel:[phone] [facility] MD GUZMAN, [address] [place] [address] Dr [address]ata [address] 1000Abimael [place], [id number], [place] tel:[phone] [facility] [place] [facility] [place] Encounter for follow-up examination after completed treatment for conditions other than malignant neVaricose veins of left lower extremity with pain 4 Franco ARNOLD RVT, RPVI Robert. [address] [facility], [place] [address], [place], [place], [id number], [place]. tel:[phone] Referring Provider: Fredrick Gamez MD, LARRY DYE, [address] [place] [address], [address]. tel:[phone] [facility], [address] [place] [address] [address] 1000Abimael [place], [id number], [place] tel:[phone] [facility] - [place] [facility] [place] Varicose veins of left lower extremity with other complication s 4 Mathew Wick. [address] [place] [address], [place], [place], [id number], [place]. tel:[phone] Referring Provider: Shamika Carmona NP, [address] [place] [address], [address]. tel:[phone] [facility], [address] [place] [address] [address] 1000Abimael [place], [id number], [place] tel:[phone] [facility] [place] [facility] [place] Encounter for follow-up examination after completed treatment for conditions other than malignant neoplasmPain in left leg 4 Franco ARNOLD RVT, RPVI Robert. [address] [place] [address], [place], [place], [id number], [place]. tel:[phone] Referring Provider: Daniel García MD, [address] [place] [address] Dr [address] [facility], [place], [address]. tel:[phone] [facility], [address] [place] [address] [address] 1000Abimael [place], [id number], [place] tel:[phone] [facility] - [place] [facility] [place] Varicose veins of left lower extremity with other complication s 4 Franco ARNOLD RVT, RPVI Robert. [address] [place] [address], [place], [place], [id number], [place]. tel:[phone] Offic/outpt E&m Estab 5 Min Trial- Telemedicine CT & [place] [facility], [address] [place] [address] Dr [address]ata [address] 1000Abimael [place], [id number], [place] tel:[phone] [facility] - [place] Cramp and spasmVenous insufficienc y (chronic) (peripheral) Pruritus, unspecified 4 Mallika Mercedes. [address] [place] [address], [place], [place], [id number], [place]. tel:[phone] [facility], [address] [place] [address] Dr Plata 1000[facility] 1000[place]im[place], [id number], [place] tel:[phone] [facility] [place] No Information 4 Franco ARNOLD RVT, LARRY [place]. [address] [place] [address], [facility] [place], [id number], [place]. tel:[phone] Office/Oupt E&M New Pt 45 Mins- [place] & [place] [facility], [address] [place] [address] Dr Plata 1000Suite 1000Abimael [place], [id number], [place] tel:[phone] [facility] - [place] Varicose veins of bilateral lower extremities with other complication sCramp and spasm 4 Franco ARNOLD RVT, LARRY [place]. [address] [place] [address], [facility] [place], [id number], [place]. tel:[phone] [facility], [address] [place] [address] Dr [address]ata 1000[address] 1000Abimael [place], [id number], [place] tel:[phone] [facility] - [place] [facility] [place] Chronic venous hypertension (idiopathic) with other complication s of left lower extremity 4 Franco ARNOLD RVT, LARRY [place]. [address] [place] [address], [facility] [place], [id number], [place]. tel:[phone] Referring Provider: Fredrick Gamez MD, RVT, RPVI, [address] [facility] [address], [place], [address]. tel:[phone] Family History Family Member Type Diagnosis Age At Onset No Information Payers Payer name Insurance type Covered democrat ID Authoriza tion(s) Medicare DOIMNGA NELSON [id number] BCBS DOMINGA JOSIAS [id number] Social History Type Description Quantity Date Captured [...]
--- OUTSIDE RECORDS SUMMARY | 2024-11-09 09:28 | XMS_ITS | Encounter Summary ---
Author Organization [facility] Address [address] [place] [phone] Care Team Providers Care Deposit Clerk Name Role Phone Daniel García MD Primary Care Provider Reason for Referral * Orthopedic (Routine) - Authorized Specialty Diagnoses / Procedures Referred By Contjosseline t Referred To Contact Orthopedic Surgery / Orthopaedic Surgery Diagnoses Acute pain of left shoulder Procedures L Inj/Asp: L subacromial bursa Savi Armenta PA [address] [facility] [address] [address] Phone: tel: fax: Referral ID Status Reason Start Date Expiration Date V isits Requested Visits Authorized [id number] Authorized 11/07/2024 11/07/2025 1 1 Reason for Visit * Reason Comments Pain Encounter Details Date Type Department Care Team (Late st Contact Info) Description 11/07/2024 10:00 AM EST Office Visit Orthopedic Surgery - [place] [address] [facility] [address] [place] [phone] Savi Armenta PA [address] [facility] [address] [place] [phone] Acute pain of left shoulder (Primary Dx) Social History Tobacco Use Types Packs/Day Years Used Date Smoking Tobacco: Never Assessed Comments Unknown Sex and Gender Information Value Date Recorded Sex Assigned at Not on file Legal Sex Female 11:01 AM EDT Gender Identity Not on file Sexual Orientation Not on file documented as of this encounter Progress Notes * JERICHO Jimenez - 11/07/2024 10:00 AM ESTAssociated Order(s): L Inj/Asp: L subacromial bursa Post-Procedure Diagnose(s): Acute pain of left shoulder CHIEF COMPLAINT: Pain of the Left Shoulder had concerns including Pain of the Left Shoulder. IDENTIFIER: Tiffanie Honeycutt is a 69 y.o. old female SUBJECTIVE: Tiffanie Honeycutt is here for different problem of left shoulder pain. She states she did have a problem with left shoulder pain about 20 years ago and had some cortisone injection injection performed byDr. Ferreira she states it was done more anteriorly. I do not have these records. She started having issues again with the left shoulder on and off for the past 6 months trouble lying on her side at night. It is difficult for her to localize the pain seems to be somewhat subacromial space but also at the joint. Reaching makes it worse. No injury to her left shoulder or surgery. PAST MEDICAL/SURGICAL HISTORY: There are no active problems to display for this patient. Past Surgical History: Procedure Laterality Date ??? HAND SURGERY Left 2002 PROCEDURE: HISTORICAL HAND SURGERY; COMMENT: thumb [facility] MEDICATIONS DISCONTINUED/REORDERED: There are no discontinued medications. ACTIVE MEDICATIONS: Current Outpatient Medications on File Prior to Visit Medication Sig Dispense Refill ??? cholecalciferol (VITAMIN D-3) 25 mcg (1,000 unit) tablet Take 1 tablet (1,000 Units total) by mouth 1 (one) time each day. ??? diazePAM (VALIUM) 10 mg tablet Take 1 tablet (10 mg total) by mouth every 8 (eight) hours if needed. Max Daily Amount: 30 mg ??? fluticasone-salmeterol (ADVAIR DISKUS) 250-50 mcg/dose diskus inhaler Inhale 1 puff by mouth 2 (two) times a day. Rinse mouth with water after use to reduce aftertaste and incidence of candidiasis. Do not swallow. ??? ipratropium-albuteroL (COMBIVENT RESPIMAT) 20-100 mcg/actuation inhaler Inhale by mouth. ??? magnesium 250 mg tablet Take by mouth. No current facility-administered medications on file prior to visit. ALLERGIES: Allergies Allergen Reactions ??? Oxycodone Avoid opiates, doesn't react well PHYSICAL EXAM: Visit Vitals Smoking Status Never Assessed APPEARANCE: Alert and in no acute distress EYES: conjunctivae and sclerae normal EXTREMITIES: Extremities warm and well perfused without clubbing, cyanosis, or edema Left upper extremity no swelling no atrophy. Active forward flexion is 180, ER is limited actively about 20 degrees internal rotation to T12. Actively forward flexion is 180, ER 50, abduction external rotation 100. No pain with resisted abduction external rotation. Negative drop arm test. Intact belly press. Mildly positive Neer's test negative Hawkin's test. Pain to palpation over subacromial space some mild pain at bicipital groove. Mildly positive speeds test negative Jurgenson's test. VASCULAR:well perfused with normal pulses in the distal extremities and no peripheral edema noted NEURO: Awake, alert and oriented SKIN: Skin color, texture, turgor normal. No rashes or lesions. PSYCH: does not appear depressed or anxious and oriented to time, place and person LABS/IMAGING: Xrays reviewed: XR Shoulder 2+ Views Left Date of Visit: 11/07/2024 Reason for visit: Left shoulder pain Views: AP, Grashey, Y, axillary left shoulder Comparison: None Findings: No fracture, dislocation or lytic lesions. Narrowing of subacromial space and slight proximal migration of humeral head. No significant arthritis. Diffuse osteopenia. No calcifications. Impression: Narrowing of subacromial space. No acute findings IMPRESSION: 1. Acute pain of left shoulder PLAN: The details of the visit were reviewed with the patient. Pertinent history, and objective findings were reviewed, along with the diagnoses: Left shoulder pain with differential diagnosis bursitis/impingement versus osteoarthritis or labral pathology. It is somewhat difficult for patient to localizethe pain. Discussed with patient treatment options. Discussed physical therapy at home exercises and cortisone injection. Discussed cortisone injection subacromial versus ultrasound-guided glenohumeral. Patient is going to be undergoing surgery for [facility] arthritis in about 6 weeks therefore would be difficult to do physical therapy currently. Proceeding with left subacromial cortisone pain if symptoms persist patient will call we can consider setting up left ultrasound-guided glenohumeral injection with Dr. Lui Torres Inj/Asp: L subacromial bursa Indications: pain Details: 25 G needle, lateral approach Medications: 0.5 mL lidocaine 1 %; 40 mg triamcinolone acetonide 40 mg/mL Informed Consent: Laterality: Left Relevant images/test results available and reviewed: yes Health status cleared: Yes Procedure/treatment, purpose, treatment alternatives, risks/potential complications and benefits explained: yes Risk/complications/benefits details: Risks of infection, thinning of the skin and temporary skin discoloration discussed. Discussed risks of temporary increased pain after injection and swelling and mild redness at injection site for couple days. Explained occasionally cortisone injection can causefacial flushing temporarily. Benefits pain management. For postop injection pain ice, Tylenol and/or NSAIDs if patient can take Patient questions answered: yes Patient agrees, verbalizes understanding, and wants to proceed: yes Consent given by: Patient Informed consent discussion completed by Physician/CARLY with patient: Verbal Pre-procedure timeout performed: yes Tiffanie Honeycutt acknowledges understanding of the above plan and agrees to follow recommendations and/or take medications as prescribed. No orders of the defined types were placed in this encounter. @ELECSIG@ documented in this encounter Plan of Treatment Upcoming Encounters Date Type Department Care Team (Latest Contact Info) Description 12/19/2024 11:00 AM EDT Consult Orthopedic Surgery - [address] [phone] Liza Ferreira MD [address] [place] [phone] 01/12/2025 9:00 AM EDT Hospital Encounter [facility] OR [address] [place] [phone] Liza Ferreira MD [address] [place] [phone] 01/12/2025 9:00 AM EDT - 01/12/2025 12:30 PM EDT Surgery [facility] [place] [address] [place] [phone] Liza Ferreira MD [address] [place] [phone] RIGHT THUMB, INTERPOSITIONAL ARTHROPLASTY [[id number] (CPT??)] 01/20/2025 9:30 AM EDT Office Visit Orthopedic Surgery - [place] [address] [place] [address] Savi Armenta PA [address] [place] [phone] Scheduled Procedures Name Priority Associated Diagnoses Date/Ti me ARTHROPLASTY CARPOMETACARPAL Osteoarthritis of first carpometacarpal joint, unspecified 01/12/2025 9:00 AM EDT TRANSFER TENDON Osteoarthritis of first carpometacarpal joint, unspecified 01/12/2025 9:00 AM EDT documented as of this encounter Procedures Procedure Name Priority Date/Time Associated Diagnosis Comments [place] ARTHROCENTESIS/ASPI RATION/INJECTION MAJOR JOINT/BURSA W/O U/S GUIDANCE Routine 11/07/2024 10:00 AM EST Acute pain of left shoulder documented in this encounter Results * [place] ARTHROCENTESIS/ASPIRATION/INJECTION MAJOR JOINT/BURSA W/O U/S GUIDANCE (11/07/2024 10:00 AM EST) Narrative Savi Armenta PA - 11/07/2024 10:00 AM EST JERICHO Jimenez ? 11/07/2024 12:23 PM L Inj/Asp: L subacromial bursa Indications: pain Details: 25 G needle, lateral approach Medications: 0.5 mL lidocaine 1 %; 40 mg triamcinolone acetonide 40 mg/mL Informed Consent: ??Laterality: ??Left ??Relevant images/test results available and reviewed: yes ?Health status cleared: ??Yes ??Procedure/treatment, purpose, treatment alternatives, risks/potential complications and benefits explained: yes ?Risk/complications/benefits details: ??Risks of infection, thinning of the skin and temporary skin discoloration discussed. ??Discussed risks of temporary increased pain after injection and swelling and mild redness at injection site for couple days. ??Explained occasionally cortisone injection can cause facial flushing temporarily. ??Benefits pain management. ??For postop injection pain ice, Tylenol and/or NSAIDs if patient can take ??Patient questions answered: yes ?Patient agrees, verbalizes understanding, and wants to proceed: yes ?Consent given by: ??Patient ??Informed consent discussion completed by Physician/CARLY with patient: ?? Verbal ??Pre-procedure timeout performed: yes ?? us Savi ECHAVARRIA IN CLINIC/BEDSIDE ORDERABLES Final Result documented in this encounter Visit Diagnoses Diagnosis Acute pain of left shoulder- Primary Osteoarthritis of first carpometacarpal joint, unspecified documented in this encounter Administered Medications Inactive Administered Medications - up to 3 most recent administrations Medication Order MAR Action Action Date Dose Rate Site lidocaine (XYLOCAINE) 1 % injection 0.5 mL 0.5 mL, injection, Once PRN Procedure, Starting on Thu11/07/24 at 1000, For 1 doseIndications:Acute pain of left shoulder Given 11/07/2024 10:00 AM EST 0.5 mL triamcinolone acetonide (KENALOG-40) 40 mg/mL injection 40 mg 40 mg, intra-articular, Once PRN Procedure, Starting on Thu11/07/24 at 1000, For 1 doseIndications:Acute pain of left shoulder Given 11/07/2024 10:00 AM EST 40 mg documented in this encounter Care Teams Deposit Clerk Relationship Specialty Start Date End Date Po, MD Daniel [address] [place] [address] [address] [facility] [place] [address] PCP - General 02/16/24 documented as of this encounter
--- OUTSIDE RECORDS SUMMARY | 2024-11-09 09:28 | XMS_ITS | Encounter Summary ---
Author Organization [facility] Address [address] [place] [phone] Care Team Providers Care Residential Instructor Name Role Phone Daniel García MD Primary Care Provider [phone] Reason for Visit * Reason Onset Date Comments cancel pre op today 10/18/2024 Encounter Details Date Type Department Care Team ([facility] st Contact Info) Description 10/18/2024 Telephone Orthopedic Surgery - [place] [address] 175 [facility] [address] [place] [address] Liza Ferreira MD 175 [facility] [address] [place] [address] cancel pre op today Social History Tobacco Use Types Packs/Day Years Used Date Smoking Tobacco: Never Assessed Comments Unknown Sex and Gender Information Value Date Recorded Sex Assigned at Not on file Legal Sex Female 11:01 AM EDT Gender Identity Not on file Sexual Orientation Not on file documented as of this encounter Progress Notes * Minerva Stafford - 10/19/2024 8:51 AM EST Tiffanie is calling back stating she has tested positive for covid * Savi Gibson - 10/18/2024 4:29 PM [...] her PCP today @ 1:30 , so she is requesting a call back after 3:30 PM. to see if she can RS her Pre OP appt depending on the outcome of her PCP appt. Her SX date is . Please call her back @ [phone] . Thanks. documented in this encounter Plan of Treatment Upcoming Encounters Date Type Department Care Team (Latest Contact Info) Description 12/19/2024 11:00 AM EDT Consult Orthopedic Surgery - [place] [address] [phone] Liza Ferreira MD [address] [phone] 01/12/2025 9:00 AM EDT Hospital Encounter [facility] [place] [address] [place] [phone] Liza Ferreira MD [address] [phone] 01/12/2025 9:00 AM EDT - 01/12/2025 12:30 PM EDT Surgery [facility] [place] [address] [place] [phone] Liza Ferreira MD [address] [phone] RIGHT THUMB, INTERPOSITIONAL ARTHROPLASTY [[id number] (CPT??)] 01/20/2025 9:30 AM EDT Office Visit Orthopedic Surgery - [place] [address] [phone] Savi Armenta PA [address] [phone] Scheduled Procedures Name Priority Associated Diagnoses Date/Ti me ARTHROPLASTY CARPOMETACARPAL Osteoarthritis of first carpometacarpal joint, unspecified 01/12/2025 9:00 AM EDT TRANSFER TENDON Osteoarthritis of first carpometacarpal joint, unspecified 01/12/2025 9:00 AM EDT documented as of this encounter Visit Diagnoses Not on filedocumented in this encounter Care Teams Residential Instructor Relationship Specialty Start Date End Date Daniel García MD [address] [place] [address] [address] [facility] [place] [address] PCP - General 02/16/24 documented as of this encounter
--- OUTSIDE RECORDS SUMMARY | 2024-11-09 09:28 | XMS_ITS | Clinical Summary ---
Author Organization [facility] Address [address] [place] [address] Phone Care Team Providers Care Textile Conservator Name Role Phone Daniel García MD Primary Care Provider [phone] Allergies Active Allergy Reactions Criticality Noted Date Comments Oxycodone 06/07/2024 Avoid opiates, doesn't react well Medications ipratropium-alb uteroL (COMBIVENT RESPIMAT) 20-100 mcg/actuation inhaler Inhale by mouth. Active diazePAM (VALIUM) 10 mg tablet Take 1 tablet (10 mg total) by mouth every 8 (eight) hours if needed. Max Daily Amount: 30 mg Active fluticasone-ethan meterol (ADVAIR DISKUS) 250-50 mcg/dose diskus inhaler Inhale 1 puff by mouth 2 (two) times a day. Rinse mouth with water after use to reduce aftertaste and incidence of candidiasis. Do not swallow. Active cholecalciferol (VITAMIN D-3) 25 mcg (1,000 unit) tablet Take 1 tablet (1,000 Units total) by mouth 1 (one) time each day. Active magnesium 250 mg tablet Take by mouth. Activ e Hospital, Clinic, or Other Facility Administered Medication Ordered Dose Route Frequency Start Date End Date Status lidocaine (XYLOCAINE) 1 % injection 0.5 mLIndications:Acute pain of left shoulder .5 mL inj Once PRN Procedure 11/07/2024 11/07/2024 Ended triamcinolone acetonide (KENALOG-40) 40 mg/mL injection 40 mgIndications:Acute pain of left shoulder 40 mg IAtc Once PRN Procedure 11/07/2024 11/07/2024 Ended Encounters Date Type Department Care Team Description 11/07/2024 10:00 AM EST Office Visit Orthopedic Surgery - [place] 175 [facility] [address] [place] [address] Savi Armenta PA Acute pain of left shoulder (Primary Dx) 10/18/2024 Telephone Orthopedic Surgery [facility] 250 175 [facility] 250 [place] [address] Liza Ferreira MD cancel pre op today from Last 3 Months Surgical History Surgery Date Site/Laterality Comments HAND SURGERY 2002 Left PROCEDURE: HISTORICAL HAND SURGERY; COMMENT: thumb [facility] Medical History Medical History Date Comments COPD (chronic obstructive pu lmonary disease) ([facility]/HCC) DX:COPD (chronic obstructive pulmonary disease) ([facility]) PONV (postoperative nausea and vomiting) Social History Tobacco Use Types Packs/Day Years Used Date Smoking Tobacco: Never Assessed Comments Unknown Sex and Gender Information Value Date Recorded Sex Assigned at Not on file Legal Sex Female 11:01 AM EDT Gender Identity Not on file Sexual Orientation Not on file Obstetrics History Last Filed [...] 12/19/2024 11:00 AM EDT Consult Orthopedic Surgery [facility] [address] [phone] Liza Ferreira MD [address] [phone] 01/12/2025 9:00 AM EDT Hospital Encounter [facility] [place] [address] [place] [phone] Liza Ferreira MD [address] [phone] 01/12/2025 9:00 AM EDT - 01/12/2025 12:30 PM EDT Surgery [facility] [place] [address] [place] [phone] Liza Ferreira MD [address] [phone] RIGHT THUMB, INTERPOSITIONAL ARTHROPLASTY [[id number] (CPT??)] 01/20/2025 9:30 AM EDT Office Visit Orthopedic Surgery - [place] [address] [phone] Savi Armenta PA [address] [phone] Scheduled Procedures Name Priority Associated Diagnoses Date/Ti me ARTHROPLASTY CARPOMETACARPAL Osteoarthritis of first carpometacarpal joint, unspecified 01/12/2025 9:00 AM EDT TRANSFER TENDON Osteoarthritis of first carpometacarpal joint, unspecified 01/12/2025 9:00 AM EDT Health Maintenance Due Date Last Done Comments Breast Cancer Screening 1955 Zoster Vaccines (1 of 2) 2005 Pneumococcal Vaccine: 50+ Years (2 of 2 - PCV) 04/08/2012 04/08/2011 DTaP,Tdap,and Td Vaccines (2 - Td or Tdap) 09/21/2014 09/21/2004 RSV Immunization Patients 60+ Years Old (1 - Risk 60-74 years 1-dose series) 2015 Colorectal Cancer Screening: Colonoscopy 04/15/2024 Depression Screening 04/15/2024 Falls Risk Assessment 04/15/2024 Hepatitis C Screening 04/15/2024 Medicare Annual Wellness Visit 04/15/2024 Osteoporosis Screening (Bone Density Screening) 04/15/2024 Social Influencers of Health Screening 04/15/2024 COVID-19 Vaccine ( season) 2024 01/03/2022, 08/05/2021, 01/21/2021, Additional history exists Influenza Vaccine Completed 06/21/2024, , 06/23/2022, Additional history exists HIB Vaccines Aged Out No longer eligi [...] patient's age to complete this topic Meningococcal B Vacine Aged Out No lo nger eligible based on patient's age to complete this topic RSV Immunization Patients Under 20 months Aged Out No longer eligible based on patient's age to complete this topic Varicella Vaccines Aged Out No longer eligible based on patient's age to complete this topic Procedures Procedure Name Priority Date/Time Associated Diagnosis Comments [place] ARTHROCENTESIS/ASPI RATION/INJECTION MAJOR JOINT/BURSA W/O U/S GUIDANCE Routine 11/07/2024 10:00 AM EST Acute pain of left shoulder XR SHOULDER 2+ VIEWS LEFT Routine 11/07/2024 9:58 AM EST Pain from Last 3 Months Results * [place] ARTHROCENTESIS/ASPIRATION/INJECTION MAJOR JOINT/BURSA W/O U/S GUIDANCE (11/07/2024 [...] Savi ECHAVARRIA IN CLINIC/BEDSIDE ORDERABLES Final Result * XR Shoulder 2+ Views Left (11/07/2024 9:58 AM EST) Anatomical Region Laterality Modality Upper Extremities, Shoulder Left Comp uted Radiography Narrative 11/07/2024 12:18 PM EST Date of Visit: 11/07/2024 Reason for visit: Left shoulder pain Views: AP, Grashey, Y, axillary left shoulder Comparison: None Findings: No fracture, dislocation or lytic lesions. ??Narrowing of subacromial space and slight proximal migration of humeral head. ??No significant arthritis. ??Diffuse osteopenia. ??No calcifications. Impression: Narrowing of subacromial space. ??No acute findings us Savi ECHAVARRIA IMG XR PROCEDURES Edited Resu lt - Final from Last 3 Months Insurance MEDICARE [facility] Care Teams Textile Conservator Relationship Specialty Start Date End Date Daniel García MD [address] [place] [address] [address] [facility] [place] [address] PCP - General 02/16/24
== END 2024-11-09 10:03 | disposition home or self-care (01) ==
PROVIDERS: PCP Internal Medicine; Visit Provider Physician Assistant
DX: J01.00 Acute maxillary sinusitis, unspecified (principal); H61.21 Impacted cerumen, right ear

== ENCOUNTER 2024-11-09 09:16 | Outpatient (REF) | payer MEDICARE, SELFPAY ==
--- OUTSIDE RECORDS SUMMARY | 2024-11-09 10:04 | XMS_ITS | Encounter Summary ---
Author Organization [facility] Address [address] [place] [phone] Care Team Providers Care Mortgage Or Loan Underwriter Name Role Phone Daniel García MD Primary Care Provider [phone] Reason for Visit * Reason Onset Date Comments cancel pre op today 10/18/2024 Encounter Details Date Type Department Care Team ([facility] st Contact Info) Description 10/18/2024 Telephone Orthopedic Surgery - [place] 250 175 [facility] 250 [place] [address] Liza Ferreira MD 175 [facility] 140 [place] [address] cancel pre op today Social [...] is . Please call her back @ [phone] . Thanks. documented in this encounter Plan of Treatment Upcoming Encounters Date Type Department Care Team (Latest Contact Info) Description 12/19/2024 11:00 AM EDT Consult Orthopedic Surgery - [place] [address] [phone] Liza Ferreira MD [address] [phone] 01/12/2025 9:00 AM EDT Hospital Encounter [facility] [place] [address] [place] [phone] Liza Ferreira MD [address] [phone] 01/12/2025 9:00 AM EDT - 01/12/2025 12:30 PM EDT Surgery [facility] [place] [address] [place] [phone] Liza Ferreira MD [address] [phone] RIGHT THUMB, INTERPOSITIONAL ARTHROPLASTY [[id number] (CPT??)] 01/20/2025 9:30 AM EDT Office Visit Orthopedic Surgery - [place] [address] [phone] Savi Armenta PA [address] [phone] Scheduled Procedures Name Priority Associated Diagnoses Date/Ti me ARTHROPLASTY CARPOMETACARPAL Osteoarthritis of first carpometacarpal joint, unspecified 01/12/2025 9:00 AM EDT TRANSFER TENDON Osteoarthritis of first carpometacarpal joint, unspecified 01/12/2025 9:00 AM EDT documented as of this encounter Visit Diagnoses Not on filedocumented in this encounter Care Teams Mortgage Or Loan Underwriter Relationship Specialty Start Date End Date Daniel García MD [address] [place] [address] [address] [facility] [place] [address] PCP - General 02/16/24 documented as of this encounter
--- OUTSIDE RECORDS SUMMARY | 2024-11-09 10:04 | XMS_ITS | Clinical Summary ---
Author Organization [facility] Address [address] [place] [address] Phone Care Team Providers Care District Leader Name Role Phone Daniel García MD Primary Care Provider Allergies Active Allergy Reactions Criticality Noted Date [...] AM EST Office Visit Orthopedic Surgery - [place] 175 [facility] [address] [place] [address] Savi Armenta PA Acute pain of left shoulder (Primary Dx) 10/18/2024 Telephone Orthopedic Surgery [facility] 250 [address] [facility] [address] [place] [address] Liza Ferreira MD cancel pre op today from Last 3 Months Surgical History Surgery Date Site/Laterality Comments HAND SURGERY 2002 Left PROCEDURE: HISTORICAL HAND SURGERY; COMMENT: thumb [facility] Medical History Medical History Date Comments COPD (chronic obstructive pu lmonary disease) ([facility]/HCC) DX:COPD (chronic obstructive pulmonary disease) ([facility]) PONV (postoperative nausea and vomiting) Social History [...] 12/19/2024 11:00 AM EDT Consult Orthopedic Surgery [facility] [address] [address] Liza Ferreira MD [address] [phone] 01/12/2025 9:00 AM EDT Hospital Encounter [facility] Main OR [address] [place] [address] Liza Ferreira MD [address] [phone] 01/12/2025 9:00 AM EDT - 01/12/2025 12:30 PM EDT Surgery [facility] Main OR [address] [place] [phone] Liza Ferreira MD [address] [phone] RIGHT THUMB, INTERPOSITIONAL ARTHROPLASTY [[id number] (CPT??)] 01/20/2025 9:30 AM EDT Office Visit Orthopedic Surgery - [place] [address] [address] Savi Armenta PA [address] [address] Scheduled Procedures Name Priority Associated [...] Procedure Name Priority Date/Time Associated Diagnosis Comments SC ARTHROCENTESIS/ASPI RATION/INJECTION MAJOR JOINT/BURSA W/O U/S GUIDANCE Routine 11/07/2024 10:00 AM EST Acute pain of left shoulder XR SHOULDER 2+ VIEWS LEFT Routine 11/07/2024 9:58 AM EST Pain from Last 3 Months Results * SC ARTHROCENTESIS/ASPIRATION/INJECTION MAJOR JOINT/BURSA W/O U/S GUIDANCE (11/07/2024 [...] Final from Last 3 Months Insurance MEDICARE [facility] Care Teams District Leader Relationship Specialty Start Date End Date Daniel García MD [address] [place] [address] [address] [facility] [place] [address] PCP - General 02/16/24
--- OUTSIDE RECORDS SUMMARY | 2024-11-09 10:04 | XMS_ITS | Continuity of Care Document ---
Author Organization [facility] Address [address] [place] [address] Phone Care Team Providers Care Nuclear Weapons Custodian Name Role Phone Franco ARNOLD, RVT, LARRY, [...] Diagnoses Date Provider Providers Copied on Encounter [facility] Veronica GUZMAN, [address] [place] [address] [address]Abimael [place], [id number], [place] tel:[phone] [facility] Encounter for cosmetic surgery 4 Franco ARNOLD RVT, RPVI Robert. [address] [place] [address], [facility] [place] [id number], [place]. tel:[phone] Referring Provider: Daniel García MD, [address] [place] [address] [address] [facility], [place], [address]. tel:[phone] Office/Outpt E&M Established 15 Mins- [place] & [place] [facility] MD GUZMAN, [address] [place] [address] Dr [address]ata [address]Abimael [place], [id number], [place] tel:[phone] R [facility] Venous insufficienc y (chronic) (peripheral) 4 Franco ARNOLD RVT, RPVI Robert. [address] [place] [address], [facility] [place] [place], [id number], [place]. tel:[phone] [facility] Veronica ARNOLD [facility], [address] [place] [address] Dr Plata 1000Suite Abimael Ni [place], [id number], [place] tel:[phone] R [facility] Encounter for follow-up examination after completed treatment for conditions other than malignant nePain in left leg 4 Franco ARNOLD RVT, RPVI Robert. [address] [place] [address] [place], [id number], [place]. tel:[phone] Referring Provider: Fredrick Gamez MD, RVT, RPVI, [address] [place] [address], [address]. tel:[phone] [facility] Scientologist MD GUZMAN, [address] [place] [address] Dr [address] 1000Abimael [place], [id number], [place] tel:[phone] [facility] [place] [facility] [place] Encounter for follow-up examination after completed treatment for conditions other than malignant neVaricose veins of left lower extremity with pain 4 Franco ARNOLD RVT, RPVI Robert. [address] [facility], [place] [address], [place], [place], [id number], [place]. tel:[phone] Referring Provider: Fredrick Gamez MD, LARRY DYE, [address] [place] [address], [address]. tel:[phone] [facility], [address] [place] [address] [address] 1000bAimael MD, [id number], [place] tel:[phone] [facility] [place] [facility] [place] Varicose veins of left lower extremity with other complication s 4 Mathew Wick. [address] [place] [address], [place], [place], [id number], [place]. tel:[phone] Referring Provider: Shamika Carmona NP, [address] [place] [address], [address]. tel:[phone] [facility], [address] [place] [address] [address] 1000Abimael [place], [id number], [place] tel:[phone] [facility] [place] Encounter for follow-up examination after completed treatment for conditions other than malignant neoplasmPain in left leg 4 Franco ARNOLD RVT, RPVI Robert. [address] [place] [address], [place], [place], [id number], [place]. tel:[phone] Referring Provider: Daniel García MD, [address] [place] [address] Dr [address] [facility], [place], [address]. tel:[phone] [facility], [address] [place] [address] [address] 1000Abimael [place], [id number], [place] tel:[phone] [facility] [place] [facility] [place] Varicose veins of left lower extremity with other complication s 4 Franco ARNOLD RVT, RPVI Robert. [address] [place] [address], [place], [place], [id number], [place]. tel:[phone] Offic/outpt E&m Estab 5 Min Trial- Telemedicine CT & [place] [facility], [address] [place] [address] Dr [address]ata [address] 1000Abimael MD, [id number], [place] tel:[phone] [facility] [place] Cramp and spasmVenous insufficienc y (chronic) (peripheral) Pruritus, unspecified 4 Mallika Mercedes[address] [place] [address], [place], [place], [id number], [place]. tel:[phone] [facility], [address] [place] [address] Dr Plata [facility] 1000Abimael [place], [id number], [place] tel:[phone] [facility] [place] No Information 4 Franco ARNOLD RVT, LARRY [place]. [address] [place] [address], [facility] letaENCAMPMENT, [place], [id number], [place]. tel:[phone] Office/Oupt E&M New Pt 45 Mins- [place] & [place] [facility], [address] [place] [address] Dr [address] 1000Abimael [place], [id number], [place] tel:[phone] [facility] [place] Varicose veins of bilateral lower extremities with other complication sCramp and spasm 4 Franco ARNOLD RVT, LARRY [place]. [address] [place] [address], [facility] [place], [id number], [place]. tel:[phone] [facility], [address] [place] [address] Dr [address] 1000Abimael [place], [id number], [place] tel:[phone] [facility] - [place] [facility] [place] Chronic venous hypertension (idiopathic) with other complication s of left lower extremity 4 Franco ARNOLD RVT, LARRY [place]. [address] [place] [address], [facility] [place], [id number], [place]. tel:[phone] Referring Provider: Fredrick Gamez MD, RVT, RPVI, [address] [facility] [address], [place], [address]. tel:[phone] Family History Family Member Type Diagnosis Age At Onset No Information Payers Payer name Insurance type Covered constitution party ID Authoriza tion(s) Medicare DOMINGA NELSON [id number] BCBS DOMINGA JOSIAS [id number] Social History Type Description Quantity Date Captured [...] B luciano mass index (BMI) 30.0-30.9, adult Patient education booklet given Related to Varicose veins of bilateral lower extremities with other complications Pre and post instruc tions reviewed and provided Related to Varicose veins of bilateral lower extremities with other complications Assessments Type Assessment Date assessment Encounter for cosmetic surgery O Patient Care Teams Name Effective Dates (start - stop) Status Members No Information
--- OUTSIDE RECORDS SUMMARY | 2024-11-09 10:04 | XMS_ITS | Encounter Summary ---
Author Organization [facility] Address [id number] [place] [address] Care Team Providers Care Pet Adoption Counselor Name Role Phone Daniel García MD Primary Care Provider [phone] Reason for Referral * Orthopedic (Routine) - Authorized Specialty Diagnoses / Procedures Referred By Contjosseline t Referred To Contact Orthopedic Surgery / Orthopaedic Surgery Diagnoses Acute pain of left shoulder Procedures L Inj/Asp: L subacromial bursa Savi Armenta PA [address] [facility] [address] [address] Phone: tel: fax: Referral ID Status Reason Start Date Expiration Date V isits Requested Visits Authorized [id number] Authorized 11/07/2024 11/07/2025 1 1 Reason for Visit * Reason Comments Pain Encounter Details Date Type Department Care Team (Late st Contact Info) Description 11/07/2024 10:00 AM EST Office Visit Orthopedic Surgery - [place] [address] [facility] [address] [place] [address] Savi Armenta PA 174 [facility] Alex [address] [place] [phone] Acute pain of left shoulder (Primary [...] 2002 PROCEDURE: HISTORICAL HAND SURGERY; COMMENT: thumb [facility] MEDICATIONS DISCONTINUED/REORDERED: There are no discontinued medications. [...] 11:00 AM EDT Consult Orthopedic Surgery - [address] [phone] Liza Ferreira MD [address] [place] [phone] 01/12/2025 9:00 AM EDT Hospital Encounter [facility] OR [address] [place] [phone] Liza Ferreira MD [address] [place] [phone] 01/12/2025 9:00 AM EDT - 01/12/2025 12:30 PM EDT Surgery [facility] OR [address] [place] [phone] Liza Ferreira MD [address] [place] [phone] RIGHT THUMB, INTERPOSITIONAL ARTHROPLASTY [[id number] (CPT??)] 01/20/2025 9:30 AM EDT Office Visit Orthopedic Surgery - [place] [address] [place] [address] Savi Armenta PA [address] [place] [phone] Scheduled Procedures Name Priority Associated Diagnoses Date/Ti me ARTHROPLASTY CARPOMETACARPAL Osteoarthritis of first carpometacarpal joint, unspecified 01/12/2025 9:00 AM EDT TRANSFER TENDON Osteoarthritis of first carpometacarpal joint, unspecified 01/12/2025 9:00 AM EDT documented as of this encounter Procedures Procedure Name Priority Date/Time Associated Diagnosis Comments WI ARTHROCENTESIS/ASPI RATION/INJECTION MAJOR JOINT/BURSA W/O U/S GUIDANCE Routine 11/07/2024 10:00 AM EST Acute pain of left shoulder documented in this encounter Results * WI ARTHROCENTESIS/ASPIRATION/INJECTION MAJOR JOINT/BURSA W/O U/S GUIDANCE (11/07/2024 [...] mg documented in this encounter Care Teams Pet Adoption Counselor Relationship Specialty Start Date End Date Po, MD Daniel [address] [place] [address] [address] [facility] [place] [address] PCP - General 02/16/24 documented as of this encounter
[2024-11-09 14:15] LABS: Influenza A PCR NEGATIVE (Negative); Influenza B PCR NEGATIVE (Negative); Resp Syncy Virus RNA Qual PCR NEGATIVE (Negative); SARS COV2 PCR INHOUSE NEGATIVE (Negative)
== END 2024-11-09 09:17 | disposition home or self-care (01) ==
LOC: HO.LAB 09:16
PROVIDERS: PCP Internal Medicine; Visit Provider Physician Assistant
DX: J32.9 Chronic sinusitis, unspecified (principal); H61.21 Impacted cerumen, right ear; R05.8 Other specified cough
CPT/HCPCS: 0241U; 69210; 99212

== ENCOUNTER 2024-12-07 09:36 | Outpatient (AMB) | payer MEDICARE, SELFPAY ==
[2024-12-07 09:48] VITALS: BP 130/80; TEMP 36.2; BMI 28.2
--- NOTE | 2024-12-07 09:48 | MHC.PC.OV ---
Vital Signs 12/07/24 09:48 Height 5 ft 1 in Weight 149 lb BMI 28.2 BP 130/80 Temp 97.1 F Temp Source Temporal Artery Scan Intake Visit Reasons: COPD Intake Note: Patient is here to follow up on COPD. 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 Cafeteria Server: Present Accompanied by: Spouse Allergies doxycycline Allergy (Intermediate, Verified 11/09/24 09:26) unknown meperidine [Demerol] Allergy (Intermediate, Verified 11/09/24 09:26) nausea and vomiting morphine [MORPHINE] Allergy (Intermediate, Verified 11/09/24 09:26) NAUSEA & VOMITING, nausea and vomiting oxycodone [OXYCODONE] Allergy (Intermediate, Verified 11/09/24 09:26) NAUSEA & VOMITING sulfamethoxazole [From Bactrim] Adverse Reaction (Intermediate, Verified 11/09/24 09:26) Rash trimethoprim [From Bactrim] Adverse Reaction (Intermediate, Verified 11/09/24 09:26) Rash OxyContin Allergy (Unknown, Uncoded 11/09/24 09:26) nausea and vomiting Tobacco use date assessed: 10/18/24 Fall risk assessment: No Falls in past year Last assessed Fall Risk: 12/07/24 Dental Screening Dental Screen Date: 12/07/24 Did you have a dental visit in the last 12 months?: Yes Did you have a dental problem in the last 6 months where you did not have access to dental care?: No Was dental information given to patient?: Patient has dentist [facility] Medical History Generalized anxiety disorder Right rib fracture Hypercholesterolemia Allergic rhinitis COPD (chronic obstructive pulmonary disease) Surgical History History of pubovaginal sling History of repair of rotator cuff History of ankle surgery History of tonsillectomy History of tubal ligation Family History Father CVD (cardiovascular disease) Myocardial infarction Mother Hypertension Sister No problems noted. Son No problems noted. Son No problems noted. Daughter No problems noted. Daughter No problems noted. Social History Housing: House Alcohol intake: never Patient Tobacco Use Status: Former Tobacco user Tobacco use type: Cigarette e-Cigarette/Vaping Use: Never Used Second Hand Smoke Exposure: Yes service: No Current occupational status: retired Current occupation: rt hand Cognitive needs: No Hearing needs: No Vision needs: Yes Questionnaire Thrive Questionnaire Date Thrive assessed: 10/18/24 KENZIE-7 AMB Questionnaire KENZIE-7 Date KENZIE - 7 assessed: 10/18/24 Source: Developed by Drs. Fredrick Peter, Ashwini Mckeon, Isma Santiago and colleagues, with an educational albino from [employer]. Physical exam (Primary Care) Vital Signs: Last Vital Signs Temp 97.1 F 12/07/24 09:48 BP 130/80 12/07/24 09:48 BMI result Body Mass Index 28.2 Tobacco/Smoking Status: Tobacco use Status Tobacco use date assessed 10/18/24 12/07/24 09:49 Patient Tobacco Use Status Former Tobacco user 12/07/24 09:49 Tobacco use type Cigarette 12/07/24 09:49 e-Cigarette/Vaping Use Never Used 12/07/24 09:49 Thrive Assessment: Date of Thrive Assessment Date Thrive assessed 10/18/24 12/07/24 09:49 Const General: alert; No acute distress Eyes Conjunctivae: conjunctivae normal Resp Auscultation: clear to auscultation bilaterally Cardio Rate: regular rate Rhythm: regular rhythm GI Inspection: Yes normal to inspection Extrem General: Yes normal to inspection and No edema Coding Level of Care Code Est Pt Level 4 (39745) Complex EM visit Add On G2211 Diagnoses 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 Emphysema type: panlobular Hypercholesterolemia E78.00 Impaired fasting glucose R73.01 Generalized anxiety disorder F41.1 Overweight (BMI 25.0-29.9) E66.3 Mammogram declined Z53.20 Osteoporosis M81.0 Facial dermatitis L30.9 Assessment & Plan Assessment & Plan (1) Arthritis of finger: Code(s): M19.049 - Primary osteoarthritis, unspecified hand Category: Medical Plan: Patient is seeing Orthopedics and planned surgery (2) COPD (chronic obstructive pulmonary disease): Code(s): J44.9 - Chronic obstructive pulmonary disease, unspecified Category: Medical Qualifiers: COPD type: emphysema Emphysema type: panlobular Qualified Code(s): J43.1 - Panlobular emphysema Plan: Continue with Wixela and Combivent (3) Hypercholesterolemia: Code(s): E78.00 - Pure hypercholesterolemia, unspecified Category: Medical Plan: Avoid fried foods, chicken skin, eggs, butter margarine, pastries and meat. Be it pork or beef they have a lot of cholesterol LDL goal of less than 130 and triglyceride of less than 150 (4) Impaired fasting glucose: Code(s): R73.01 - Impaired fasting glucose Category: Medical Plan: Decrease the amount of carbohydrate intake, pasta, bread, rice and potatoes are all sugar and that is aside from all the sweet stuff, remember that fruits are good but they are Sweet also. (5) Generalized anxiety disorder: Comment: Maria Teresa Santos once a year counselling Code(s): F41.1 - Generalized anxiety disorder Category: Medical Plan: Continue with counseling and therapy (6) Overweight (BMI 25.0-29.9): Code(s): E66.3 - Overweight Category: Medical Plan: Diet and exercise (7) Mammogram declined: Code(s): Z53.20 - Procedure and treatment not carried out because of patient's decision for unspecified reasons Category: Medical Plan: Discussed about importance of preventive mammograms (8) Osteoporosis: Code(s): M81.0 - Age-related osteoporosis without current pathological fracture Category: Medical Plan: Discussed about bone density (9) Facial dermatitis: Code(s): L30.9 - Dermatitis, unspecified Category: Medical Plan History of Present Illness The patient is a 69-year-old female presenting with concerns mainly involving chronic conditions [id number] infection. She has a complex medical history with COPD, hypercholesterolemia, impaired glucose tolerance, and anxiety disorder, managed with medications like Wixela and Combivent. She had a sinus infection in October, treated with Augmentin, and suffers from ongoing issues with left shoulder pain, diagnosed with subacromial space narrowing and treated with a cortisone injection. Additionally, she had hand x-rays revealing degenerative changes requiring continued orthopedic care. Recent blood tests indicate normal counts but elevated triglycerides and LDL levels, necessitating cholesterol management. Preventive screenings are pending; she will not undergo a colonoscopy at this time but acknowledges the mammogram is due, and her recent bone density scan is up-to-date as of January 2023. Health Maintenance - Declined colonoscopy. - Mammogram is due. - Bone density screening completed in January 2023, up-to-date. - Continued dietary and exercise counseling for impaired glucose tolerance and hypercholesterolemia. - Discussed importance of preventive mammograms. Social History Review of Systems - ENT: Reports sinus infection; wax buildup treated. - Musculoskeletal: Reports left shoulder pain. - Endocrine: Reports elevated blood sugar levels. Physical Exam Results - Labs: August 2024 blood work showed normal blood count, normal electrolytes, normal renal function, elevated blood sugar, normal liver function, elevated LDL and triglycerides; B12, vitamin D, and folic acid levels normal; thyroid functioning normal. - Imaging: X-rays in October showed narrowing of the subacromial space in the shoulder and severe degenerative changes in the first carpometacarpal joint, moderate changes in the IP and MCP joints of the thumb. Plan The patient will continue using Wixela and Combivent for COPD management. Her cholesterol will be managed by maintaining an LDL goal of less than 130 and a triglyceride level below 150 through diet and exercise counseling. For impaired glucose tolerance, we aim to manage her condition with lifestyle changes emphasizing diet and exercise. We have reinforced the importance of preventive mammograms as her colonoscopy was declined. The patient experienced recent left shoulder pain, treated with a cortisone injection and managed by orthopedics, given x-ray findings. Hand arthritis treatment will continue with a possible consultation for surgery. Overall, her chronic conditions will be monitored through regular labs and examination. Patient was informed and verbally consented to the use of an ambient scribe for clinic note documentation during this visit. Discussion Notes I discussed with the patient the importance of continued management of chronic conditions, including her COPD and hypercholesterolemia, emphasizing lifestyle modifications as a saini factor. We reviewed the elevated values seen in her recent labs, specifically LDL and triglycerides, and the usual targets for these. Given her history of impaired glucose tolerance, focusing on diet and exercise was reiterated as a strategy to manage potential diabetes risk. I confirmed the updated status of her vaccinations and screenings, and we discussed the next steps for pending mammogram screening. The importance of adherence to therapies for her anxiety disorder and peripheral vascular disease was also reinforced. In terms of her musculoskeletal complaints, orthopedic management will continue for her left shoulder pain and hand arthritis, with potential surgical options being discussed as needed. We agreed on ongoing follow-ups tailored to her findings and preferences. Patient Instructions - Continue using Wixela and Combivent as prescribed. - Follow the diet and exercise recommendations to manage cholesterol and blood sugar. - Ensure a mammogram is scheduled and completed. - Continue with physical therapy for the left shoulder. - Monitor for any new symptoms or increased pain and report them promptly. - Adhere to prescribed medication regimes. - Attend all follow-up appointments. History of Present Illness The patient is a 69-year-old female presenting for a wellness visit. The laboratory assessment of the patient?s blood glucose reflected a borderline elevation at 105 mg/dL, which is higher than the intended normal value but not indicative of diabetes. In terms of lipid profile, a mild elevation in triglycerides was noted at 157 mg/dL, which is slightly above the desired level of below 150 mg/dL. All other laboratory results, including cholesterol levels, were within acceptable limits, with her high-density lipoprotein cholesterol at a protective level of 74 mg/dL. Other assessments such as the complete blood count, electrolyte panel, and essential vitamins were within the normal range. Plan The evaluation during the wellness visit focused on slight triglyceride elevation, which may benefit from dietary recommendations and consistent exercise to ensure optimal triglyceride levels and prevent future complications. The borderline blood glucose elevation was acknowledged, and it will necessitate vigilant monitoring, aiming to avoid progression to prediabetes while embracing lifestyle interventions. The patient?s comprehensive wellness goals were discussed, including continued attention to routine laboratory investigations and lifestyle modifications. The patient was informed of the importance of continued surveillance for these minor lab variances during her health maintenance regimen. Patient was informed and verbally consented to the use of an ambient scribe for clinic note documentation during this visit. Orders: Referrals Dermatology Referral L30.9 - Dermatitis, unspecified
--- OUTSIDE RECORDS SUMMARY | 2024-12-07 10:40 | XMS_ITS | Encounter Summary ---
Author Organization [facility] Address [id number] [place] [phone] Care Team Providers Care Web Art Director Name Role Phone Daniel García MD Primary Care Provider [phone] Reason for Visit * Reason Onset Date Comments cancel pre op today 10/18/2024 Encounter Details Date Type Department Care Team ([facility] st Contact Info) Description 10/18/2024 Telephone Orthopedic Surgery - [place] 250 175 [facility] [address] [place] [address] Liza Ferreira MD 175 [facility] [address] [place] [address] cancel pre op today Social [...] is . Please call her back @ [phone] . Thanks. documented in this encounter Plan of Treatment Upcoming Encounters Date Type Department Care Team (Latest Contact Info) Description 12/19/2024 11:00 AM EDT Consult Orthopedic Surgery - [place] [address] [phone] Liza Ferreira MD [address] [phone] 01/12/2025 9:00 AM EDT Hospital Encounter [facility] [place] [address] [place] [phone] Liza Ferreira MD [address] [phone] 01/12/2025 9:00 AM EDT - 01/12/2025 12:[address] [facility] [place] [address] [place] [phone] Liza Ferreira MD [address] [phone] RIGHT THUMB, INTERPOSITIONAL ARTHROPLASTY [[id number] (CPT??)] 01/20/2025 9:30 AM EDT Office Visit Orthopedic Surgery - [place] [address] [phone] Savi Armenta PA [address] [phone] Scheduled Procedures Name Priority Associated Diagnoses Date/Ti me ARTHROPLASTY CARPOMETACARPAL Osteoarthritis of first carpometacarpal joint, unspecified 01/12/2025 9:00 AM EDT TRANSFER TENDON Osteoarthritis of first carpometacarpal joint, unspecified 01/12/2025 9:00 AM EDT documented as of this encounter Visit Diagnoses Not on filedocumented in this encounter Care Teams Web Art Director Relationship Specialty Start Date End Date Daniel García MD [address] [place] [address] [address] [facility] [place] [address] PCP - General 02/16/24 documented as of this encounter
--- OUTSIDE RECORDS SUMMARY | 2024-12-07 10:40 | XMS_ITS | Encounter Summary ---
Author Organization [facility] Address [address] [place] [address] Care Team Providers Care Chemical Dependency Attendant Name Role Phone Daniel García MD Primary Care Provider [phone] Reason for Referral * Orthopedic (Routine) - Authorized Specialty Diagnoses / Procedures Referred By Contjosseline t Referred To Contact Orthopedic Surgery / Orthopaedic Surgery Diagnoses Acute pain of left shoulder Procedures L Inj/Asp: L subacromial bursa Savi Armenta PA 174 [facility] [address] [address] Phone: tel: fax: Referral ID Status Reason Start Date Expiration Date V isits Requested Visits Authorized [id number] Authorized 11/07/2024 11/07/2025 1 1 Reason for Visit * Reason Comments Pain Encounter Details Date Type Department Care Team (Late st Contact Info) Description 11/07/2024 10:00 AM EST Office Visit Orthopedic Surgery - [place] 175 [facility] [address] [place] [phone] Savi Armenta PA 174 [facility] [address] [place] [phone] Acute pain of left shoulder (Primary [...] 2002 PROCEDURE: HISTORICAL HAND SURGERY; COMMENT: thumb [facility] MEDICATIONS DISCONTINUED/REORDERED: There are no discontinued medications. [...] 11:00 AM EDT Consult Orthopedic Surgery - [address] [phone] Liza Ferreira MD [address] [place] [phone] 01/12/2025 9:00 AM EDT Hospital Encounter [facility] OR [address] [place] [phone] Liza Ferreira MD [address] [place] [phone] 01/12/2025 9:00 AM EDT - 01/12/2025 12:30 PM EDT Surgery [facility] OR [address] [place] [phone] Liza Ferreira MD [address] [place] [phone] RIGHT THUMB, INTERPOSITIONAL ARTHROPLASTY [[id number] (CPT??)] 01/20/2025 9:30 AM EDT Office Visit Orthopedic Surgery - [place] [address] [place] [address] Savi Armenta PA [address] [place] [phone] Scheduled Procedures Name Priority Associated Diagnoses Date/Ti me ARTHROPLASTY CARPOMETACARPAL Osteoarthritis of first carpometacarpal joint, unspecified 01/12/2025 9:00 AM EDT TRANSFER TENDON Osteoarthritis of first carpometacarpal joint, unspecified 01/12/2025 9:00 AM EDT documented as of this encounter Procedures Procedure Name Priority Date/Time Associated Diagnosis Comments [place] ARTHROCENTESIS/ASPI RATION/INJECTION MAJOR JOINT/BURSA W/O U/S GUIDANCE Routine 11/07/2024 10:00 AM EST Acute pain of left shoulder documented in this encounter Results * [place] ARTHROCENTESIS/ASPIRATION/INJECTION MAJOR JOINT/BURSA W/O U/S GUIDANCE (11/07/2024 [...] mg documented in this encounter Care Teams Chemical Dependency Attendant Relationship Specialty Start Date End Date Po, MD Daniel [address] [place] [address] [address] [facility] [place] [address] PCP - General 02/16/24 documented as of this encounter
--- OUTSIDE RECORDS SUMMARY | 2024-12-07 10:40 | XMS_ITS | Continuity of Care Document ---
Author Organization [facility] Address [address] [place] [phone] Care Team Providers Care Annealing Operator Name Role Phone Daniel García MD Primary Care Physician Encounter [facility] AC[facility] R [id number] Date(s): 07/28/24 - 11/25/24 [facility] [address] [place] [address]- Attending Physician: Elliot Rodriguez MD Admitting Physician: Elliot Rodriguez MD Referring Physician: Daniel García MD Encounter Type: Pre-OutPatient One Time Allergies, Adverse Reactions, Alerts Substance Criticality Severity Reaction Reaction Severity Status doxycycline Active morphine Active Demerol Active sulfa drugs Active Immunizations Given and Recorded Vaccine Date Status Refusal Reason pneumococcal 23-valent vaccine 1 04/08/11 Given tetanus-diphtheria toxoids (Td) 09/21/04 Given 1Admin Note: vis given 06/26/09 Medications air chamber air chamber, with albuterol, By Mouth, Every 6 hours, PRN sob /wheeze, # 1 applicator, Refills 0, Tot. Refills 0, Maintenance, 05/28/11 9:40:16 AM EDT Start Date: 05/28/11 Status: Ordered Quantity: 1.0 Unit: applicator Repeat number: 1 albuterol 0.083% inhalation solution 3 mL = 2.5 mg, Inhalation, Every 6 hours, J44.9, # 360 mL, 3 Refills, Maintenance, 12/19/22 2:03:00 PM EDT, Solution, [id number], Partial fill upon patient request if the prescription is for aschedule II opioid drug., 154.94, cm, 12/24/21 10:52:00 EDT, Height Start Date: 12/19/22 Status: Ordered Quantity: 360.0 Unit: mL Repeat number: 4 Combivent Respimat 20 mcg-100 mcg/inh inhalation aerosol 1 puffs, Inhalation, 4 times a day, # 12 mL, 3 Refills, Maintenance, 07/18/24 9:04:00 AM EDT, [id number], 90, 1 PUFFS INHALATION 4 TIMES A DAY, 154.94, cm, 06/16/23 10:56:00 EDT, Height Start Date: 07/18/24 Status: Ordered Quantity: 12.0 Unit: mL Repeat number: 1 diazepam 5 mg oral tablet 5 mg, 1, tablet, By Mouth, 4 times a day, PRN as needed for anxiety, 0 Refills Start Date: 11/05/06 Status: Ordered Repeat number: 1 Flonase 50 mcg/inh nasal spray 1 sprays, Nares, Both, 2 times a day, in each nostril, J44.9, # 16 Gm, 11 Refills, Maintenance, 12/30/18 10:52:00 AM EDT, [place], [id number], 1 sprays Nares, Both 2 times a day,Instr:in each nostril, J44.9 Start Date: 12/30/18 Status: Ordered Quantity: 16.0 Unit: g Repeat number: 12 ipratropium 500 mcg/2.5 mL inhalation solution 500 mcg, 2.5, mL, Neb, 4 times a day, PRN, J44.9, # 300 mL, Refills 5, Tot. Refills 5, Maintenance,12/25/21 9:29:00 AM EDT, Solution, Route to Pharmacy Electronically, [id number], [facility][id number], 154.94, cm, 12/24/21 10:52:00 EDT, Height Start Date: 12/25/21 Status: Ordered Quantity: 300.0 Unit: mL Repeat number: 6 Nebulizer/Compressor See Instructions, PRN, # 1 inhalation, Refills 1, Tot. Refills 1, Maintenance, Dyspnea, 3 ml nebs of albuterol/ipratropium every 4 h as needed for wheezing and dyspnea, 12/03/11 9:49:25 AM EDT Start Date: 12/03/11 Status: Ordered Quantity: 1.0 Unit: inhalation Repeat number: 2 ProAir HFA 90 mcg/inh inhalation aerosol with adapter 2 puffs, Inhalation, Every 6 hours, PRN for wheezing, # 1 each, 3 Refills, Maintenance, 03/17/13 2:06:25 PM EDT, Aerosol, [id number] Start Date: 03/17/13 Stop Date: 07/15/13 Status: Ordered Quantity: 1.0 Unit: each Repeat number: 4 Singulair 10 mg oral tablet 10 mg, 1, tablet, By Mouth, Daily, Refills 0, Maintenance, 06/24/17 9:38:34 AM EDT Start Date: 06/24/17 Status: Ordered Repeat number: 1 Ventolin HFA 108 mcg/inh inhalation aerosol with adapter 2 puffs, Inhalation, 4 times a day, PRN Wheezing/Shortness of Breath, 0 Refills, Maintenance, 06/24/17 9:38:18 AM EDT Start Date: 06/24/17 Status: Ordered Repeat number: 1 Wixela Inhub 250 mcg-50 mcg inhalation powder 1 puffs, Inhalation, 2 times a day, AND THROAT AFTER USE., # 180 each, 3 Refills, Maintenance, 09/29/24 11:31:00 AM EST, [id number], 90, INHALE 1 PUFF 2 TIMES A DAY,FOR 90 DAYS,RINSE MOUTH AND THROAT AFTER USE, 154.94, cm, 06/16/23 10:56:00 EDT, Height Start Date: 09/29/24 Stop Date: 12/28/24 Status: Ordered Quantity: 180.0 Unit: each Repeat number: 1 Problem List Condition Confirmation Course Effective Dates Status Health St atus Informant Acute bronchitis Confirmed 08/22/11 Active Anxiety Confirmed Active Fibromyalgia Confirmed Active Social History Social History Type Response Smoking Status Former smoker entered on: 06/24/17 Sex Female Sex Representation Female (finding) Patient Care team information Care Team Personnel Name: Daniel García MD Position: Reference Physician Member Role: PCP Address: [address] [place] [address] Telecom: Care Team Related Persons Name: RACIEL WANG Insurance Providers Guarantor name: SYLVIA WANG Health Plan Information #: 1 Payer: MEDICARE PART B OUTPT Member Number: [id number] Policy Number: NA Group Number: KYLIE Health Plan Information #: 2 Payer: MEDEX Member Number: [id number] Policy Number: NA Group Number: [id number]
--- OUTSIDE RECORDS SUMMARY | 2024-12-07 10:40 | XMS_ITS | Clinical Summary ---
Author Organization [facility] Address [address] [place] [address] Phone Care Team Providers Care Degreaser Operator Name Role Phone Daniel García MD Primary Care Provider [phone] Allergies Active Allergy Reactions Criticality Noted Date [...] mg tablet Take by mouth. Activ e Encounters Date Type Department Care Team Description 11/07/2024 10:00 AM EST Office Visit Orthopedic Surgery [facility] 175 [facility] [address] [place] [address] Savi Armenta PA Acute pain of left shoulder (Primary Dx) 10/18/2024 Telephone Orthopedic Surgery [facility] 250 175 [facility] [address] [place] [address] Liza Ferreira MD cancel pre op today from Last 3 Months Surgical History Surgery Date Site/Laterality Comments HAND SURGERY 2002 Left PROCEDURE: HISTORICAL HAND SURGERY; COMMENT: thumb [facility] Medical History Medical History Date Comments COPD (chronic obstructive pu lmonary disease) ([facility]) DX:COPD (chronic obstructive pulmonary disease) ([facility]) PONV (postoperative nausea and vomiting) Social History [...] 11:00 AM EDT Consult Orthopedic Surgery - [place] [address] [phone] Liza Ferreira MD [address] [phone] 01/12/2025 9:00 AM EDT Hospital Encounter [facility] OR [address] [place] [phone] Liza Ferreira MD [address] [phone] 01/12/2025 9:00 AM EDT - 01/12/2025 12:30 PM EDT Surgery [facility] [place] [address] [place] [phone] Liza Ferreira MD [address] [phone] RIGHT THUMB, INTERPOSITIONAL ARTHROPLASTY [[id number] (CPT??)] 01/20/2025 9:30 AM EDT Office Visit Orthopedic Surgery - [place] 175 [facility] [address] [place] [address] Savi Armenta PA [address] [place] [address] Scheduled Procedures Name Priority Associated Diagnoses [...] Procedure Name Priority Date/Time Associated Diagnosis Comments [place] ARTHROCENTESIS/ASPI RATION/INJECTION MAJOR JOINT/BURSA W/O U/S GUIDANCE Routine 11/07/2024 10:00 AM EST Acute pain of left shoulder XR SHOULDER 2+ VIEWS LEFT Routine 11/07/2024 9:58 AM EST Pain from Last 3 Months Results * [place] ARTHROCENTESIS/ASPIRATION/INJECTION MAJOR JOINT/BURSA W/O U/S GUIDANCE (11/07/2024 [...] ?? Verbal ??Pre-procedure timeout performed: yes ?? Savi [facility]/BEDSIDE ORDERABLES Final Result [...] Final from Last 3 Months Insurance MEDICARE [facility] Care Teams Degreaser Operator Relationship Specialty Start Date End Date Daniel García MD [address] [place] [address] [address] [facility] [place] [address] PCP - General 02/16/24
== END 2024-12-07 10:43 | disposition home or self-care (01) ==
LOC: HO.HMCH 09:36
PROVIDERS: PCP Internal Medicine; Visit Provider Internal Medicine
DX: M19.049 Primary osteoarthritis, unspecified hand (principal); J43.1 Panlobular emphysema; E78.00 Pure hypercholesterolemia, unspecified; R73.01 Impaired fasting glucose; F41.1 Generalized anxiety disorder; E66.3 Overweight; Z53.20 Procedure and treatment not carried out because of patient's decision for unspecified reasons; M81.0 Age-related osteoporosis without current pathological fracture; L30.9 Dermatitis, unspecified

== ENCOUNTER → 2024-12-07 09:36 | Outpatient (BNVA) | payer MEDICARE, SELFPAY | PROVIDERS: PCP Internal Medicine; Visit Provider Internal Medicine | DX: J43.1 Panlobular emphysema (principal); E78.00 Pure hypercholesterolemia, unspecified; R73.01 Impaired fasting glucose; F41.1 Generalized anxiety disorder; E66.3 Overweight; M81.0 Age-related osteoporosis without current pathological fracture; L30.9 Dermatitis, unspecified; Z53.20 Procedure and treatment not carried out because of patient's decision for unspecified reasons | CPT/HCPCS: 99212 ==

== ENCOUNTER 2025-04-04 09:25 | Outpatient (AMB) | payer MEDICARE, SELFPAY ==
--- OUTSIDE RECORDS SUMMARY | 2024-06-29 06:30 | XMS_ITS | Continuity of Care Document ---
Author Organization [facility] Address [address] MD [place] [address] Phone Care Team Providers Care Dress Finisher Name Role Phone Franco ARNOLD, RVT, LARRY, [...] Diagnoses Date Provider Providers Copied on Encounter [facility] Veronica GUZMAN, [address] [place] [address] Dr [address] 1000[address] 1000Abimael MD, [id number], [place] tel:[phone] [facility] Encounter for cosmetic surgery 4 Franco ARNOLD RVT, RPVI Robert. [address] [place] [address], [facility] [place], [id number], [place]. tel:[phone] Referring Provider: Daniel García MD, [address] [place] [address] [address] [facility], [place], [address]. tel:[phone] Office/Outpt E&M Established 15 Mins- CT & [place] [facility] MD GUZMAN, [address] [place] [address] Dr Plata 1000[address] 1000Abimael MD, [id number], [place] tel:[phone] [facility] Venous insufficienc y (chronic) (peripheral) 4 Franco ARNOLD RVT, RPVI Robert. [address] [place] [address], [facility] [place], [id number], [place]. tel:[phone] [facility] Veronica ARNOLD [facility], [address] [place] [address] Dr Plata 1000Suite Abimael Ni MD, [id number], [place] tel:[phone] R [facility] Encounter for follow-up examination after completed treatment for conditions other than malignant nePain in left leg 4 Franco ARNOLD RVT, RPVI Robert. [address] [place] [address] [place], [id number], [place]. tel:[phone] Referring Provider: Fredrick Gamez MD, RVT, RPVI, [address] [place] [address], [address]. tel:[phone] [facility] MD GUZMAN, [address] [place] [address] [address] 1000Suite 1000Abimael MD, [id number], [place] tel:[phone] CV[place] - [place] Encounter for follow-up examination after completed treatment for conditions other than malignant neVaricose veins of left lower extremity with pain 4 Franco ARNOLD RVT, RPVI Robert. [address] [facility], Suite [facility], [place], [place], [id number], [place]. tel:[phone] Referring Provider: Fredrick Gamez MD, MARNIE, LARRY, [address] [place] [address], [place], [address]. tel:[phone] [facility], [address] [place] [address] [address] 1000Abimael MD, [id number], [place] tel:[phone] [facility] - [facility] Encounter for follow-up examination after completed treatment for conditions other than malignant neoplasmPain in left leg 4 Franco ARNOLD RVT, RPVI Robert. [address] [place] [address], [place] [address], [place], [place], [id number], [place]. tel:[phone] Referring Provider: Daniel García MD, [address] [place] [address] Dr [address] [facility], [place], [address]. tel:[phone] [facility], [address] [place] [address] [address] 1000Abimael MD, [id number], [place] tel:[phone] CVR - [facility] Varicose veins of left lower extremity with other complication s 4 Mathew Wick. [facility], Suite [facility], [place], [place], [id number], [place]. tel:[phone] Referring Provider: Shamika Carmona NP, [address] [place] [address], [address]. tel:[phone] [facility], [address] [place] [address] [address] 1000Abimael MD, [id number], [place] tel:[phone] CVR - [facility] Varicose veins of left lower extremity with other complication s 4 Franco ARNOLD RVT, RPVI Robert. [address] [place] [address], [place], [place], [id number], [place]. tel:[phone] Offic/outpt E&m Estab 5 Min Trial- Telemedicine CT & [place] [facility], [address] [place] [address] Dr [address] 1000Suite 1000Abimael MD, [id number], [place] tel:[phone] [facility] - [place] Cramp and spasmVenous insufficienc y (chronic) (peripheral) Pruritus, unspecified 4 Mallika Mercedes. [address] [place] [address], [place], [place], [id number], [place]. tel:[phone] [facility], [address] [place] [address] Dr Plata 1000[facility] 1000Abimael MD, [id number], [place] tel:[phone] [facility] - [place] No Information 4 Franco ARNOLD RVT, LARRY [place]. [address] [place] [address], [facility] [place], [id number], [place]. tel:[phone] Office/Oupt E&M New Pt 45 Mins- CT & [place] [facility], [address] [place] [address] Dr [address] 1000Suite 1000Abimael MD, [id number], [place] tel:[phone] [facility] - [place] Varicose veins of bilateral lower extremities with other complication sCramp and spasm 4 Franco ARNOLD RVT, LARRY [place]. [address] [place] [address], [facility] [place], [id number], [place]. tel:[phone] [facility], [address] [place] [address] [address] 1000Suite 1000Abimael MD, [id number], [place] tel:[phone] CV[place] - [place] Chronic venous hypertension (idiopathic) with other complication s of left lower extremity 4 Franco ARNOLD RVT, LARRY [place]. [address] [place] [address], [facility] [place], [id number], [place]. tel:[phone] Referring Provider: Fredrick Gamez MD, RVT, RPVI, [address] [facility] [address], [place], [address]. tel:[phone] Family History Family Member Type Diagnosis Age At Onset No Information Payers Payer name Insurance type Covered libertarian ID Authoriza tion(s) Medicare DOMINGA NELSON [id number] BCBS DOMINGA JOSIAS [id number] Social History Type Description Quantity Date Captured [...]
--- NOTE | 2025-04-04 09:31 | A.OFFPC_ITS ---
Vital Signs 04/04/25 09:40 Height 5 ft 1 in Weight 148 lb 2 oz BMI 28.0 BP 112/84 Blood Pressure Location Lt brachial Position Sitting Pulse 77 Pulse Source Pulse Oximeter Pulse Oximetry (%) 99 Oxygen Delivery Method Room Air Intake Visit Reasons: 3 month f/u Intake Note: Patient here for a 3 month follow up [employer] Core Feeder Required: No Accompanied by: Spouse Allergies doxycycline Allergy (Intermediate, Verified 04/04/25 09:32) unknown meperidine (Demerol) Allergy (Intermediate, Verified 04/04/25 09:32) nausea and vomiting morphine (MORPHINE) Allergy (Intermediate, Verified 04/04/25 09:32) NAUSEA & VOMITING, nausea and vomiting oxycodone (OXYCODONE) Allergy (Intermediate, Verified 04/04/25 09:32) NAUSEA & VOMITING sulfamethoxazole (From Bactrim) Adverse Reaction (Intermediate, Verified 04/04/25 09:32) Rash trimethoprim (From Bactrim) Adverse Reaction (Intermediate, Verified 04/04/25 09:32) Rash OxyContin Allergy (Unknown, Uncoded 11/09/24 09:26) nausea and vomiting Tobacco use date assessed: 10/18/24 Dental Screening Dental Screen Date: 12/07/24 [facility] Medical History Generalized anxiety disorder Right rib fracture Hypercholesterolemia Allergic rhinitis COPD (chronic obstructive pulmonary disease) Surgical History History of pubovaginal sling History of repair of rotator cuff History of ankle surgery History of tonsillectomy History of tubal ligation Family History Father CVD (cardiovascular disease) Myocardial infarction Mother Hypertension Sister No problems noted. Son No problems noted. Son No problems noted. Daughter No problems noted. Daughter No problems noted. Social History Housing: House Alcohol intake: never Patient Tobacco Use Status: Former Tobacco user Tobacco use type: Cigarette e-Cigarette/Vaping Use: Never Used Second Hand Smoke Exposure: Yes service: No Current occupational status: retired Current occupation: rt hand Cognitive needs: No Hearing needs: No Vision needs: Yes Questionnaire PHQ-9 Over the last 2 weeks, how often have you been bothered by any of the following problems? 1. Little interest or pleasure in doing things: not at all 2. Feeling down, depressed, or hopeless: not at all 3. Trouble falling or staying asleep, or sleeping too much: not at all 4. Feeling tired or having little energy: not at all 5. Poor appetite or overeating: not at all 6. Feeling bad about yourself - or that you are a failure or have let yourself or your family down: not at all 7. Trouble concentrating on things, such as reading the newspaper or watching television: not at all 8. Moving or speaking so slowly that other people could have noticed. Or the opposite - being so fidgety or restless that you have been moving around a lot more than usual: not at all 9. Thoughts that you would be better off or of hurting yourself in some way: not at all Total score: 0 Depression Screening Interpretation: Negative Depression Screening Done: Yes Source: Developed by Drs. Fredrick Peter, Ashwini Mckeon, Isma Santiago and colleagues, with an educational albino from [employer]. Thrive Questionnaire Date Thrive assessed: 04/04/25 I am a: Patient What is your living situation today?: I have a steady place to live Within the past 12 months, did the food you bought not last and you didn't have the money to get more?: I choose not to answer this question Within the past 12 months, did you worry whether your food would run out before you got money to buy more?: I choose not to answer this question Do you have trouble paying for medicines?: I choose not to answer this question Do you have trouble getting transportation to medical appointments?: I choose not to answer this question Do you have trouble paying your heating and electricity bill?: I choose not to answer this question Do you have trouble taking care of your child, family member or friend?: I choose not to answer this question Do you have trouble with day-to-day activities such as bathing, preparing meals, shopping, managing finances, etc.?: I choose not to answer this question Are you currently unemployed and looking for a job?: I choose not to answer this question Are you interested in more education?: I choose not to answer this question Please select the resources that you would like help with: None Currently or been in a relationship where the following occur: I choose not to answer THRIVE Score: 0 AUDIT C Alcohol Use Questionnaire (AUDIT-C) 1. How often do you have a drink containing alcohol?: Never Total Score: 0 KENZIE-7 AMB Questionnaire KENZIE-7 Date KENZIE - 7 assessed: 04/04/25 Feeling nervous, anxious, or on edge: 0 = Not at all Not being able to stop or control worryin = Not at all Worrying too much about different things: 0 = Not at all Trouble relaxin = Not at all Being so restless that it is hard to sit still: 0 = Not at all Becoming easily annoyed or irritable: 0 = Not at all Feeling afraid as if something awful might happen: 0 = Not at all Total KENZIE-7 score (0-4 normal; 5-9 mild; 10-14 moderate; 15-21 severe): 0 Source: Developed by Drs. Fredrick Peter, Ashwini Mckeon, Isma Santiago and colleagues, with an educational albino from [employer]. Physical exam (Primary Care) Vital Signs: Last Vital Signs Pulse 77 04/04/25 09:40 BP 112/84 04/04/25 09:40 Pulse Ox 99 04/04/25 09:40 Oxygen Delivery Method Room Air 04/04/25 09:40 BMI result Body Mass Index 28.0 Tobacco/Smoking Status: Tobacco use Status Tobacco use date assessed 10/18/24 04/04/25 09:32 Patient Tobacco Use Status Former Tobacco user 04/04/25 09:32 Tobacco use type Cigarette 04/04/25 09:32 e-Cigarette/Vaping Use Never Used 04/04/25 09:32 PHQ-9: PHQ-9 Score PHQ-9: Total score 0 04/04/25 10:01 Depression Screening Interpretation: Negative Thrive Assessment: Date of Thrive Assessment Date Thrive assessed 04/04/25 04/04/25 09:32 Currently or been in a relationship where the following occur: I choose not to answer Const General: alert; No acute distress Eyes Conjunctivae: conjunctivae normal Resp Auscultation: clear to auscultation bilaterally Cardio Rate: regular rate Rhythm: regular rhythm GI Inspection: Yes normal to inspection Extrem General: Yes normal to inspection and No edema Coding Level of Care Code Est Pt Level 4 (66621) Complex EM visit Add On G2211 Diagnoses Impaired fasting glucose R73.01 Overweight (BMI 25.0-29.9) E66.3 Osteoporosis M81.0 Arthritis of carpometacarpal (CMC) joint of right thumb M18.11 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 Emphysema type: panlobular Generalized anxiety disorder F41.1 Assessment & Plan Assessment & Plan (1) Impaired fasting glucose: Code(s): R73.01 - Impaired fasting glucose Category: Medical Plan: Decrease the amount of carbohydrate intake, pasta, bread, rice and potatoes are all sugar and that is aside from all the sweet stuff, remember that fruits are good but they are Sweet also. (2) Overweight (BMI 25.0-29.9): Code(s): E66.3 - Overweight Category: Medical Plan: Diet and exercise (3) Osteoporosis: Code(s): M81.0 - Age-related osteoporosis without current pathological fracture Category: Medical Plan: Discussed about getting another bone density for follow-up (4) Arthritis of carpometacarpal (CMC) joint of right thumb: Comment: Right thumb trapeziectomy interpositional arthroplasty dr. Weathers 2024 Code(s): M18.11 - Unilateral primary osteoarthritis of first carpometacarpal joint, right hand Category: Medical Plan: Patient follows up with orthopedics and has had a procedure done on the right thumb patient does have arthritis on both thumbs and has been recommended to have occupational therapy (5) COPD (chronic obstructive pulmonary disease): Code(s): J44.9 - Chronic obstructive pulmonary disease, unspecified Category: Medical Qualifiers: COPD type: emphysema Emphysema type: panlobular Qualified Code(s): J43.1 - Panlobular emphysema Plan: continuing with Combivent inhaler as needed (6) Generalized anxiety disorder: Comment: [facility] Teresa Santos once a year counselling Code(s): F41.1 - Generalized anxiety disorder Category: Medical Plan: Continue with counseling and therapy Plan History of Present Illness The patient is a 70-year-old female presenting for a follow-up visit. She has a history of Chronic Obstructive Pulmonary Disease (COPD) and hypercholesterolemia, which have been managed with medication. Her fasting glucose levels have been elevated, indicating a concern for diabetes mellitus. The patient also has a history of anxiety disorder and peripheral vascular disease. She was last seen in November 2024 for these conditions. In February 2025, she was evaluated by orthopedics for arthritis in both thumbs and instability of the metacarpophalangeal joint. She underwent a right thumb trapeziectomy and interpositional arthroplasty on January 12, 2025. Occupational therapy and the use of a brace were recommended. The patient has also been seen by dermatology for skin lesions, diagnosed as seborrheic keratosis. She has experienced episodes of allergic conjunctivitis. Her last blood work in August showed normal blood count and electrolytes, with mildly elevated blood sugar levels. Liver function and cholesterol levels were within normal limits, with an LDL of 4.83 mmol/L. Health Maintenance - Mammogram is due - Bone density scan is due - Diabetes management through diet and exercise discussed Social History Review of Systems Physical Exam Results - Labs: Normal blood count and electrolytes, mildly elevated blood sugar, normal liver function, cholesterol levels within normal limits, LDL 4.83 mmol/L Plan The patient will continue with the current management of her Chronic Obstructive Pulmonary Disease COPD) using the Combivent inhaler as needed. Her hypercholesterolemia is stable, and no changes to her current regimen are necessary. For diabetes management, emphasis was placed on diet and exercise. The patient is advised to follow up with orthopedics for her thumb arthritis and continue occupational therapy and use of a brace. Preventative care measures include scheduling a mammogram and bone density scan. The patient should continue with counseling and therapy for her anxiety di sorder. Patient was informed and verbally consented to the use of an ambient scribe for clinic note documentation during this visit. Discussion Notes Patient Instructions - Continue using Combivent inhaler as needed for COPD. - Maintain current diet and exercise plan for diabetes management. - Schedule and attend mammogram and bone density scan appointments. - Follow up with orthopedics and continue occupational therapy for thumb arthritis. - Continue counseling and therapy for anxiety disorder. Orders: Orders Complete Blood Count Auto Diff Today R73.01 - Impaired fasting glucose Thyroid Stimulating Hormone Today R73.01 - Impaired fasting glucose Vitamin B12 and Folate Today R73.01 - Impaired fasting glucose UA CC w/rflx Micro + Cult Today R30.0 - Dysuria, R73.01 - Impaired fasting glucose Hemoglobin A1c Today R73.01 - Impaired fasting glucose Comprehensive Met. Panel Today R73.01 - Impaired fasting glucose Free T4 (Free Thyroxine) Today R73.01 - Impaired fasting glucose Lipid Panel Today E78.00 - Pure hypercholesterolemia, unspecified, R73.01 - Impaired fasting glucose
[2025-04-04 09:40] VITALS: BP 112/84; PULSE 77; O2SAT 99; BMI 28.0
--- OUTSIDE RECORDS SUMMARY | 2025-04-04 09:57 | XMS_ITS | Clinical Summary ---
Author Organization [facility] Address [address] [place] [phone] Phone Care Team Providers Care Supervisor White Sugar Name Role Phone Daniel García MD Primary Care Provider Allergies Active Allergy Reactions Criticality Noted Date Comments Oxycodone Low 06/07/2024 Avoid opiates, doesn't react well Medications ipratropium-albuter oL (COMBIVENT RESPIMAT) 20-100 mcg/actuation inhaler Inhale by mouth. Active diazePAM (VALIUM) 10 mg tablet Take 1 tablet (10 mg total) by mouth every 8 (eight) hours if needed. Active fluticasone-salmete rol (ADVAIR DISKUS) 250-50 mcg/dose diskus inhaler Inhale [...] mg tablet Take by mouth. Activ e loratadine (CLARITIN) 10 mg tablet Take 1 tablet (10 mg total) by mouth 1 (one) time each day. Active erythromycin 5 mg/gram (0.5 %) ophthalmic ointment Apply to both eyes at bedtime. 01/01/20 25 Active ibuprofen (ADVIL,MOTRIN) 600 mg tablet Take 1 tablet (600 mg total) by mouth 3 (three) times a day with meals. 30 each 01/13/20 25 Active HYDROcodone-acetami nophen (NORCO) 5-325 mg per tabletIndications:O steoarthritis of first carpometacarpal joint, unspecified Take 1 tablet by mouth every 6 (six) hours if needed for severe pain. Max Daily Amount: 4 tablets 12 tablet 01/13/20 Active ondansetron ODT (ZOFRAN-ODT) 8 mg disintegrating tabletIndications:O steoarthritis of first carpometacarpal joint, unspecified Dissolve 1 tablet (8 mg total) on top of the tongue every 8 (eight) hours if needed for nausea or vomiting. 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 Anxiety disorder 12/19/2024 Arthritis of carpometacarpal (CMC) joint of righ t thumb 12/19/2024 COPD (chronic obstructive pu lmonary disease) ([facility] V24, [facility] V28) 06/07/2024 Encounters Date Type Department Care Team Description 03/20/2025 10:15 AM EDT Treatment [facility] [address] [place] [phone] Sandy Bain OT Arthritis of carpometacarpal (CMC) joint of right thumb (Primary Dx) 03/20/2025 9:30 AM EDT Office Visit Orthopedic Surgery - [place] [facility] [address] [place] [phone] Liza Ferreira MD Arthritis of carpometacarpal (CMC) joint of right thumb (Primary Dx); Arthritis of carpometacarpal (CMC) joint of left thumb; 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 03/15/2025 9:30 AM EDT [facility] [address] [place] [phone] Sandy Bain OT Arthritis of carpometacarpal (CMC) joint of right thumb (Primary Dx) 03/08/2025 9:00 AM EDT Treatment [facility] [address] [place] [phone] Bain, Sandy A, OT Arthritis of carpometacarpal (CMC) joint of right thumb (Primary Dx) 03/01/2025 8:30 AM EDT Treatment [facility] Occupational Therapy [address] [place] [phone] Sandy Bain, OT Arthritis of carpometacarpal (CMC) joint of right thumb (Primary Dx) 02/22/2025 9:30 AM EDT Treatment [facility] Occupational Therapy [address] [place] [phone] Sandy Bain OT Arthritis of carpometacarpal (CMC) joint of right thumb (Primary Dx) 02/17/2025 10:45 AM EDT Treatment [facility] Occupational Therapy [address] [place] [phone] Sandy Bain OT Arthritis of carpometacarpal (CMC) joint of right thumb (Primary Dx) 02/07/2025 2:15 PM EDT Treatment [facility] Occupational Therapy [address] [place] [phone] Sandy Bain OT Arthritis of carpometacarpal (CMC) joint of right thumb (Primary Dx) 02/03/2025 10:00 AM EDT Evaluation [facility] Occupational Therapy [address] [place] [phone] Sandy Bain, OT Arthritis of carpometacarpal (CMC) joint of right thumb (Primary Dx); Surgery follow-up 02/03/2025 9:30 AM EDT Office Visit Orthopedic Surgery [address] [phone] Savi Armenta PA Surgery follow-up (Primary Dx) 02/03/2025 Plan of Care Documentation [facility] Occupational Therapy [address] [place] [phone] 01/20/2025 9:30 AM EDT Office Visit Orthopedic Surgery [address] [phone] Armenta, Savi M, PA Surgery follow-up (Primary Dx) 01/12/2025 10:39 AM EDT Anesthesia Event [facility] [address] [place] [phone] Jonathan Bailon DO Swanson, Mona, CRNA 01/12/2025 9:00 AM EDT - 01/12/2025 12:30 PM EDT Surgery [facility] OR [address] [place] [phone] Liza Ferreira MD RIGHT THUMB, INTERPOSITIONAL ARTHROPLASTY [15174 (CPT )] 01/12/2025 7:23 AM EDT - 01/12/2025 2:33 PM EDT Hospital Encounter [facility] OR [address] [place] [phone] Liza Ferreira MD Osteoarthritis of first carpometacarpal joint, unspecified Discharge Disposition: Home or Self Care 01/12/2025 7:15 AM EDT - 01/12/2025 11:59 PM EDT Hospital Encounter [facility] X[facility] [address] [place] [phone] Pain Discharge Disposition: Home or Self Care from Last 3 Months Surgical History Surgery Date Site/Laterality Comments HAND SURGERY 2002 Left PROCEDURE: HISTORICAL HAND SURGERY; COMMENT: thumb CMC ROTATOR CUFF REPAIR 09/21/2000 - 09/20/2001 ORIF ANKLE FRACTURE Left TONSILLECTOMY BLADDER SURGERY HAND SURGERY 01/12/2025 Right The patient had a right thumb trapeziectomy with interpositional arthroplasty using the FCR tendon on the right hand Medical History Medical History Date Comments COPD (chronic obstructive pu lmonary disease) ([facility] V24, [facility] V28) DX:COPD (chronic o bstructive pulmonary disease) ([facility]) PONV (postoperative nausea and vomiting) Social History Tobacco Use Types Packs/Day Years Used Date Smoking Tobacco: Former Cigarettes Tobacco Cessation:Counseling Given: Not Answered Alcohol Use Standard Drinks/Week Comments Never 0 (1 standard drink = 0.6 oz pur e alcohol) Interpersonal Safety Answer Date Record ed Physical Abuse 01/12/2025 Verbal Abuse 01/12/2025 Comments No Sex and Gender Information Value Date Recorded Sex Assigned at Female 03/29/2025 1:47 PM EDT Legal Sex Female 11:01 AM EDT Gender Identity Female 03/29/2025 1:47 PM EDT Sexual Orientation Straight 03/29/2025 1: 47 PM EDT Obstetrics History Last Filed Vital Signs Vital Sign Reading Time Taken Comments Blood Pressure 94/69 01/12/2025 1:18 PM EDT Pulse 73 01/12/2025 1:18 PM EDT Temperature 36.1 C (97 F) 01/12/2025 1:18 PM EDT Respiratory Rate 20 01/12/2025 1:18 PM EDT Oxygen Saturation 97% 01/12/2025 1:18 PM EDT Inhaled Oxygen Concentration - - Weight 68 kg (150 lb) 03/20/2025 9:31 AM EDT Height 154.9 cm (5' 1 ) 03/20/2025 9:31 AM EDT Body Mass Index 28.34 03/20/2025 9:31 AM EDT Plan of Treatment Health Maintenance Due Date Last Done Comments Breast Cancer Screening 1955 Zoster Vaccines (1 of 2) 2005 Pneumococcal Vaccine: 50+ Years (2 of 2 - PCV) 04/08/2012 04/08/2011 RSV Immunization Adult Patients (1 - Risk 60-74 years 1-dose series) 2015 Colorectal Cancer Screening: Colonoscopy 04/15/2024 Depression Screening 04/15/2024 Falls Risk Assessment 04/15/2024 Hepatitis C Screening 04/15/2024 Medicare Annual Wellness Visit 04/15/2024 Osteoporosis Screening (Bone Density Screening) 04/15/2024 Social Influencers of Health Screening 04/15/2024 COVID-19 Vaccine (5 - season) 2024 01/03/2022, 08/05/2021, 01/21/2021, Additional history exists Influenza Vaccine (#1) 2025 , 07/02/2023, 06/23/2022, Additional history exists DTaP,Tdap,and Td Vaccines (3 - Td or Tdap) 12/12/2034 12/12/2024, 09/21/2004 HIB Vaccines Aged Out No longer eligi [...] age to complete this topic Meningococcal B Vaccine Aged Out No l onger eligible based on patient's age to complete this topic RSV Immunization Patients Under 20 months Aged Out No longer eligible based on patient's age to complete this topic Varicella Vaccines Aged Out No longer eligible based on patient's age to complete this topic Goals Goal Patient Goal Type Associated Problems Recent Progress Patient-Stated? 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 Procedures Procedure Name Priority Date/Time Associated Diagnosis Comments CAST APPLICATION Routine 01/20/2025 11:11 AM EDT Surgery follow-up ECG ANNOTATED 01/13/2025 OXYGEN THERAPY, ADULT Routine 01/12/2025 12:25 PM EDT TISSUE EXAM Routine 01/12/2025 12:02 PM EDT Osteoarthritis of first carpometacarpal joint, unspecified TH AN LMA(NO CHARGE) Routine 01/12/2025 11:01 AM EDT AK XFER/TRNSPL TNDN CARPOMETACARPAL AREA/DORSUM HAND WO FREE GRAFT EA TNDN 01/12/2025 10:34 AM EDT Osteoarthritis of first carpometacarpal joint, unspecified Case Notes Mini C-ARM, MICRO/MINI ANCHORS, SUPRACLAVICULAR NERVE BLOCK, PA ASSIST [place] ARTHROPLASTY INTERCARPAL/CARPOMET ACARPAL JOINTS INTERPOSTION 01/12/2025 10:34 AM EDT Osteoarthritis of first carpometacarpal joint, unspecified Case Notes Mini C-ARM, MICRO/MINI ANCHORS, SUPRACLAVICULAR NERVE BLOCK, PA ASSIST TH AN NERVE BLOCK SUPRACLAVICULAR (NO CHARGE) Routine 01/12/2025 9:55 AM EDT TH AN NERVE BLOCK SUPRACLAVICULAR (CHARGE) Routine 01/12/2025 9:55 AM EDT ECG 12-LEAD Routine 01/12/2025 8:54 AM EDT from Last 3 Months Results * Casting (01/20/2025 11:11 AM EDT) Narrative Savi Armenta PA - 01/20/2025 11:11 AM EDT JERICHO Jimenez 01/20/2025 11:14 AM Casting Date/Time: 01/20/2025 11:11 AM Performed by: JERICHO Jimenez Authorized by: JERICHO Jimenez Consent given by: patient Injury Location details: right wrist Pre-procedure assessment Distal perfusion: normal Distal sensation: normal Procedure Manipulation performed? no manipulation performed Immobilization: cast Cast type: thumb spica Supplies used: cotton padding (2 t fiberglass rollswo inch) Savi [facility]/BEDSIDE ORDERABLES Final Result * ECG-Annotated (01/13/2025) us Provider Onbase MD ECG ORDERABLES Final Result * Tissue exam (01/12/2025 12:02 PM EDT) Final Diagnosis Bone, Right, Trapezium-arthro plasty: -BONE AND CARTILAGE WITH DEGENERATIVE CHANGES 01/16/2025 11:12 AM EDT [facility] ([facility]) [facility] Gross Description A. Hand, Right, Trapezium: Labeled hand R, right tra . Received in formalin is a 3.2 x 2.8 x 1.1 cm aggregate of irregular lopez-yellow to pink bone fragments. The cartilage covered articular surfaces are markedly disrupted. The trabecular bone is pink-yellow and unremarkable. Approximately half of the specimen is submitted in one cassette following decalcification, multiple pieces. NELLIE 01/16/2025 11:12 AM EDT [facility] Disclaimer Unless otherwise specified, all tissue is 10% NB formalin fixed and paraffin embedded. 01/16/2025 11:12 AM EDT [facility] Bone Structure of right hand / Unknown 01/12/2025 12:02 PM EDT 01/12/2025 12:54 PM EDT Liza Ferreira MD LAB PATHOLOGY ORDERABLES Karen oliveira Result [facility]) [facility] [address] [place] [address], * TH AN LMA(NO CHARGE) (01/12/2025 11:01 AM EDT) Dina Albarado CRNA - 01/12/2025 11:01 AM EDT Dina Morelos CRNA 01/12/2025 11:02 AM General Information and Staff Patient location during procedure: OR Performed by: Dina Morelos CRNA Authorized by: Jonathan Bailon DO Intubation Airway not difficult Urgency: elective Final Airway Details Number of attempts at approach: 1 Ventilation between attempts: none Number of other approaches attempted: 0 LMA Size: 4 LMA Type: Classic LMA Seal Pressure: Final airway type: LMA Indications and Patient Condition Indications for airway management: anesthesia Spontaneous ventilation: present Sedation level: Yes Preoxygenated: yes Soft Tissue Damage: No Dentition Unchanged: Yes Patient position: sniffing MILS not maintained throughout Mask difficulty assessment: 0 - not attempted Start Time: 01/12/2025 10:46 AMStop Time: 01/12/2025 10:00 AM Jonathan Bailon DO ANESTHESIA ORDERABLES Final Res ult * TH AN NERVE BLOCK SUPRACLAVICULAR (CHARGE), TH AN NERVE BLOCK SUPRACLAVICULAR (NO CHARGE) (01/12/2025 9:55 AM EDT) Jonathan Godwin DO - 01/12/2025 9:55 AM EDT Jonathan Bailon DO 01/12/2025 10:40 AM Peripheral Block Patient location during procedure: pre-op Start time: 01/12/2025 9:55 AM End time: 01/12/2025 10:03 AM Reason for block: at surgeon's request Staffing Performed: anesthesiologist Anesthesiologist: Jonathan Bailon DO Preanesthetic Checklist Completed: patient identified, IV checked, site marked, risks and benefits discussed, surgical consent, monitors and equipment checked, pre-op evaluation and timeout performed Peripheral Block Patient position: sitting Prep: ChloraPrep Block type: supraclavicular Laterality: right Injection technique: single-shot Guidance: ultrasound guided Needle Needle type: long-bevel Needle gauge: 21 G Needle length: 10 cm Needle localization: anatomical landmarks Assessment Injection assessment: negative aspiration for heme, no paresthesia on injection, incremental injection with negative aspiration q 5ml and local visualized surrounding nerve on ultrasound Paresthesia pain: none Slow fractionated injection: yes Additional Notes Right supraclavicular nerve block done under sterile conditions with ultrasound guidance. Timeout performed. Patient sedated with fentanyl and versed per anesthesia record. Area prepped with chlorhexidine. Ultrasound placed. Relevant anatomy identified. 0.5% ropivacaine with 5 mg of decadron was used for the block. Block needle placed and guided to location using ultrasound. 30 ml of 0.5% ropivacaine with decadron was injected incrementally. All with negative aspiration for heme. Patient tolerated the procedure well. Performed for post operative pain management. Jonathan Bailon DO ANESTHESIA ORDERABLES Final Res ult * EKG 12 lead (01/12/2025 8:54 AM EDT) Ventricular Rate ECG 72 BPM GEMUSE Atrial Rate 72 BPM GEMUSE P-R Interval 136 ms GEMUSE QRS Duration 96 ms GEMUSE Q-T Interval 416 ms GEMUSE QTc 455 ms GEMUSE P Wave Jefferson -18 degrees GEMUSE R Jefferson 47 degrees GEMUSE T Jefferson 35 degrees GEMUSE ECG Interpretation Normal sinus rhythm Normal ECG No previous ECGs available Confirmed by Ny LING YUFENG ([id number]) on 01/12/2025 12:34:41 PM GEMUSE 01/12/2025 8:54 AM EDT 01/12/2025 12:34 PM EDT us Liza Ferreira MD ECG ORDERABLES Final Result GEMUSE from Last 3 Months Insurance MEDICARE [facility] Care Teams Supervisor White Sugar Relationship Specialty Start Date End Date Daniel García MD [address] [place] [address] [address] [facility] [place] [address] PCP - General 02/16/24
== END 2025-04-04 10:24 | disposition home or self-care (01) ==
LOC: HO.HMCH 09:25
PROVIDERS: PCP Internal Medicine; Visit Provider Internal Medicine
DX: R73.01 Impaired fasting glucose (principal); E66.3 Overweight; J43.1 Panlobular emphysema; M81.0 Age-related osteoporosis without current pathological fracture; M18.11 Unilateral primary osteoarthritis of first carpometacarpal joint, right hand; F41.1 Generalized anxiety disorder

== ENCOUNTER → 2025-04-04 09:25 | Outpatient (BNVA) | payer MEDICARE, SELFPAY | PROVIDERS: PCP Internal Medicine; Visit Provider Internal Medicine | DX: R73.01 Impaired fasting glucose (principal); M81.0 Age-related osteoporosis without current pathological fracture; M18.11 Unilateral primary osteoarthritis of first carpometacarpal joint, right hand; J43.1 Panlobular emphysema; F41.1 Generalized anxiety disorder; E66.3 Overweight; Z68.28 Body mass index [BMI] 28.0-28.9, adult; Z71.3 Dietary counseling and surveillance | CPT/HCPCS: 99212 ==

== ENCOUNTER 2025-05-01 08:16 | Outpatient (REF) | payer MEDICARE, SELFPAY ==
--- OUTSIDE RECORDS SUMMARY | 2025-05-01 08:32 | XMS_ITS | Clinical Summary ---
Author Organization [facility] Address [address] [place] [phone] Phone Care Team Providers Care Phlebotomy Instructor Name Role Phone Daniel García MD Primary Care Provider [phone] Allergies Active Allergy Reactions Criticality Noted Date [...] 12/19/2024 COPD (chronic obstructive pu lmonary disease) ([facility] V24, [facility] V28) 06/07/2024 Encounters Date Type Department Care Team Description 03/20/2025 10:15 AM EDT Treatment [facility] Occupational Therapy [address] [place] [phone] Sandy Bain OT Arthritis of carpometacarpal (CMC) joint of right thumb (Primary Dx) 03/20/2025 9:30 AM EDT Office Visit Orthopedic Surgery - [place] [facility] [address] [place] [phone] Liza Ferreira MD Arthritis of carpometacarpal (CMC) joint of right thumb (Primary Dx); Arthritis of carpometacarpal (CMC) joint of left thumb; 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 03/15/2025 9:30 AM EDT Treatment [facility] Occupational Therapy [address] [place] [phone] Sandy Bain OT Arthritis of carpometacarpal (CMC) joint of right thumb (Primary Dx) 03/08/2025 9:00 AM EDT Treatment [facility] Occupational Therapy [address] [place] [phone] Bain, Sandy A, OT Arthritis of carpometacarpal (CMC) joint of right thumb (Primary Dx) 03/01/2025 8:30 AM EDT Treatment [facility] Occupational Therapy [address] [place] [phone] Sandy Bain OT Arthritis of carpometacarpal (CMC) joint of right thumb (Primary Dx) 02/22/2025 9:30 AM EDT Treatment [facility] Occupational [address] [phone] Sandy Bain OT Arthritis of carpometacarpal (CMC) joint of right thumb (Primary Dx) 02/17/2025 10:45 AM EDT Treatment [facility] Occupational [address] [phone] Sandy Bain OT Arthritis of carpometacarpal (CMC) joint of right thumb (Primary Dx) 02/07/2025 2:15 PM EDT Treatment [facility] Occupational [address] [phone] Sandy Bain OT Arthritis of carpometacarpal (CMC) joint of right thumb (Primary Dx) 02/03/2025 10:00 AM EDT Evaluation [facility] Occupational Therapy [address] [place] [phone] Sandy Bain OT Arthritis of carpometacarpal (CMC) joint of right thumb (Primary Dx); Surgery follow-up 02/03/2025 9:30 AM EDT Office Visit Orthopedic Surgery - [address] [phone] Savi Armenta PA Surgery follow-up (Primary Dx) 02/03/2025 Plan of Care Documentation [facility] Occupational Therapy [address] [place] [phone] from Last 3 Months Surgical History Surgery Date Site/Laterality Comments HAND SURGERY 2003 Left PROCEDURE: HISTORICAL HAND SURGERY; COMMENT: thumb CMC ROTATOR CUFF REPAIR 09/21/2000 - 09/20/2001 ORIF ANKLE FRACTURE Left TONSILLECTOMY BLADDER SURGERY HAND SURGERY 01/12/2025 Right The patient had a right thumb trapeziectomy with interpositional arthroplasty using the FCR tendon on the right hand Medical History Medical History Date Comments COPD (chronic obstructive pu lmonary disease) ([facility] V24, [facility] V28) DX:COPD (chronic o bstructive pulmonary disease) ([facility]) PONV (postoperative nausea and vomiting) Social History [...] series) 2015 Colorectal Cancer Screening: Colonoscopy 04/15/2024 Falls Risk Assessment 04/15/2024 Hepatitis C Screening 04/15/2024 Medicare Annual Wellness Visit 04/15/2024 Osteoporosis Screening (Bone Density Screening) 04/15/2024 Social Influencers of Health Screening 04/15/2024 COVID-19 Vaccine ( season) 2024 01/03/2022, 08/05/2021, 01/21/2021, Additional history exists Depression Screening 09/21/2024 Influenza Vaccine (#1) 2025 , 07/02/2023, 06/23/2022, [...] 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
[2025-05-01 08:36] LABS: MANUAL DIFF FLAG NO
[2025-05-01 09:10] LABS: Hematocrit 44.7 % (37.0-47.0); Hemoglobin 14.4 g/dl (12.0-16.0); Imm Gran Abs Auto 0.01 X10*3/uL (0.00-0.03); Imm Gran Pct Auto 0.1 % (0.0-0.4); Lymphocytes Absolute Auto 2.9 X10*3/uL (1.2-4.9); Mean Corpuscular HGB Conc 32.2 g/dl (31.0-35.0); Mean Corpuscular Hemoglobin 29.2 pg (27.0-33.0); Mean Corpuscular Volume 90.7 fL (80.0-98.0); NRBC Abs Auto 0.000 X10*3/uL (0.0-0.012); NRBC Pct Auto 0.0 /100WBC (0.0-0.2); Platelet Count 271 X10*3/uL (160-400); Red Blood Count 4.93 X10*6/uL (4.20-5.50); White Blood Count 6.8 X10*3/uL (4.8-10.8)
[2025-05-01 09:19] LABS: Hemoglobin A1C 139.5820 umol/L; Total Hemoglobin (HGBA1C) 3830.2560 umol/L
[2025-05-01 09:23] LABS: Appearance Urine Clear; Glucose Urine UA Negative (Negative); PH 6.5 (5.0-9.0); Specific Gravity - Urine <= 1.005 (1.005-1.025)
[2025-05-01 09:39] LABS: Alanine Aminotransferase 19 U/L (0-31); Albumin Level 4.4 g/dL (3.5-5.0); Alkaline Phosphatase 91 U/L (39-117); Anion Gap 11 (12-20); Aspartate Amino Transferase 30 U/L (5-31); Blood Urea Nitrogen 12 mg/dL (9-16); Calcium 9.1 mg/dL (8.4-10.2); Carbon Dioxide 26 mmol/L (22-29); Chloride 109 mmol/L (96-108); Cholesterol 212 mg/dL (<200); Estimated Glomerular Filt Rate > 60; HDL Cholesterol 71 mg/dL (>40); Potassium 4.1 mmol/L (3.3-5.1); Sodium 142 mmol/L (135-145); Total Protein 6.9 g/dL (6.5-8.0); Triglycerides 108 mg/dL (<150)
[2025-05-01 10:03] LABS: Free T4 (Free Thyroxine) 1.04 ng/dL (0.71-1.85); Thyroid Stimulating Hormone 1.89 uIU/mL (0.32-4.0)
[2025-05-01 10:08] LABS: Folate 14.0 ng/mL (> or = 4.0); Vitamin B12 621 pg/mL (200-900)
== END 2025-05-01 08:17 | disposition home or self-care (01) ==
LOC: HO.LAB 08:16
PROVIDERS: PCP Internal Medicine; Visit Provider Internal Medicine
DX: R30.0 Dysuria (principal); R73.01 Impaired fasting glucose; E78.00 Pure hypercholesterolemia, unspecified
CPT/HCPCS: 36415; 80053; 80061; 81003; 82607; 82746; 83036; 84439; 84443; 85025

== ENCOUNTER 2025-07-26 09:41 | Outpatient (AMB) | payer MEDICARE, SELFPAY ==
--- OUTSIDE RECORDS SUMMARY | 2024-06-29 05:30 | XMS_ITS | Continuity of Care Document ---
Author Organization [facility] Address [address] [place] [address] Phone Care Team Providers Care Modeler Name Role Phone Franco ARNOLD, RVT, LARRY, Fredrick Unavailable U navailable Allergies, Adverse Reactions, Alerts Substance Reaction Status Criticality Sulfa (Sulfonamide Antibiotics) Active No Information Procedures Procedure Date No Charge For Services Office/Outpt E&M Established 15 Mins- CT & [place] Duplex Scan-extrem Veins; Uni/ CT & [place] A Duplex Scan-extrem Veins; Uni/ CT & [place] J Duplex Scan-extrem Veins; Uni/ CT & [place] J Inj Scleros Solut; Mx Veins 1- CT & MA J Ultrason Guidan Needle Bx-rad- CT & MA J Endovenous Laser, 1st Vein- CT & [place] Endovenous laser vein addon- CT & MA Mar Offic/outpt E&m Estab 5 Min Trial- Telem edicine CT & [place] Office/Oupt E&M New Pt 45 Mins- CT & [place] Duplex Scan-extrem Veins; Uni/ CT & [place] M Advance Directives Directive Yes / No Effective Date File Name Other Directive No N/A N/A WARNING:The information contained in this section is historical and is provided for information only and does not constitute a legal document or any assurance that the information is still accurate. Please verify the information with the huber of the legal document before using it for clinical purposes. Encounters Encounter Description Practice Location Reason(s) For Visit Diagnoses Date Provider Providers Copied on Encounter [facility] [facility] Veronica GUZMAN, [address] [place] [address] Dr Plata [address] 1000Abimael [place], [id number], [place] tel:[phone] [facility] Encounter for cosmetic surgery 4 Franco ARNOLD RVT, RPVI Robert. [address] [place] [address], [facility] [place] [place], [id number], [place]. tel:[phone] Referring Provider: Daniel García MD, [address] [place] [address] [address] [facility], [place], [address]. tel:[phone] Office/Outpt E&M Established 15 Mins- CT & [place] [facility] MD GUZMAN, [address] [place] [address] Dr Plata 1000[address] 1000Abimael MD, [id number], [place] tel:[phone] [facility] Venous insufficienc y (chronic) (peripheral) 4 Franco ARNOLD RVT, RPVI Robert. [address] [place] [address], [facility] [place] [place], [id number], [place]. tel:[phone] [facility] Veronica ARNOLD [facility], [address] [place] [address] Dr Plata 1000Suite Abimael Ni MD, [id number], [place] tel:[phone] [facility] Encounter for follow-up examination after completed treatment for conditions other than malignant nePain in left leg 4 Franco ARNOLD RVT, RPVI Robert. [address] [place] [address] [place], [id number], [place]. tel:[phone] Referring Provider: Fredrick Gamez MD, RVT, RPVI, [address] [place] [address], [address]. tel:[phone] [facility] MD GUZMAN, [address] [place] [address] Dr Plata 1000Suite 1000Abimael MD, [id number], [place] tel:[phone] [facility] [place] Encounter for follow-up examination after completed treatment for conditions other than malignant neVaricose veins of left lower extremity with pain 4 Franco ARNOLD RVT, RPVI Robert. [address] [facility], Suite [facility], [place], [place], [id number], [place]. tel:[phone] Referring Provider: Fredrick Gamez MD, MARNIE, LARRY, [address] [place] [address], [place], [address]. tel:[phone] [facility], [address] [place] [address] [address] 1000Abimael MD, [id number], [place] tel:[phone] CVR - [facility] Encounter for follow-up examination after completed treatment for conditions other than malignant neoplasmPain in left leg 4 Franco ARNOLD RVT, RPVI Robert. [address] [place] [address], [place] [address], [place], [place], [id number], [place]. tel:[phone] Referring Provider: Daniel García MD, [address] [place] [address] Dr [address] [facility], [place], [address]. tel:[phone] [facility], [address] [place] [address] [address] 1000Abimael MD, [id number], [place] tel:[phone] CV[facility] - [facility] Varicose veins of left lower extremity with other complication s 4 Mathew Wick. [facility], Suite [facility], [place], [place], [id number], [place]. tel:[phone] Referring Provider: Shamika Carmona NP, [address] [place] [address], [address]. tel:[phone] [facility], [address] [place] [address] [address] 1000Abimael MD, [id number], [place] tel:[phone] CVR - [facility] Varicose veins of left lower extremity with other complication s 4 Franco ARNOLD RVT, RPVI Robert. [address] [place] [address], [place], [place], [id number], [place]. tel:[phone] Offic/outpt E&m Estab 5 Min Trial- Telemedicine CT & [place] [facility], [address] [place] [address] Dr Plata 1000[address] 1000Abimael [place], [id number], [place] tel:[phone] [facility] [place] Cramp and spasmVenous insufficienc y (chronic) (peripheral) Pruritus, unspecified 4 Mallika Mercedes. [address] [place] [address], [place], [place], [id number], [place]. tel:[phone] [facility], [address] [place] [address] Dr Plata 1000[facility] 1000Abim[place], [id number], [place] tel:[phone] [facility] [place] No Information 4 Franco ARNOLD RVT, LARRY [place]. [address] [place] [address], [facility] [place], [id number], [place]. tel:[phone] Office/Oupt E&M New Pt 45 Mins- CT & [place] [facility], [address] [place] [address] Dr Pl[address] 1000Abimael MD, [id number], [place] tel:[phone] [facility] - [place] Varicose veins of bilateral lower extremities with other complication sCramp and spasm 4 Franco ARNOLD RVT, LARRY [place]. [address] [place] [address], [facility] [place], [id number], [place]. tel:[phone] [facility], [address] [place] [address] Dr Plata 1000[address] 1000Abimael MD, [id number], [place] tel:[phone] [place] Chronic venous hypertension (idiopathic) with other complication s of left lower extremity 4 Franco ARNOLD RVT, LARRY [place]. [address] [place] [address], [facility] [place], [id number], [place]. tel:[phone] Referring Provider: Fredrick Gamez MD, RVT, RPVI, [address] [facility] [address], [place], [address]. tel:[phone] Family History Family Member Type Diagnosis Age At Onset No Information Payers Payer name Insurance type Covered republican ID Authoriza tion(s) Medicare DOMINGA NELSON [id number] BCBS DOMINGA [id number] Social History Type Description Quantity Date Captured Comments Alcohol Use Details Unknown Caffeine Use Details Unknown Tobacco Use Status No Information Smoking Status Smoker, current stat us unknown Non-Smoking Tobacco Use Details : No Details Available : No Details Available Sex Female Chief Complaint And Reason For Visit No Information Reason For Referral Reason For Referral No Information Plan Of Treatment Date Type Action Status Goal Tobacco cessation counseling completed Goal Tobacco cessation counseling completed Goal Diet education completed Goal Tobacco cessation counseling completed Goal Diet education completed Goal Tobacco cessation counseling completed Referral Ordered: Weight management: Referral to physician timeframe: 3 Months (related to Body mass index (BMI) 30.0-30.9, adult) ordered Referral Ordered: Weight management: Referral to physician timeframe: 3 Months (related to Body mass index (BMI) 30.0-30.9, adult) ordered History Of Present Illness Encounter Date Complaint History Of Prese nt Illness No Information Functional Status Date Functional Assessmen t No Information Instructions Date Instruction Additional Infor mation Continue compression stocking us e Related to Encounter for Cosmetic Surgery Patient education booklet given Related to Encounter for Cosmetic Surgery Lifestyle education Related to B luciano mass index (BMI) 30.0-30.9, adult Giving Encouragement to exercise Related to Body mass index (BMI) 30.0-30.9, adult Diet education Related to Body mass index (BMI) 30.0-30.9, adult Pre and post instruc tions reviewed and provided Related to Venous insufficiency (chronic) (peripheral) Pre and post instruc tions reviewed and provided Related to Cramp and spasm Patient education booklet given Related to Varicose veins of bilateral lower extremities with other complications Lifestyle education Related to B luciano mass index (BMI) 30.0-30.9, adult Giving Encouragement to exercise Related to Body mass index (BMI) 30.0-30.9, adult Diet education Related to Body mass index (BMI) 30.0-30.9, adult Pre and post instruc tions reviewed and provided Related to Varicose veins of bilateral lower extremities with other complications Assessments Type Assessment Date assessment Encounter for cosmetic surgery O Patient Care Teams Name Effective Dates (start - stop) Status Members No Information
[2025-07-26 09:43] VITALS: BP 114/72; PULSE 82; O2SAT 97; BMI 28.0
--- NOTE | 2025-07-26 09:43 | A.OFFPC_ITS ---
Vital Signs 07/26/25 09:43 Height 5 ft 1 in Weight 148 lb BMI 28.0 BP 114/72 Blood Pressure Location Lt brachial Position Sitting Pulse 82 Pulse Source Pulse Oximeter Pulse Oximetry (%) 97 Oxygen Delivery Method Room Air Intake Visit Reasons: 3 mo follow up Allergies doxycycline Allergy (Intermediate, Verified 07/26/25 09:44) unknown meperidine (Demerol) Allergy (Intermediate, Verified 07/26/25 09:44) nausea and vomiting morphine (MORPHINE) Allergy (Intermediate, Verified 07/26/25 09:44) NAUSEA & VOMITING, nausea and vomiting oxycodone (OXYCODONE) Allergy (Intermediate, Verified 07/26/25 09:44) NAUSEA & VOMITING sulfamethoxazole (From Bactrim) Adverse Reaction (Intermediate, Verified 07/26/25 09:44) Rash trimethoprim (From Bactrim) Adverse Reaction (Intermediate, Verified 07/26/25 09:44) Rash OxyContin Allergy (Unknown, Uncoded 07/26/25 09:44) nausea and vomiting Medication List - Last Reconciled 07/26/25 by Daniel García MD ascorbate calcium (vitamin C) 500 mg PO DAILY cholecalciferol (vitamin D3) 25 mcg PO DAILY cyanocobalamin (vitamin B-12) 1,000 mcg PO DAILY diazepam 10 mg PO TID PRN fluticasone propion-salmeterol 250-50 mcg/dose (Wixela Inhub) 1 ea inhalation BID ipratropium-albuterol 0.5 mg-3 mg(2.5 mg base)/3 mL mL inhalation Q6H ipratropium-albuterol 20-100 mcg/actuation inhalation ipratropium-albuterol 20-100 mcg/actuation (Combivent Respimat) 1 puff inhalation Q6H loratadine (Claritin) 10 mg PO DAILY magnesium 250 mg PO DAILY Tobacco use date assessed: 10/18/24 Fall risk assessment: No Falls in past year Last assessed Fall Risk: 07/26/25 Dental Screening Dental Screen Date: 12/07/24 [facility] Medical History Generalized anxiety disorder Right rib fracture Hypercholesterolemia Allergic rhinitis COPD (chronic obstructive pulmonary disease) Surgical History History of pubovaginal sling History of repair of rotator cuff History of ankle surgery History of tonsillectomy History of tubal ligation Family History Father CVD (cardiovascular disease) Myocardial infarction Mother Hypertension Sister No problems noted. Son No problems noted. Son No problems noted. Daughter No problems noted. Daughter No problems noted. Social History Housing: House Alcohol intake: never Patient Tobacco Use Status: Former Tobacco user Tobacco use type: Cigarette e-Cigarette/Vaping Use: Never Used Second Hand Smoke Exposure: Yes service: No Current occupational status: retired Current occupation: rt hand Cognitive needs: No Hearing needs: No Vision needs: Yes Questionnaire Thrive Questionnaire Date Thrive assessed: 07/26/25 I am a: Patient What is your living situation today?: I have a steady place to live Within the past 12 months, did the food you bought not last and you didn't have the money to get more?: I choose not to answer this question Within the past 12 months, did you worry whether your food would run out before you got money to buy more?: I choose not to answer this question Do you have trouble paying for medicines?: I choose not to answer this question Do you have trouble getting transportation to medical appointments?: I choose not to answer this question Do you have trouble paying your heating and electricity bill?: I choose not to answer this question Do you have trouble taking care of your child, family member or friend?: I choose not to answer this question Do you have trouble with day-to-day activities such as bathing, preparing meals, shopping, managing finances, etc.?: I choose not to answer this question Are you currently unemployed and looking for a job?: I choose not to answer this question Are you interested in more education?: I choose not to answer this question Please select the resources that you would like help with: None Currently or been in a relationship where the following occur: I choose not to answer THRIVE Score: 0 KENZIE-7 AMB Questionnaire KENZIE-7 Date KENZIE - 7 assessed: 04/04/25 Source: Developed by Drs. Fredrick L. RomeAshwini alcala, sIma Santiago and colleagues, with an educational albino from [email or web address]. Physical exam (Primary Care) Vital Signs: Last Vital Signs Pulse 82 07/26/25 09:43 BP 114/72 07/26/25 09:43 Pulse Ox 97 07/26/25 09:43 Oxygen Delivery Method Room Air 07/26/25 09:43 BMI result Body Mass Index 28.0 Tobacco/Smoking Status: Tobacco use Status Tobacco use date assessed 10/18/24 07/26/25 09:44 Patient Tobacco Use Status Former Tobacco user 07/26/25 09:44 Tobacco use type Cigarette 07/26/25 09:44 e-Cigarette/Vaping Use Never Used 07/26/25 09:44 Thrive Assessment: Date of Thrive Assessment Date Thrive assessed 07/26/25 07/26/25 09:44 Currently or been in a relationship where the following occur: I choose not to answer Const General: alert; No acute distress Eyes Conjunctivae: conjunctivae normal Resp Auscultation: clear to auscultation bilaterally Cardio Rate: regular rate Rhythm: regular rhythm GI Inspection: Yes normal to inspection Extrem General: Yes normal to inspection and No edema Coding Level of Care Code Est Pt Level 4 (65226) Complex EM visit Add On G2211 Diagnoses Impaired fasting glucose R73.01 Overweight (BMI 25.0-29.9) E66.3 Osteoporosis M81.0 Hypercholesterolemia E78.00 Peripheral vascular disease I73.9 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 Emphysema type: panlobular Assessment & Plan Assessment & Plan (1) Impaired fasting glucose: Code(s): R73.01 - Impaired fasting glucose Category: Medical Plan: Decrease the amount of carbohydrate intake, pasta, bread, rice and potatoes are all sugar and that is aside from all the sweet stuff, remember that fruits are good but they are Sweet also. April blood work normal (2) Overweight (BMI 25.0-29.9): Code(s): E66.3 - Overweight Category: Medical Plan: Diet and exercise (3) Osteoporosis: Comment: January 2023 Code(s): M81.0 - Age-related osteoporosis without current pathological fracture Category: Medical Plan: Reminded about bone density (4) Hypercholesterolemia: Code(s): E78.00 - Pure hypercholesterolemia, unspecified Category: Medical Plan: Avoid fried foods, chicken skin, eggs, butter margarine, pastries and meat. Be it pork or beef they have a lot of cholesterol LDL goal of less than 130 and triglyceride of less than 150 (5) Peripheral vascular disease: Comment: April 2024 GSV left leg occluded proximal calf and proximal thigh to mid thigh, AAA GSV proximal thigh to mid thigh, reflux posterior proximal calf saphenous tributary Code(s): I73.9 - Peripheral vascular disease, unspecified Category: Medical Plan: When sitting down elevate the legs, exercise, and support stockings (6) COPD (chronic obstructive pulmonary disease): Code(s): J44.9 - Chronic obstructive pulmonary disease, unspecified Category: Medical Qualifiers: COPD type: emphysema Emphysema type: panlobular Qualified Code(s): J43.1 - Panlobular emphysema Plan: Discussed about Wixela and Combivent. Plan History of Present Illness The patient is a 70-year-old female presenting for a follow-up visit regarding management of chronic conditions including COPD, hypercholesterolemia, impaired glucose tolerance, general anxiety disorder, osteoporosis, and peripheral vascular disease. Her COPD management involves medications such as Wixela, albuterol, and Combivent. Recently, blood work indicated normal glucose levels and cholesterol levels meeting the treatment goal. She reports arthritis-related pain in her hands and feet and is managing general anxiety disorder with diazepam, though not currently using it frequently. Last bone density scan was conducted in January 2023. She has declined both a mammogram and a colonoscopy for preventative screening. Health Maintenance - Mammogram is due but has been declined. - Colonoscopy has been declined. - Osteoporosis: Last bone density scan conducted in January 2023; patient reminded about monitoring. - Hypercholesterolemia: LDL goal is less than 130 mg/dL; recent LDL is 120 mg/dL. Social History - Lifestyle includes adherence to diet and exercise recommendations. - Reports taking supplements for lung health, such as maline for detox purposes. - Prefers avoiding certain medications due to concerns about efficacy. Review of Systems - Respiratory: Reports using inhalers more frequently with humidity; otherwise stable. - Musculoskeletal: Reports arthritis pain in hands and feet. - Endocrinological: Denies any new symptoms related to glucose intolerance. Physical Exam - Respiratory- Lungs clear to auscultation bilaterally. Results - Labs: - Normal blood count with no anemia. - Electrolytes, renal function, and liver function were normal. - Blood sugar was 96 mg/dL with a normal hemoglobin A1c. - LDL cholesterol was 120 mg/dL. - B12, folic acid, and thyroid levels were within normal limits. - Urine test was negative. - Tests and Diagnostics: - Bone density scan conducted in January 2023. Plan Patient was informed and verbally consented to the use of an ambient scribe for clinic note documentation during this visit. 1. Impaired Glucose Tolerance Continue lifestyle management ensuring blood glucose stability as current regimen successful. 2. Osteoporosis Reinforce continued monitoring of bone health. Discuss supplemental strategies for bone strength. 3. Hypercholesterolemia Continue monitoring with target LDL maintained. Reinforce lifestyle factors contributing to cholesterol management success. 4. Peripheral Vascular Disease The condition was noted as part of the management plan. 5. Chronic Obstructive Pulmonary Disease Maintain medication regimen with Wixela, albuterol, and Combivent. Adjust based on inhaler use needing environmental adjustments. Consider alternative supportive treatments reported by patient. 6. Arthritis Acknowledge symptomatology and consider appropriate pain management options without risk dependency. 7. General Anxiety Disorder Continue use of diazepam as necessary, jeering clear of dependency while considering overall well-being. Discussion Notes In our discussion, I reviewed the patient's current management plans for her chronic conditions, emphasizing the importance of maintaining her COPD medication regimen and adjusting for environmental factors. Her cholesterol levels are satisfactory, and diet and exercise remain saini components for managing impaired glucose tolerance. We discussed the current approach to pain management for arthritis without overrelying on medications, plus the consideration of diazepam for general anxiety disorder with cautious use to avoid dependency. The patient decided to decline preventive screenings at this time. I noted her engagement with additional therapies like maline for lung health and previous recommendations for supplements. We discussed the possible influence of environmental factors like the upcoming colder months on her health and the risks related to COVID-19. Patient Instructions - Keep on your diet and exercise plan for blood sugar management. - Keep using your COPD medications, including Wixela, albuterol, and Combivent, as needed. - Remember your LDL cholesterol level is at a good level. - Your last bone density scan was in January 2023; remember the importance of continued monitoring. - We noted that you declined the mammogram and colonoscopy recommendations. - Be careful with environmental changes; maintain health strategies regarding COVID-19 situations. Medications: Refilled diazepam 10 mg PO TID PRN 90 tabs 0RF anxiety F41.1 - Generalized anxiety disorder
--- OUTSIDE RECORDS SUMMARY | 2025-07-26 10:52 | XMS_ITS | Clinical Summary ---
Author Organization [facility] Address [address] [place] [id number] Phone Care Team Providers Care Barge Captain Name Role Phone Daniel García MD Primary Care Provider [phone] Allergies Active Allergy Reactions Criticality Noted Date [...] Daily Amount: 4 tablets 12 tablet 01/13/20 25 Active ondansetron ODT (ZOFRAN-ODT) 8 mg disintegrating tabletIndications:O steoarthritis of first carpometacarpal joint, unspecified Dissolve 1 tablet (8 mg total) on top of the tongue every 8 (eight) hours if needed for nausea or vomiting. 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 Anxiety disorder 12/19/2024 Arthritis of carpometacarpal (CMC) joint of righ t thumb 12/19/2024 COPD (chronic obstructive pu lmonary disease) ([facility] V24, [facility] V28) 06/07/2024 Surgical History Surgery Date Site/Laterality Comments HAND [...] Comments COPD (chronic obstructive pu lmonary disease) ([facility] V24, [facility] V28) DX:COPD (chronic o bstructive pulmonary disease) ([facility]) PONV (postoperative nausea and vomiting) Social History Tobacco Use Types Packs/Day Years Used Date Smoking Tobacco: Former Cigarettes Tobacco Cessation:Counseling Given: Not Answered Alcohol Use Standard Drinks/Week Comments Never 0 (1 standard drink = 0.6 oz pur e alcohol) Interpersonal Safety Answer Date Record ed Physical Abuse Unrecognized value 01/12/2025 Verbal Abuse Unrecognized value 01/12/2025 Comments No Sex and Gender Information [...] Last Done Comments Breast Cancer Screening 1955 Colorectal Cancer Screening: Colonoscopy 1955 RSV Immunization Adult Patients (1 - Risk 50-74 years 1-dose series) 2005 Zoster Vaccines (1 of 2) 2005 Pneumococcal Vaccine: 50+ Years (2 of 2 - PCV) 04/08/2012 04/08/2011 Falls Risk Assessment 04/15/2024 Hepatitis C Screening 04/15/2024 Medicare Annual Wellness Visit 04/15/2024 Osteoporosis Screening (Bone Density Screening) 04/15/2024 Social Influencers of Health Screening 04/15/2024 Depression Screening 09/21/2024 COVID-19 Vaccine ( season) 2025 01/03/2022, 08/05/2021, 01/21/2021, Additional history exists Influenza [...] 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
== END 2025-07-26 10:32 | disposition home or self-care (01) ==
LOC: HO.HMCH 09:42
PROVIDERS: PCP Internal Medicine; Visit Provider Internal Medicine
DX: R73.01 Impaired fasting glucose (principal); J43.1 Panlobular emphysema; E66.3 Overweight; Z68.28 Body mass index [BMI] 28.0-28.9, adult; M81.0 Age-related osteoporosis without current pathological fracture; E78.00 Pure hypercholesterolemia, unspecified; I73.9 Peripheral vascular disease, unspecified

== ENCOUNTER → 2025-07-26 09:41 | Outpatient (BNVA) | payer MEDICARE, SELFPAY | PROVIDERS: PCP Internal Medicine; Visit Provider Internal Medicine | DX: R73.01 Impaired fasting glucose (principal); M81.0 Age-related osteoporosis without current pathological fracture; E78.00 Pure hypercholesterolemia, unspecified; I73.9 Peripheral vascular disease, unspecified; J43.1 Panlobular emphysema; E66.3 Overweight; Z68.28 Body mass index [BMI] 28.0-28.9, adult; Z71.3 Dietary counseling and surveillance | CPT/HCPCS: 99212 ==

== ENCOUNTER 2025-08-30 11:34 | Outpatient (REF) | payer MEDICARE, SELFPAY ==
--- OUTSIDE RECORDS SUMMARY | 2025-08-31 00:54 | XMS_ITS | Clinical Summary ---
Author Organization [facility] Address [address] [place] [phone] Phone Care Team Providers Care Airline Captain Name Role Phone Daniel García MD Primary Care Provider [phone] Allergies Active Allergy Reactions Criticality Noted Date [...] righ t thumb 12/19/2024 COPD (chronic obstructive pulmonary disease) Surgical History Surgery Date Site/Laterality Comments HAND [...] Comments COPD (chronic obstructive pu lmonary disease) ([facility] V24, [facility] V28) DX:COPD (chronic o bstructive pulmonary disease) (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
== END 2025-08-30 11:35 | disposition home or self-care (01) ==
LOC: HO.LNP 11:34
PROVIDERS: PCP Internal Medicine; Visit Provider Physician Assistant
DX: R35.0 Frequency of micturition (principal); R82.81 Pyuria
CPT/HCPCS: 81003; 87086; 99212

== ENCOUNTER 2025-08-30 11:34 | Outpatient (AMB) | payer MEDICARE, SELFPAY ==
[2025-08-30 12:14] VITALS: BP 128/86; PULSE 83; TEMP 36.4; O2SAT 98; BMI 28.0
--- NOTE | 2025-08-30 12:14 | MHC.OFFWIV ---
Intake Vital Signs 08/30/25 12:14 Height 5 ft 1 in Weight 148 lb BMI 28.0 BP 128/86 Blood Pressure Location Lt brachial Position Sitting Pulse 83 Pulse Source Pulse Oximeter Temp 97.6 F Temp Source Oral Pulse Oximetry (%) 98 Oxygen Delivery Method Room Air Intake Visit Reasons: EP Possible UTI Intake Note: pt presents with low grade fever, body chills, urine frequency with little output, low back pain, teeth and clitoris tingling with peeing Patient Tobacco Use Status: Former Tobacco user Allergies doxycycline Allergy (Intermediate, Verified 08/30/25 12:23) unknown meperidine (Demerol) Allergy (Intermediate, Verified 08/30/25 12:23) nausea and vomiting morphine (MORPHINE) Allergy (Intermediate, Verified 08/30/25 12:23) NAUSEA & VOMITING, nausea and vomiting oxycodone (OXYCODONE) Allergy (Intermediate, Verified 08/30/25 12:23) NAUSEA & VOMITING sulfamethoxazole (From Bactrim) Adverse Reaction (Intermediate, Verified 08/30/25 12:23) Rash trimethoprim (From Bactrim) Adverse Reaction (Intermediate, Verified 08/30/25 12:23) Rash OxyContin Allergy (Unknown, Uncoded 08/30/25 12:23) nausea and vomiting Do you need a note to return to daycare/school/sports/work: No HPI HPI Comments History of Present Illness Details This is a 70-year-old female presenting for evaluation of urinary frequency, dysuria and small amounts of urine that has been ongoing since the middle of the night last night. Patient reports bladder pressure this morning. She denies having any overt fevers but has had chills. She denies having any nausea, vomiting, hematuria or abdominal pain. Patient has not taken any medication for treatment of her symptoms. [facility] Medical History Generalized anxiety disorder Right rib fracture Hypercholesterolemia Allergic rhinitis COPD (chronic obstructive pulmonary disease) Surgical History History of pubovaginal sling History of repair of rotator cuff History of ankle surgery History of tonsillectomy History of tubal ligation Family History Father CVD (cardiovascular disease) Myocardial infarction Mother Hypertension Sister No problems noted. Son No problems noted. Son No problems noted. Daughter No problems noted. Daughter No problems noted. Social History Housing: House Alcohol intake: never Patient Tobacco Use Status: Former Tobacco user Tobacco use type: Cigarette e-Cigarette/Vaping Use: Never Used Second Hand Smoke Exposure: Yes service: No Current occupational status: retired Current occupation: rt hand Cognitive needs: No Hearing needs: No Vision needs: Yes Review of Systems Const All systems reviewed & are unremarkable except as noted in HPI and below Reports no additional complaints, Reports chills and Denies fever(s) GI Denies abdominal pain, Denies loose stools, Denies nausea and Denies vomiting Denies hematuria, Denies difficulty voiding, Reports dysuria, Denies urinary incontinence and Reports urinary urgency Musc Reports no additional complaints Skin/Breast Reports system reviewed and no additional complaints, except as documented Psych Reports no additional complaints Jonas/Lymph Reports no additional complaints Aller/Immun Reports no additional complaints Physical Exam Vital Signs: Last Vital Signs Temp 97.6 F 08/30/25 12:14 Pulse 83 08/30/25 12:14 BP 128/86 08/30/25 12:14 Pulse Ox 98 08/30/25 12:14 Oxygen Delivery Method Room Air 08/30/25 12:14 BMI result Body Mass Index 28.0 Patient is afebrile. Const General: cooperative, healthy appearing, comfortable, no acute distress, well developed, alert, awake and Physically active; No ill appearing or lethargic Nutritional Appearance: well nourished Orientation/consciousness: patient oriented x3 and No lethargic Limitations: no limitations Cardio Rate: regular rate Rhythm: regular rhythm GI Inspection: Yes normal to inspection Palpation (GI): Soft to palpation, nontender and no guarding General: Yes Bimanual renal exam normal bilaterally, Yes bladder normal to palpation and Yes no CVA tenderness Bimanual exam- vagina & uterus: bladder normal to palpation Back/Spine/Pelvis Back: no CVA tenderness Neuro General: patient oriented x3 Psych Appearance: grossly normal Mental Status: mental status grossly normal Insight: Good insight present (Psych) Judgement: Good judgement present (Psych) Results Reviewed Results Reviewed: Urinalysis is reviewed, positive for leukocytes and blood. Urine culture is pending. Assessment & Plan Assessment & Plan (1) Urinary frequency: Comment: Patient's urinalysis is positive for blood and leukocytes, antibiotic therapy will be initiated. A urine culture is pending at this time. Code(s): R35.0 - Frequency of micturition Plan: Keflex q.6 hours x7 days. Increase clear fluids daily. Orders: Orders Urine Culture Today R35.0 - Frequency of micturition Medications: New cephalexin 500 mg PO Q6H 28 caps 0RF Coding Level of Care Code Est Pt Level 3 (16944) Diagnoses Urinary frequency R35.0 Time Spent (min) 20
== END 2025-08-30 13:26 | disposition home or self-care (01) ==
PROVIDERS: PCP Internal Medicine; Visit Provider Physician Assistant
DX: R35.0 Frequency of micturition (principal); Z13.9 Encounter for screening, unspecified

== ENCOUNTER 2025-09-11 13:53 | Outpatient (REF) | payer MEDICARE, SELFPAY | END 2025-09-11 13:54 | disposition home or self-care (01) | LOC: HO.LAB 13:53 | PROVIDERS: PCP Internal Medicine | DX: N30.00 Acute cystitis without hematuria (principal) | CPT/HCPCS: 81003; 87086; 99212 ==

== ENCOUNTER 2025-09-11 13:53 | Outpatient (AMB) | payer MEDICARE, SELFPAY ==
--- OUTSIDE RECORDS SUMMARY | 2024-06-29 05:30 | XMS_ITS | Continuity of Care Document ---
Author Organization [facility] Address [address] [place] [address] Dr [address] MD [place] [address] Phone Care Team Providers Care Pattern Chain Builder Name Role Phone Franco ARNOLD, MARNIE, Fredrick JUAREZ Unavailable U navailable Allergies, Adverse Reactions, Alerts Substance Reaction Status Criticality Sulfa (Sulfonamide Antibiotics) Active No Information Procedures Procedure Date No Charge For Services Advance Directives Directive Yes / No Effective [...] Location Reason(s) For Visit Diagnoses Date Provider Encounter Disposition [facility], [address] [place] [address] Dr Plata 1000SuAbimael calderon [place], [id number], tel:[phone] [facility] Encounter for cosmetic surgery 4 Franco ARNOLD RVT, RPVI Robert. [address] [place] [address], [id number], [place]. tel:[phone] [facility], [address] [place] [address] Dr Plata 1000SuAbimael calderon MD, [id number], tel:[phone] [facility] Venous insufficienc y (chronic) (peripheral) 4 Franco ARNOLD RVT, RPVI Robert. [address] [place], [id number], [place]. tel:[phone] [facility], [address] [place] [address] Dr Plata 1000SuAbimael calderon MD, [id number], [place] tel:[phone] [place] Encounter for follow-up examination after completed treatment for conditions other than malignant nePain in left leg 4 Franco ARNOLD RVT, LARRY [place]. [address] [place] [address], [address], [facility] [place], [id number], [place]. tel:[phone] [facility], [address] [place] [address] Dr Plata 1000SuAbimael calderon MD, [id number], [place] tel:[phone] [facility] Encounter for follow-up examination after completed treatment for conditions other than malignant neVaricose veins of left lower extremity with pain 4 Franco ARNOLD RVT, LARRY [place]. [address] [place] [address], [place] [address], [facility] [place], [id number], [place]. tel:[phone] [facility], [address] [place] [address] Dr Plata 1000SuAbimael calderon MD, [id number], [place] tel:[phone] [facility] Encounter for follow-up examination after completed treatment for conditions other than malignant neoplasmPain in left leg 4 Franco ARNOLD RVT, LARRY [place]. [address] [place] [address], [place] [address], [facility] [place], [id number], [place]. tel:[phone] [facility], [address] [place] [address] Dr Plata 1000SuAbimael calderon MD, [id number], [place] tel:[phone] CVR - [facility] Varicose veins of left lower extremity with other complication s 4 Mathew Wick. [address] [place] [address], [address], [place], [id number], [place]. tel:[phone] [facility], [address] [place] [address] Dr Plata 1000SuAbimael calderon MD, [id number], [place] tel:[phone] [facility] Varicose veins of left lower extremity with other complication s 4 Franco ARNOLD RVT, LARRY [place]. [address] [place] [address], [place], [id number], [place]. tel:[phone] [facility], [address] [place] [address] Dr Plata 1000Suite 1000Abimael MD, [id number], [place] tel:[phone] [facility] Cramp and spasmVenous insufficienc y (chronic) (peripheral) Pruritus, unspecified 4 Mallika Mercedes. [address] [place] [address], [place], [id number], [place]. tel:[phone] [facility], [address] [place] [address] Dr Plata 1000[facility] 999Abimael [place], [id number], [place] tel:[phone] [facility] [place] No Information 4 Franco ARNOLD RVT, LARRY [place]. [address] [place] [address], [place], [id number], [place]. tel:[phone] [facility], [address] [place] [address] Dr Plata 1000Suite 999Abimael MD, [id number], [place] tel:[phone] [facility] Varicose veins of bilateral lower extremities with other complication sCramp and spasm 4 Franco ARNOLD RVT, LARRY [place]. [address] [place] [address], [place], [id number], [place]. tel:[phone] [facility], [address] [place] [address] Dr Plata 1000Suite 999Abimael MD, [id number], [place] tel:[phone] [facility] Chronic venous hypertension (idiopathic) with other complication s of left lower extremity 4 Franco ARNOLD RVT, LARRY [place]. [address] [place] [address], [place], [id number], [place]. tel:[phone] Family History Family Member Type Diagnosis Age At Onset No Information Payers Payer name Insurance type Identifiers Authorization(s) Com [facility] Medicare DOMINGA NELSON ID: [id number] Name: Coverage Status Eligibility Check on: [id number] hip to Subscriber: selfPayer Address: [address], [place], [place], [id number], [place]ayer Phone: [phone] [facility] DOMINGA BL r ID: [id number] Name: Coverage Status Eligibility Check on: [id number] hip to Subscriber: selfPayer Address: [address], [place], [address], USPayer Phone: [phone] Social History Type Description Quantity Date Captured Comments Alcohol Use Details Unknown Caffeine Use Details Unknown Tobacco Use Status No Information Smoking Status Smoker, current stat us unknown Non-Smoking Tobacco Use Details : No Details Available : No Details Available Sex Female Current Gender Female (finding) Chief Complaint And Reason For Visit No Information Plan Of Treatment Date Type Action Status Goal Tobacco cessation counseling completed Goal Diet education completed Goal Tobacco cessation counseling completed Goal Tobacco [...] nt Illness No Information Functional Status Date Description Comments No Information Instructions Date Instruction Additional Infor mation Continue compression stocking us e Related to Encounter for Cosmetic Surgery Patient education booklet given Related to Encounter for Cosmetic Surgery Pre and post instruc tions reviewed and provided Related to Venous insufficiency (chronic) (peripheral) Diet education Related to Body mass index (BMI) 30.0-30.9, adult Giving Encouragement to exercise Related to Body mass index (BMI) 30.0-30.9, adult Lifestyle education Related to B luciano mass index (BMI) 30.0-30.9, adult Pre and post instruc tions reviewed and provided Related to Cramp and spasm Diet education Related to Body mass index (BMI) 30.0-30.9, adult Giving Encouragement to exercise Related to Body mass index (BMI) 30.0-30.9, adult Lifestyle education Related to B luciano mass index (BMI) 30.0-30.9, adult Pre and post instruc tions reviewed and provided Related to Varicose veins of bilateral lower extremities with other complications Patient education booklet given Related to Varicose veins of bilateral lower extremities with other complications Assessments Type Assessment Date assessment Encounter for cosmetic surgery O
--- NOTE | 2025-09-11 14:57 | MHC.OFFWIV ---
Intake Vital Signs 09/11/25 14:58 Height 5 ft 1 in Weight 148 lb BMI 28.0 BP 130/90 H Blood Pressure Location Lt brachial Position Sitting Pulse 99 Pulse Source Pulse Oximeter Temp 97.5 F Temp Source Oral Pulse Oximetry (%) 97 Oxygen Delivery Method Room Air Intake Visit Reasons: EP peeing alot possible uti not going away Intake Note: pt presents with concern for unresolved UTI after recent tx. Patient Tobacco Use Status: Former Tobacco user Allergies doxycycline Allergy (Intermediate, Verified 09/11/25 15:02) unknown meperidine (Demerol) Allergy (Intermediate, Verified 09/11/25 15:02) nausea and vomiting morphine (MORPHINE) Allergy (Intermediate, Verified 09/11/25 15:02) NAUSEA & VOMITING, nausea and vomiting oxycodone (OXYCODONE) Allergy (Intermediate, Verified 09/11/25 15:02) NAUSEA & VOMITING sulfamethoxazole (From Bactrim) Adverse Reaction (Intermediate, Verified 09/11/25 15:02) Rash trimethoprim (From Bactrim) Adverse Reaction (Intermediate, Verified 09/11/25 15:02) Rash OxyContin Allergy (Unknown, Uncoded 09/11/25 15:02) nausea and vomiting Do you need a note to return to daycare/school/sports/work: No HPI HPI Comments History of Present Illness Details History - The patient is a 70-year-old female presenting for recurrent symptoms of a urinary tract infection. - She recently finished a course of medication for a UTI, but her symptoms, including chills, returned on Thursday. - She also reports feeling hot and cold. - The patient's previous infection was identified as E. coli. - She admits to behaviors that may have contributed to the infection, such as holding her urine and not drinking enough fluids, particularly while busy with holiday activities. - She denies fever, chills, CP, SOB, back pain, blood in the urine, or vaginal discharge. Physical Exam General: Cooperative, healthy appearing, comfortable, no acute distress and well developed Cardiac: Normal S1 and S2. RRR, no M/R/G noted. Respiratory: Normal respiratory effort and able to speak in complete sentences. Clear to auscultation bilaterally. No w/r/r noted. Skin: No rashes or lesions noted. GI: Normal inspection. Normal BS noted. Soft, non-tender, non-distended. No TTP of all 4 quadrants. No guarding or rebound tenderness noted. Back: Negative CVA bilaterally Patient was informed and verbally consented to the use of an ambient scribe for clinic note documentation during this visit. [facility] Medical History (Updated 09/11/25 @ 16:04 by Gem Swift PA-C) Urinary frequency Generalized anxiety disorder Right rib fracture Hypercholesterolemia Allergic rhinitis COPD (chronic obstructive pulmonary disease) Surgical History History of pubovaginal sling History of repair of rotator cuff History of ankle surgery History of tonsillectomy History of tubal ligation Family History Father CVD (cardiovascular disease) Myocardial infarction Mother Hypertension Sister No problems noted. Son No problems noted. Son No problems noted. Daughter No problems noted. Daughter No problems noted. Social History Housing: House Alcohol intake: never Patient Tobacco Use Status: Former Tobacco user Tobacco use type: Cigarette e-Cigarette/Vaping Use: Never Used Second Hand Smoke Exposure: Yes service: No Current occupational status: retired Current occupation: rt hand Cognitive needs: No Hearing needs: No Vision needs: Yes Review of Systems Const All systems reviewed & are unremarkable except as noted in HPI and below Physical Exam Vital Signs: Last Vital Signs Temp 97.5 F 09/11/25 14:58 Pulse 99 09/11/25 14:58 BP 130/90 H 09/11/25 14:58 Pulse Ox 97 09/11/25 14:58 Oxygen Delivery Method Room Air 09/11/25 14:58 BMI result Body Mass Index 28.0 Results AMB Urinalysis, Automated UA Leukoctes 15 Liberty/uL Last Edit by Jovana Mayers CMA on 09/11/25 15:12 UA Nitrite Negative Last Edit by Jovana Mayers CMA on 09/11/25 15:12 UA Urobilinogen 0.2 mg/dL Last Edit by Jovana Mayers CMA on 09/11/25 15:12 UA Protein 0 mg/dL Last Edit by Jovana Mayers CMA on 09/11/25 15:12 UA pH 6.0 Last Edit by Jovana Mayers CMA on 09/11/25 15:12 UA Blood 0 Yovanny/uL Last Edit by Jovana Mayers CMA on 09/11/25 15:12 UA Specific [place] 1.005 Last Edit by Jovana Mayers CMA on 09/11/25 15:12 UA Ketone Negative Last Edit by Jovana Mayers CMA on 09/11/25 15:12 UA Bilirubin 0 mg/dL Last Edit by Jovana Mayers CMA on 09/11/25 15:12 UA Glucose 0 mg/dL Last Edit by Jovana Mayers CMA on 09/11/25 15:12 Results Reviewed Results Reviewed: Laboratory Last Values Urine pH (Auto) 6.0 09/11/25 15:10 Specific [place] (Auto) 1.005 09/11/25 15:10 Urine Protein (Auto) 0 mg/dL 09/11/25 15:10 Glucose (UA)(Auto) 0 mg/dL 09/11/25 15:10 Urine Ketones (Auto) Negative 09/11/25 15:10 Urine Blood (Auto) 0 Yovanny/uL 09/11/25 15:10 Urine Nitrite (Auto) Negative 09/11/25 15:10 Urine Bilirubin (Auto) 0 mg/dL 09/11/25 15:10 Urine Urobilinogen (Auto) 0.2 mg/dL 09/11/25 15:10 Leukocyte Esterase (Auto) 15 Liberty/uL H 09/11/25 15:10 Assessment & Plan Assessment & Plan (1) UTI (urinary tract infection): Code(s): N39.0 - Urinary tract infection, site not specified Qualifiers: Urinary tract infection type: acute cystitis Hematuria presence: without hematuria Qualified Code(s): N30.00 - Acute cystitis without hematuria Plan Most likely UTI, unresolved UA is +leuko Plan - A new prescription for Cipro will be sent to the pharmacy for a 7-day course to treat the suspected E. coli UTI, as the previous antibiotic was not fully effective. - A repeat urine culture will be performed to confirm the causative organism has not changed. - The patient was advised to continue to push fluids. - The patient was instructed to seek follow-up care if she develops a fever, back pain, or blood in her urine. - The patient will be notified of the culture results. - follow up with PCP Orders: Orders AMB Urinalysis Automated Today Z13.9 - Encounter for screening, unspecified Urine Culture Today N39.0 - Urinary tract infection, site not specified Medications: New ciprofloxacin HCl 250 mg PO Q12H 14 tabs 0RF 7 days Coding Level of Care Code Est Pt Level 3 (84828) Diagnoses Acute cystitis without hematuria N30.00 Urinary tract infection type: acute cystitis Hematuria presence: without hematuria
[2025-09-11 14:58] VITALS: BP 130/90; PULSE 99; TEMP 36.4; O2SAT 97; BMI 28.0
--- OUTSIDE RECORDS SUMMARY | 2025-09-11 17:24 | XMS_ITS | Clinical Summary ---
Author Organization [facility] Address [address] [place] [id number] Phone Care Team Providers Care Dye Automation Operator Name Role Phone Daniel García MD Primary Care Provider [phone] Allergies Active Allergy Reactions Criticality Noted Date [...] Comments COPD (chronic obstructive pu lmonary disease) ([facility] V24, [facility] V28) DX:COPD (chronic o bstructive [...] Screening 1955 Colorectal Cancer Screening: Colonoscopy 1955 Drug Screen 1955 Non-Opioid Controlled Substance Agreement 1955 RSV Immunization Adult Patients (1 - [...] 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
== END 2025-09-11 16:27 | disposition home or self-care (01) ==
PROVIDERS: PCP Internal Medicine; Visit Provider Physician Assistant Medical
DX: Z13.9 Encounter for screening, unspecified (principal); N30.00 Acute cystitis without hematuria